=== PATIENT | female | born 1960 | race Caucasian/White ===

== ENCOUNTER → 2017-10-20 | Outpatient (CLI) | payer OTHER ==
[~2017-10-20] MED LIST: ACTONEL5 MG; APRISO0.375 GM PO; DIVALPROEX SOD500 MG PO; FOLIC ACID1 MG PO; LANTUS100 UNITS/; LEVOTHYROXINE112 MCG PO; NOVOLOG100 UNIT/1; PANTOPRAZOLE SO20 MG PO; REZYST IM TABL150 MG; ULTRAM50 MG PO
--- NOTE | 2017-10-20 18:09 | Diagnostic Imaging Report ---
CT scan of the LEFT KNEE, WITHOUT injected contrast. TECHNIQUE: Standard departmental protocols were used. Sagittal and coronal reformatted images were obtained. HISTORY: Fall, swelling COMPARISON: Radiographs of the left femur April 18, 2017 FINDINGS: Bone: Beam hardening artifact secondary to the femoral intramedullary jose david. Diffusely decreased mineralization of the osseous structures limits bone detail. A comminuted proximal tibial fracture, extending to the articular surface at the lateral tibial plateau, maximal depression of the articular surface is approximately 4 mm (coronal image 29). The fracture lines are blurred with adjacent subtle callus formation. Joint: Mild medial and minimal patellofemoral compartment degenerative changes. A trace nonspecific joint effusion. Soft Tissues: Diffuse muscle atrophy. Diffuse scattered atherosclerotic vascular calcifications. IMPRESSION: 1. A subacute to early chronic incompletely healed intra-articular lateral tibial plateau fracture. 2. Osseous demineralization. Signed by: Dr. Thang Gama D.O., M.M.M. on 10/20/2017 6:05 PM
--- NOTE | 2017-10-20 18:32 | Diagnostic Imaging Report ---
TECHNIQUE: Magnetic resonance imaging of the RIGHT foot (fourth toe) was performed WITHOUT injected contrast. HISTORY: Ulcer fourth toe, diabetes COMPARISON: None available. DISCUSSION: Bone: Bone marrow edema of the fourth distal phalanx with confluent decreased fatty marrow signal of the mid to distal portion and apparent attenuation of the tuft. Joints: The amount of fluid within the regional joints is within physiologic limits. Mild scattered degenerative changes. Soft Tissues: No drainable fluid collection. Mild regional soft tissue edema. Diffuse atrophy of the visualized intrinsic muscles of the foot. IMPRESSION: Findings compatible with osteomyelitis involving the mid to distal aspect of the fourth distal phalanx. Signed by: Dr. Thang Gama D.O., M.M.M. on 10/20/2017 6:28 PM
== END ==
LOC: CARD 12:48
PROVIDERS: ATTEND Family Medicine
DX: S89.92XA Unspecified injury of left lower leg, initial encounter (principal); R22.42 Localized swelling, mass and lump, left lower limb
CPT/HCPCS: 93922; 93925; 93970

== ENCOUNTER 2017-11-01 18:42 | Inpatient (IN) | payer MEDICARE, OTHER ==
[~2017-11-01] VITALS: Ht 162.6 cm; Wt 84.0 kg
[~2017-11-01 18:42] MED LIST changes: -ACTONEL5 MG; +ACTONEL5 MG PO
--- OUTSIDE RECORDS SUMMARY | 2017-11-01 21:02 | XMS REPORT ---
Author Author [facility] Address Unknown Phone Unavailable Care Team Providers Care Equal Opportunity Representative Name Role Phone DENNIS VALDEZ Unavailable Unavailable Problems This patient has no known problems. Allergies, Adverse Reactions, Alerts This patient has no known allergies or adverse reactions. Medications This patient has no known medications. Results Test Description Test Time Test Comments Text Results Atomic Results Result Comments CT KNEE LEFT WO [facility] [address] [address] Patient Name: MELVI DONG MR #: [id number] : 1960 Age/Sex: 57/F Req #: [id number] Adm Physician: Ordered by: DENNIS VALDEZ MD Report #: [id number] Location: CARD Room/Bed: Procedure: [id number] CT/CT KNEE LEFT WO Exam Date: 10/20/17 Exam Time: 1600 REPORT STATUS: Signed CT scan of the LEFT KNEE, WITHOUT injected contrast. TECHNIQUE: Standard departmental protocols were used. Sagittal and coronal reformatted images were obtained. HISTORY: Fall , swelling COMPARISON: Radiographs of the left femur April 18, 2017 FINDINGS: Bone: Beam hardening artifact secondary to the femoral intramedullary jose david. Diffusely decreased mineralization of the osseous structures limits bone detail. A comminuted proximal tibial fracture, extending to the articular surface at the lateral tibial plateau, maximal depression of the articular surface is approximately 4 mm (coronal image 29). The fracture lines are blurred with adjacent subtle callus formation. Joint: Mild medial and minimal patellofemoral compartment degenerative changes. A trace nonspecific joint effusion. Soft Tissues: Diffuse muscle atrophy. Diffuse scattered atherosclerotic vascular calcifications. IMPRESSION: 1. A subacute to early chronic incompletely healed intra-articular lateral tibial plateau fracture. 2. Osseous demineralization. Signed by: Dr. Raquel Gama D.O., M.M.M. on 10/20/2017 6: 05 PM Dictated By: RAQUEL GAMA DO 04 Transcribed By: RIGO on 10/20/171804 COPY TO: DENNIS VALDEZ MD MRI FOOT RIGHT WO [address] [address] Patient Name: MELVI DONG MR #: [id number] : 1960 Age/Sex: 57/F Req #: [id number] Adm Physician: Ordered by: DENNIS VALDEZ MD Report #: [id number] Location: CARD Room/Bed: Procedure: [id number] MRI/MRI FOOT RIGHT WO Exam Date: Exam Time: REPORT STATUS: Signed TECHNIQUE: Magnetic resonance imaging of the RIGHT foot (fourth toe) was performed WITHOUT injected contrast. HISTORY : Ulcer fourth toe, diabetes COMPARISON: None available. DISCUSSION: Bone: Bone marrow edema of the fourth distal phalanx with confluent decreased fatty marrow signal of the mid to distal portion and apparent attenuation of the tuft. Joints: The amount of fluid within the regional joints is within physiologic limits. Mild scattered degenerative changes. Soft Tissues: No drainable fluid collection. Mild regional soft tissue edema. Diffuse atrophy of the visualized intrinsic muscles of the foot. IMPRESSION: Findings compatible with osteomyelitis involving the mid to distal aspect of the fourth distal phalanx. Signed by: Dr. Raquel Gama D.O., M.M.M. on 10/20/2017 6:28 PM Dictated By: RAQUEL GAMA DO 27 Transcribed By: RIGO on 10/20/171827 COPY TO: DENNIS VALDEZ MD FEMUR 2 VIEWS MINIMUM LEFT [address] [address] Patient Name: MELVI DONG MR #: [id number] : 1960 Age/Sex: 57/F Req #: [id number] Adm Physician: Ordered by: DENNIS VALDEZ MD Report #: [id number] Location: [facility] Room/Bed: Procedure: [id number] DX/FEMUR 2 VIEWS MINIMUM LEFT Exam Date: Exam Time: REPORT STATUS: Signed PROCEDURE: FEMUR 2 VIEWS MINIMUM LEFT COMPARISON: None. INDICATIONS: POSSIBLE INFECTION, LEFT LEG SWELLING PAIN FINDINGS: Left femoral diaphyseal jose david and intertrochanteric interlocking screw. No lucencies to suggest loosening or infection. Significant myositis ossificans along the inferior aspect of the femoral neck. There are no fractures, dislocations, lytic or blastic lesions. The bones are well-mineralized. The soft-tissues are unremarkable. CONCLUSION: Stable left femoral jose david with no evidence of loosening or infection. Dictated by: Regine Crouch M.D. on 2016 at 15:47 Electronically approved by: Regine Crouch M.D. on 04/18/2017 at 15:47 Dictated By: REGINE CROUCH MD 1542 Transcribed By: MATTIE on 04/18/17 1542 COPY TO: DENNIS VALDEZ MD HIP LEFT 2-3 VW (+/- PELVIS) [place] [address] Patient Name: MELVI DONG MR #: [id number] : 1960 Age/Sex: 57/F Req #: [id number] Adm Physician: Ordered by: DENNIS VALDEZ MD Report #: [id number] Location: [facility] Room/Bed: Procedure: [id number] DX/HIP LEFT 2-3 VW (+/- PELVIS) Exam Date: Exam Time: REPORT STATUS: Signed PROCEDURE: HIP LEFT 2 -3 VW (+/- PELVIS) COMPARISON: None. INDICATIONS: LEFT HIP PAIN , POSSIBLE INFECTION, PAIN FINDINGS: BONES: Left femoral diaphyseal jose david with intertrochanteric interlocking screw. No evidence of loosening or infection. Protuberant myositis ossificans. Normal mineralization. No acute fracture or dislocation. Joint spaces are within normal limits. SOFT TISSUES: Negative. OTHER: Negative. CONCLUSION: Left femoral diaphyseal jose david with intertrochanteric interlocking screw. No evidence of loosening or infection. Dictated by : Regine Crouch M.D. on 04/18/2017 at 15:48 Electronically approved by: Regine Crouch M.D. on 04/18/2017 at 15:48 Dictated By: REGINE CROUCH MD 1548 Transcribed By: MATTIE on 04/18/17 8307 COPY TO: DENNIS VALDEZ MD MAMMOGRAPHY DIGITAL SCR BILAT [place] [address] Patient Name: MELVI DONG MR #: [id number] : 1960 Age/Sex: 57/F [facility] #: [id number] [facility] Physician: Ordered by: DENNIS VALDEZ MD Report #: [id number] Location: MAMMO Room/Bed: Procedure: [id number] MG/MAMMOGRAPHY DIGITAL SCR BILAT Exam Date: 03/15/17 Exam Time: 1206 REPORT STATUS: Signed # [id number] - [id number] #BILATERAL DIGITAL SCREENING MAMMOGRAM WITH CAD: 03/15 CLINICAL: Routine screening. No prior exams were available for comparison. Current study contains 4 films. There are scattered fibroglandular elements in both breasts. Current study was also evaluated with a Computer Aided Detection (CAD) system. There is an amorphous calcification in the right breast central to the nipple middle depth. There is an amorphous calcification in the left breast at 11 o'clock anterior depth. Both of these calcifications were highlighted with CAD analysis. Scattered benign appearing calcifications are present in both breasts. No other significant masses or calcifications are seen in either breast. IMPRESSION: INCOMPLETE: NEEDS ADDITIONAL IMAGING EVALUATION The amorphous calcification in the right breast central to the nipple middle depth is indeterminate. Spot magnification/compression views are recommended. The amorphous calcification in the left breast at 11 o'clock anterior depth is indeterminate. Spot magnification/compression views are recommended. The patient will be contacted by the Mammography Department to schedule this appointment. Angelic Poe Jr., D.O. cw/:03/17/2017 13:22: 46 Carrot Buncher: Dagmar HARDING)(M), [facility] letter sent: Additional Imaging Needed Mammogram BI-RADS: 0 Indeterminate Dictated By: ANGELIC POE DO 1322 Transcribed By: PARUL on 03/17/17 1322 COPY TO: DENNIS VALDEZ MD
[2017-11-01 21:30] VITALS: BP 150/67
[2017-11-01 22:25] LABS: BASOPHILS % 0.6 % (0.0-1.0); EOSINOPHILS # (AUTO) 0.2 (0.0-0.4); EOSINOPHILS % 4.2 % (0.0-6.0); HEMATOCRIT 35.5 % (34.2-44.1); HEMOGLOBIN 11.7 g/dL (12.0-16.0); LYMPHOCYTES # (AUTO) 2.1 (1.0-3.2); MEAN CORPUSCULAR HEMOGLOBIN 29.7 pg (28-32); MEAN CORPUSCULAR VOLUME 90.1 fL (81-99); MONOCYTES # (AUTO) 0.3 (0.2-0.8); MONOCYTES % 5.9 % (4.4-11.3); NEUTROPHILS # (AUTO) 2.8 (2.1-6.9); NEUTROPHILS % 51.1 % (38.7-80.0); PLATELET COUNT 209 x10e3/uL (140-360); RED BLOOD COUNT 3.94 x10e6/uL (3.6-5.1); RED CELL DISTRIBUTION WIDTH 13.2 % (11.7-14.4)
[2017-11-01 22:35] VITALS: BP 150/67
[2017-11-01 22:38] LABS: ANION GAP 9.8 mmol/L (8-16); BLOOD UREA NITROGEN 13 mg/dL (7-26); BUN/CREATININE RATIO 18 (6-25); CALCIUM 9.2 mg/dL (8.4-10.2); CARBON DIOXIDE 31 mmol/L (22-29); CHLORIDE 103 mmol/L (98-107); CREATININE, SERUM 0.74 mg/dL (0.57-1.11); EST GLOMERULAR FILTRATION RATE > 60 ML/MIN (60-); GLUCOSE 77 mg/dL (74-118); POTASSIUM 3.8 mmol/L (3.5-5.1); SODIUM 140 mmol/L (136-145)
[2017-11-01] MEDS ORDERED: VANCOMYCIN 1GM/NS 250 ML 250 ML IV SCH (23:45)
[2017-11-02] VITALS: BP 166/72
[2017-11-02] MEDS ORDERED: HUMALOG100 UNIT/1 SQ (01:36)
[2017-11-02] MEDS ORDERED: [UNRECOGNIZED DRUG - OTHER] ×2 (01:36→01:37)
[2017-11-02] MEDS ORDERED: CLONIDINE HCL0.1 MG PO (01:36)
[2017-11-02] MEDS ORDERED: [UNRECOGNIZED DRUG - OTHER] PO (01:36)
[2017-11-02] MEDS ORDERED: PROBIOTIC & AC1 EACH PO (01:36)
[2017-11-02] MEDS ORDERED: LASIX40 MG PO (01:36)
[2017-11-02] MEDS ORDERED: [UNRECOGNIZED DRUG - OTHER] PO (01:36)
[2017-11-02] MEDS ORDERED: [UNRECOGNIZED DRUG - OTHER] SQ SCH (01:45)
[2017-11-02] MEDS ORDERED: [UNRECOGNIZED DRUG - OTHER] PO SCH (01:45)
[2017-11-02] MEDS: VANCOMYCIN 1GM/NS 250 ML 250 ML IV SCH ×2 (01:57→14:45)
[2017-11-02] MEDS ORDERED: SODIUM CHLORIDE 0.9% 250ML 0 ML ONE (01:58)
[2017-11-02] MEDS ORDERED: DEXTROSE 50% SYRINGE 50 ML IV PRN ×2 (02:15→02:30)
[2017-11-02 04:00] VITALS: BP 128/57
[2017-11-02] MEDS: LEVOTHYROXINE SODIUM 112 MCG TAB PO SCH (06:29)
[2017-11-02] MEDS: PANTOPRAZOLE SOD 40 MG TABEC PO SCH (07:30)
[2017-11-02] MEDS: INSULIN LISPRO 100 UNIT/1 ML 3ML VIAL SQ SCH ×4 (07:30→20:55)
[2017-11-02] MEDS ORDERED: INSULIN LISPRO 100 UNIT/1 ML 3ML VIAL SQ SCH ×3 (07:30→09:00)
[2017-11-02 08:00] VITALS: BP 128/58
[2017-11-02] MEDS: LACTOBACILLUS ACIDOPHILUS CAPSULE PO SCH (08:55)
[2017-11-02] MEDS: FUROSEMIDE 40 MG TAB PO SCH (08:55)
[2017-11-02] MEDS: [UNRECOGNIZED DRUG - OTHER] SC SCH ×2 (09:00→21:00)
[2017-11-02] MEDS ORDERED: MESALAMINE 0.375 GM CAPCR PO SCH (09:00)
[2017-11-02] MEDS: CLONIDINE HCL 0.1 MG TAB PO SCH ×2 (09:00→16:56)
[2017-11-02] MEDS ORDERED: RISEDRONATE 5 MG TAB PO SCH (09:00)
[2017-11-02] MEDS ORDERED: LACTOBACILLUS ACIDOPHILUS CAPSULE PO SCH (09:00)
[2017-11-02] MEDS: [UNRECOGNIZED DRUG - OTHER] PO SCH (09:00)
[2017-11-02] MEDS: ACETAMINOPHEN 325 MG TAB PO PRN (10:50)
[2017-11-02 12:00] VITALS: BP 177/74
--- NOTE | 2017-11-02 13:56 | Consultation ---
DATE OF CONSULTATION: November 02, 2017 PODIATRIC CONSULTATION ADMITTING PHYSICIAN: Dr. Jose Alfredo Escobar. CHIEF COMPLAINT: A painful sore on the end of the 4th right toe. HISTORY: The patient relates that she has had this lesion, an ulcer on the distal aspect for several months. She has been treated at at least one other podiatry office to no avail. She was sent to [facility] on October 20, 2017, for an MRI, which indicated osteomyelitis in the distal phalanx of the 4th toe. Her white count on admission is 5.5. PHYSICAL EXAMINATION: On clinical exam, the patient exhibits a mallet toe __5th and, therefore, is walking on the end of the toe. At this point, she has an ulcer approximately 0.8 cm in diameter on the distal aspect. On vascular exam, the pulses are all palpable. Capillary filling time is 2 seconds. IMPRESSION/PLAN: My impression is that the patient has osteomyelitis in the distal phalanx of the 4th right toe. My recommendation would be that the distal aspect of the toe be amputated and the patient be treated outpatient on oral antibiotics. The patient is scheduled at 7 o'clock tomorrow, October __2017, for a partial amputation 4th right. Job#: [id number] EV
[2017-11-02] MEDS ORDERED: DEPAKOTE DELAYED-RELEASE TAB 500 MG PO SCH (15:00)
[2017-11-02] MEDS ORDERED: SODIUM CHLORIDE 0.9% 250ML 250 ML ONE (15:04)
[2017-11-02 16:00] VITALS: BP 144/61
--- NOTE | 2017-11-02 16:14 | History and Physical ---
REASON FOR ADMISSION: The patient comes into the hospital as a direct admission for findings of osteomyelitis in the right foot. HISTORY OF PRESENT ILLNESS: Ms. Swetha Pires has a history of diabetes mellitus. She was in her usual state of health until a couple of months ago. The patient started having toe ulceration and infection. She was given multiple antibiotics and treated on an outpatient basis with antibiotics for the infection. Multiple debridements have been done. MRI was done, and the MRI showed osteomyelitis. The patient was admitted to the hospital for possible amputation of the toe and also IV antibiotics if needed. PAST MEDICAL HISTORY 1. History of diabetes mellitus. 2. History of asthma. 3. History of chronic kidney disease. 4. History of hyperlipidemia. 5. History of neuropathy. 6. History of allergic rhinitis. 7. History of lymphedema. 8. History of bipolar disorder. 9. Peripheral vascular disease. MEDICATIONS: Include: 1. Apriso 0.375 g. 2. Toujeo 40 units. 3. Humalog. 4. Pantoprazole. 5. Levothyroxine. 6. Trileptal 300 mg. 7. Furosemide 80. 8. Clonidine 0.1. 9. Pravastatin 20. 10. Actonel 5 mg for osteoporosis. 11. Glucagon for emergency hypoglycemic episodes. 12. The patient also has some mupirocin as needed. SURGICAL HISTORY 1. History of hysterectomy. 2. Cholecystectomy. 3. Left femur surgery. 4. Heart surgery. SOCIAL HISTORY: The patient has mental retardation and also lives with mother. No EtOH. No IV drug abuse either. REVIEW OF SYSTEMS: Negative for chest pain or shortness of breath. No nausea, vomiting, diarrhea. No constipation. No rectal bleeding. Positive for emotional lability. No diplopia. No blurry vision either. Positive for fever and tenderness in the right foot, especially the toe. PHYSICAL EXAMINATION GENERAL: The patient is alert and oriented times 3. VITALS: Blood pressure is 118/70. BMI is 30.89 with weight of 180. HEENT: Normocephalic and atraumatic. There is hearing loss on the left side. Oral cavity is moist. No lesions. Throat is normal, no exudate, no pharyngeal erythema. NECK: No JVD. CV: S1 and S2 normal, regular rate and rhythm. LUNGS: Clear to auscultation bilaterally. BACK: Full range of motion. MUSCULOSKELETAL: Plantar surface with tenderness of the left foot. Left knee tenderness. Also, ulceration of the left foot. EXTREMITIES: 2+ pitting edema on the left lower extremity. PSYCHIATRIC: Alert and oriented. Cognitive function is intact. Cooperative with exam. LABS: Pending. MRI shows chronic osteomyelitis. ASSESSMENT AND PLAN 1. Chronic osteomyelitis, left foot. The plan is to get into the hospital and start antibiotics. Have Dr. Ventura see the patient. The patient has been seen by Dr. Ventura, and the patient will have amputation of the toe tomorrow. After that, the patient can be discharged. Further recommendations per clinical course. We will continue to monitor the patient as inpatient and as an outpatient, too. We will also restart her home medications, especially her diabetic medications. 2. History of diabetes mellitus. 3. Hypertension. 4. Hyperlipidemia. 5. Peripheral arterial disease. 6. Depression. 7. Cognitive deficit. Job#: [id number]
[2017-11-02 20:00] VITALS: BP 170/71
[2017-11-02] MEDS ORDERED: [UNRECOGNIZED DRUG - OTHER] SQ SCH (21:00)
[2017-11-02] MEDS ORDERED: [UNRECOGNIZED DRUG - OTHER] PO SCH (21:00)
[2017-11-02] MEDS: [UNRECOGNIZED DRUG - OTHER] PO SCH (21:00)
[2017-11-03] VITALS (7 sets, daily range): BP systolic 105–147; BP diastolic 47–63
[2017-11-03] MEDS: VANCOMYCIN 1GM/NS 250 ML 250 ML IV SCH ×2 (02:00→14:41)
--- NOTE | 2017-11-03 02:27 | Consultation ---
DATE OF CONSULTATION: REASON FOR CONSULTATION: Right foot osteomyelitis. HISTORY OF PRESENT ILLNESS: This is a very pleasant 57-year-old female who has history of diabetes mellitus, asthma, chronic kidney disease, hyperlipidemia, neuropathy, allergic rhinitis, lymphedema, bipolar disorder, vascular disease, who is coming to the hospital with redness and swelling of her right foot. The patient has been having this problem for several months ago. Apparently, she had an ulcer. She had been seeing podiatry as an outpatient, had multiple debridements, multiple oral antibiotics, but in spite of that it is getting progressively worse. Most recently MRI was done, showed to have osteomyelitis, so she was sent to the hospital for surgical debridement and possible amputation. Infectious disease was consulted. Patient does not provide any complaints at present time. Her family at the bedside. PAST MEDICAL HISTORY: As mentioned above. Diabetes mellitus, asthma, chronic kidney disease, hyperlipidemia, neuropathy, lymphedema, bipolar disorder, vascular disease. PAST SURGICAL HISTORY: Hysterectomy, cholecystectomy, left femur surgery, and heart surgery. SOCIAL HISTORY: She is mentally retarded. There is no smoking, drug abuse, alcohol abuse. FAMILY HISTORY: Hypertension. REVIEW OF SYSTEMS: HEENT: There is no headache, visual changes or hearing changes. GI: There is no nausea, no vomiting, no diarrhea. CARDIAC: There is no arrhythmia. NEURO: No seizure activity. SKIN: There is no rash. LABS: White count 5.42, hemoglobin 11. Her sodium 140, potassium 3.8, creatinine 0.74. PHYSICAL EXAMINATION: GENERAL: She is currently alert and oriented, follows commands. VITALS: Stable, afebrile. HEENT: She does not appear icteric. NECK: Supple. CHEST: Clear. HEART: S1 and S2. No murmur. ABDOMEN: Soft. Bowel sounds present. No tenderness. EXTREMITIES: No edema. SKIN: No rash. The foot has no erythema or edema, but there is an ulcer noted and swelling of the toe. MEDICATIONS: She is currently on vancomycin and clonidine. IMPRESSION: Osteomyelitis of the fourth digit. Patient is going for amputation. Continue with vancomycin for the time being. Will add Invanz since SHE IS ALLERGIC TO PENICILLIN. Await culture and sensitivity. Will see the finding of the surgery and how she is going to do. Discussed with the family. Will follow complete blood cell count and chemistry panel. Obtain a sedimentation rate, C-reactive protein. Depending on the surgery, may have intravenous antibiotic for a week or two post surgery. Will follow with you. Thank you. Job#: [id number]
[2017-11-03] MEDS: ERTAPENEM 1GM/NS 100ML 100 ML IV SCH (02:30)
[2017-11-03] MEDS: LEVOTHYROXINE SODIUM 112 MCG TAB PO SCH (04:33)
[2017-11-03] MEDS: INSULIN LISPRO 100 UNIT/1 ML 3ML VIAL SQ SCH ×4 (07:30→20:23)
[2017-11-03] MEDS: PANTOPRAZOLE SOD 40 MG TABEC PO SCH (07:30)
[2017-11-03] MEDS ORDERED: MESALAMINE 0.375 GM CAPCR PO SCH (09:00)
[2017-11-03] MEDS: [UNRECOGNIZED DRUG - OTHER] SC SCH ×2 (09:00→21:00)
[2017-11-03] MEDS: [UNRECOGNIZED DRUG - OTHER] PO SCH (09:00)
[2017-11-03] MEDS ORDERED: MESALAMINE 500 MG CAPCR PO SCH (09:00)
[2017-11-03] MEDS: MESALAMINE 0.375 GM CAPCR PO SCH (10:18)
[2017-11-03] MEDS: CLONIDINE HCL 0.1 MG TAB PO SCH ×2 (10:22→17:00)
[2017-11-03] MEDS: FUROSEMIDE 40 MG TAB PO SCH (10:22)
[2017-11-03] MEDS: LACTOBACILLUS ACIDOPHILUS CAPSULE PO SCH (10:22)
--- NOTE | 2017-11-03 10:35 | Operative Report ---
DATE OF PROCEDURE: November 03, 2017 PREOPERATIVE DIAGNOSIS: Osteomyelitis distal aspect, 4th toe. POSTOPERATIVE DIAGNOSIS: Osteomyelitis distal aspect, 4th toe. OPERATIVE PROCEDURE: Partial amputation, 4th right toe. DESCRIPTION OF PROCEDURE: The patient was placed on the OR table in the supine position. The right lower extremity was prepped and draped in the usual manner. Hemostasis was accomplished with a pneumatic cuff set at ankle level at 250 mmHg. The patient had IV sedation with a local anesthetic consisting of 5 mL of 0.5 Marcaine. A fish-mouth incision was made on the distal aspect of the 4th right toe. The dorsal lip came from medial to lateral across the dorsum of the toe at the level of the back of the nail. A similar incision was made on the plantar aspect. Both incisions were then extended proximally approximately 1 cm. The 2 lips were then retracted proximally. This exposed both the middle and distal phalanx. The proximal interphalangeal joint between the middle and proximal phalanx was then disarticulated and the middle and distal phalanx were removed. The soft tissue was remodeled and the wound was flushed extensively and then, the skin was closed with 4-0 nylon. A sterile compression dressing was then applied. At this time, the pneumatic cuff was released and a reflex hyperemia was observed in the remaining digits. The patient tolerated the procedure and anesthesia well and left the OR to recovery in good condition with vital signs stable. Job#: [id number] PSO
[2017-11-03] MEDS ORDERED: LIDOCAINE HCL 2% LOCAL INJ 5 ML SDV VIAL INJ ONE (13:42)
[2017-11-03] MEDS ORDERED: ONDANSETRON HCL INJ 2 MG/ML VIAL ONE (13:42)
[2017-11-03] MEDS ORDERED: PROPOFOL IV EMULSION 10 MG/ML 20 ML VIAL ONE (13:42)
[2017-11-03] MEDS ORDERED: MIDAZOLAM HCL 2 MG/2 ML VIAL ONE (17:31)
[2017-11-03] MEDS ORDERED: FENTANYL CITRATE/PF 100MCG/2 ML INJ ONE (17:31)
[2017-11-03] MEDS: RISEDRONATE 5 MG TAB PO SCH (20:37)
[2017-11-03] MEDS: [UNRECOGNIZED DRUG - OTHER] PO SCH (20:37)
[2017-11-04] VITALS (9 sets, daily range): BP systolic 111–152; BP diastolic 55–68
[2017-11-04] MEDS: ERTAPENEM 1GM/NS 100ML 100 ML IV SCH (00:19)
[2017-11-04] MEDS: ACETAMINOPHEN 325 MG TAB PO PRN (01:37)
[2017-11-04] MEDS: VANCOMYCIN 1GM/NS 250 ML 250 ML IV SCH ×2 (02:10→14:27)
[2017-11-04] MEDS: LEVOTHYROXINE SODIUM 112 MCG TAB PO SCH (05:54)
[2017-11-04] MEDS: INSULIN LISPRO 100 UNIT/1 ML 3ML VIAL SQ SCH ×4 (07:30→21:54)
[2017-11-04] MEDS: PANTOPRAZOLE SOD 40 MG TABEC PO SCH (07:30)
[2017-11-04] MEDS: MESALAMINE 0.375 GM CAPCR PO SCH (09:08)
[2017-11-04] MEDS: [UNRECOGNIZED DRUG - OTHER] PO SCH (09:08)
[2017-11-04] MEDS: LACTOBACILLUS ACIDOPHILUS CAPSULE PO SCH (09:08)
[2017-11-04] MEDS: [UNRECOGNIZED DRUG - OTHER] SC SCH ×2 (09:08→21:54)
[2017-11-04] MEDS: CLONIDINE HCL 0.1 MG TAB PO SCH ×2 (09:08→17:06)
[2017-11-04] MEDS: FUROSEMIDE 40 MG TAB PO SCH (09:08)
[2017-11-04] MEDS: [UNRECOGNIZED DRUG - OTHER] PO SCH (21:54)
[2017-11-04] MEDS: RISEDRONATE 5 MG TAB PO SCH (21:54)
[2017-11-05] MEDS: ERTAPENEM 1GM/NS 100ML 100 ML IV SCH (00:25)
[2017-11-05] MEDS: VANCOMYCIN 1GM/NS 250 ML 250 ML IV SCH ×2 (03:00→14:00)
[2017-11-05 04:30] VITALS: BP 127/58
[2017-11-05] MEDS: LEVOTHYROXINE SODIUM 112 MCG TAB PO SCH (06:43)
[2017-11-05] MEDS: ACETAMINOPHEN 325 MG TAB PO PRN (07:03)
[2017-11-05 07:10] VITALS: BP 132/63
[2017-11-05] MEDS: INSULIN LISPRO 100 UNIT/1 ML 3ML VIAL SQ SCH ×3 (07:30→16:30)
[2017-11-05 07:32] VITALS: BP 132/63
[2017-11-05] MEDS: PANTOPRAZOLE SOD 40 MG TABEC PO SCH (07:45)
[2017-11-05] MEDS: [UNRECOGNIZED DRUG - OTHER] PO SCH (09:19)
[2017-11-05] MEDS: [UNRECOGNIZED DRUG - OTHER] SC SCH (09:19)
[2017-11-05] MEDS: LACTOBACILLUS ACIDOPHILUS CAPSULE PO SCH (09:19)
[2017-11-05] MEDS: FUROSEMIDE 40 MG TAB PO SCH (09:19)
[2017-11-05] MEDS: MESALAMINE 0.375 GM CAPCR PO SCH (09:19)
[2017-11-05] MEDS: CLONIDINE HCL 0.1 MG TAB PO SCH ×2 (09:19→17:00)
[2017-11-05 11:24] VITALS: BP 112/54
--- NOTE | 2017-11-05 14:34 | Discharge Summary ---
The patient was admitted for osteomyelitis of the right foot. She also has a history of diabetes, asthma, chronic kidney disease, hyperlipidemia, allergic rhinitis, lymphedema, bipolar and peripheral vascular disease. She was admitted and started on IV antibiotics. She was seen by podiatry and infectious disease and continued on her home medications. She underwent partial amputation of the right foot 4th digit on 11/03/2017. She tolerated surgery well and continued to improve. Today when she was seen she was afebrile. Her heart rate was 76, respiratory rate 18, blood pressure 112/60. She was awake, alert and oriented times 3. Her labs and medications were reviewed, and she was considered stable to be discharged home. DISCHARGE DIAGNOSES 1. Osteomyelitis of the 4th right toe, which had been treated with amputation and intravenous antibiotics. Podiatry, Dr. Ventura was following her and was planning to continue wound care as outpatient in his clinic. 2. History of diabetes and hypertension. She was requested to continue her home medications. 3. Hyperlipidemia. She was requested to continue her home medications. 4. She also has a history of depression and cognitive defect. She was again asked to continue her home medicines. The plan was for her to go home on further p.o. doxycycline and to follow up with podiatry next Monday, primary care next week and also with infectious disease. ALEXX YANEZ M.D. Job#: [id number]
[2017-11-05] MEDS ORDERED: DOXYCYCLINE HY100 MG PO ×3 (14:43→17:07)
[2017-11-05 15:41] VITALS: BP 108/53
== END 2017-11-05 18:15 | disposition home or self-care (01) | DRG 617 ==
LOC: MED/SURG3 21:00
PROVIDERS: ADMIT Family Medicine; ATTEND Family Medicine
PROC: 0Y6V0Z3 Detachment at Right 4th Toe, Low, Open Approach (ICD-10-PCS; principal; 2017-11-03 07:00)
DX: E11.69 Type 2 diabetes mellitus with other specified complication (principal); M86.671 Other chronic osteomyelitis, right ankle and foot; Z79.4 Long term (current) use of insulin; E11.51 Type 2 diabetes mellitus with diabetic peripheral angiopathy without gangrene; R41.89 Other symptoms and signs involving cognitive functions and awareness; E11.22 Type 2 diabetes mellitus with diabetic chronic kidney disease; I12.9 Hypertensive chronic kidney disease with stage 1 through stage 4 chronic kidney disease, or unspecified chronic kidney disease; N18.9 Chronic kidney disease, unspecified; I25.10 Atherosclerotic heart disease of native coronary artery without angina pectoris; F31.9 Bipolar disorder, unspecified; E78.5 Hyperlipidemia, unspecified; Z88.0 Allergy status to penicillin
CPT/HCPCS: 36415; 80048; 80202; 82948; 83036; 85025; 86140; 88305; 88311; 96367; 96372; J2001; J2250; J2405; J3370; J7050

== ENCOUNTER → 2017-12-29 | Outpatient (CLI) | payer OTHER ==
[~2017-12-29] MED LIST changes: +CLONIDINE HCL0.1 MG PO; +DOXYCYCLINE HY100 MG PO; +HUMALOG100 UNIT/1 SQ; +LASIX40 MG PO; +PROBIOTIC & AC1 EACH PO; +[UNRECOGNIZED DRUG - OTHER]; +[UNRECOGNIZED DRUG - OTHER] PO; +[UNRECOGNIZED DRUG - OTHER] PO
--- NOTE | 2017-12-29 16:29 | Diagnostic Imaging Report ---
PROCEDURE:US LIVER COMPARISON:None. INDICATIONS:ELEVATED LIVER ENZYMES TECHNIQUE: Zuniga-scale and color Doppler transverse and longitudinal images of the right upper quadrant of the abdomen were obtained. FINDINGS: Liver: Measures 11.1 cm in length. The echotexture is normal. No mass. Main portal vein: Measures 0.8 cm in diameter with hepatopetal flow. Gallbladder: Absent. Common Bile Duct: 0.3 cm Right kidney: 9.3 cm. Normal echogenicity. No solid masses or hydronephrosis. Pancreas: The visualized portions are increased in echotexture without mass or ductal dilatation. Inferior vena cava: Patent. Aorta: Within normal limits. Ascites: None in the right upper quadrant of the abdomen. CONCLUSION: Status post cholecystectomy. Normal biliary tree. Pancreas lipomatosis. Sonographically normal liver. Dictated by: Queenie Robertson M.D. on 12/29/2017 at 16:32 Electronically approved by: Queenie Robertson M.D. on 12/29/2017 at 16:32
== END ==
LOC: US 14:18
PROVIDERS: ATTEND Family Medicine
DX: R94.5 Abnormal results of liver function studies (principal)
CPT/HCPCS: 76705

== ENCOUNTER → 2018-01-17 | Outpatient (CLI) | payer MEDICARE, OTHER ==
[~2018-01-17] MED LIST changes: +GADOBENATE DIMEGLUMINE 1 ML IV ONE
[2018-01-17 09:57] LABS: BLOOD UREA NITROGEN 18 mg/dL (7-26); BUN/CREATININE RATIO 22 (6-25); CREATININE, SERUM 0.82 mg/dL (0.57-1.11); EST GLOMERULAR FILTRATION RATE > 60 ML/MIN (60-)
--- NOTE | 2018-01-17 11:55 | Diagnostic Imaging Report ---
PROCEDURE: MRI ABDOMEN WOW TECHNIQUE: Multisequence multiplanar MR images of the abdomen and MRCP images were obtained without and with contrast. 16 cc of multisequence was administered intravenously. COMPARISON: Ultrasound 12/29/2017 INDICATIONS: Abnormal ultrasound FINDINGS: LIVER: No signal dropout on out of phase images to indicate hepatic steatosis. Normal liver contour. No hepatic signal abnormality. No focal hepatic lesions. BILIARY: No ductal dilatation or filling defect. Cholecystectomy. PANCREAS: No mass or ductal dilatation. Mild to moderate atrophy. SPLEEN: No splenomegaly. ADRENALS: No nodules. KIDNEYS: No hydronephrosis or mass in the kidneys. PERITONEUM / RETROPERITONEUM: No upper abdominal free fluid. LYMPH NODES: No upper abdominal lymphadenopathy. VESSELS: Unremarkable. 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 IMPRESSION: 1. Mild to moderate pancreatic atrophy in keeping with the ultrasound findings. 2. Cholecystectomy. Dictated by: Jony Drew M.D. on 01/17/2018 at 11:58 Electronically approved by: Jony Drew M.D. on 01/17/2018 at 11:58
== END ==
LOC: MRI 08:55
PROVIDERS: ATTEND Family Medicine
DX: R74.8 Abnormal levels of other serum enzymes (principal); K86.89 Other specified diseases of pancreas
CPT/HCPCS: 36415; 74183; 82565; 84520

== ENCOUNTER → 2019-03-11 | Day surgery (SDC) | payer MEDICARE, OTHER ==
[2019-02-15 15:51] LABS: BASOPHILS # (AUTO) 0.1 (0.0-0.1); BASOPHILS % 0.8 % (0.0-1.0); EOSINOPHILS # (AUTO) 0.4 (0.0-0.4); EOSINOPHILS % 5.8 % (0.0-6.0); HEMATOCRIT 37.4 % (34.2-44.1); HEMOGLOBIN 11.9 g/dL (12.0-16.0); LYMPHOCYTES # (AUTO) 2.3 (1.0-3.2); LYMPHOCYTES % 37.6 % (18.0-39.1); MEAN CORPUSCULAR HEMOGLOBIN 29.7 pg (28-32); MEAN CORPUSCULAR HGB CONC 31.8 g/dL (31-35); MEAN CORPUSCULAR VOLUME 93.3 fL (81-99); MONOCYTES # (AUTO) 0.3 (0.2-0.8); MONOCYTES % 5.2 % (4.4-11.3); NEUTROPHILS # (AUTO) 3.1 (2.1-6.9); NEUTROPHILS % 50.4 % (38.7-80.0); PLATELET COUNT 215 x10e3/uL (140-360); RED BLOOD COUNT 4.01 x10e6/uL (3.6-5.1); RED CELL DISTRIBUTION WIDTH 13.7 % (11.7-14.4)
[~2019-03-11] MED LIST changes: +DEXTROSE 5% 250ML 250 ML IV ONE; +DEXTROSE 5%/LACTATED RINGERS 1,000 ML IV ONE; +FENTANYL CITRATE/PF 100MCG/2 ML INJ ONE; -GADOBENATE DIMEGLUMINE 1 ML IV ONE; +GLUCAGON EMERGEN1 MG SQ; +HYOSCYAMINE 0.125 MG TAB ONE; +MIDAZOLAM HCL 2 MG/2 ML VIAL ONE; +PRAVASTATIN SOD20 MG PO; +PROPOFOL IV EMULSION 10 MG/ML 50 ML VIAL ONE; +SODIUM CHLORIDE 0.9% 1000ML 0 ML ONE; +TRAZODONE HCL100 MG PO; +TRILEPTAL300 MG PO; +TUJEO SQ
--- OUTSIDE RECORDS SUMMARY | 2019-03-11 07:06 | XMS REPORT | Continuity of Care Document ---
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 Phone [employer] Information [employer] Unavailable Unavailable Problems Problem Status Onset Date Classification Date Reported Comments Source R92.8 - OTH ABN AND INCONCLUSIVE FINDI Active 04/28/2017 [facility] [place] 793.81 - MAMMOGRAPHIC CA Active 10/14/2013 [facility] [place] FALL/HBS Active 03/09/2013 [facility] Bipolar Resolved Problem 05/20/2017 [facility] [place] COPD Resolved Problem 05/20/2017 [facility] Crohns disease Resolved Problem 05/20/2017 [facility] DM - Diabetes mellitus Resolved Problem 05/20/2017 [facility] [place] Bipolar Resolved Problem 03/12/2013 [facility] COPD Resolved Problem 03/12/2013 [facility] Crohns disease Resolved Problem 03/12/2013 [facility] DM - Diabetes mellitus Resolved Problem 03/12/2013 [facility] Contusion of rib on right side Active Problem 11/05/2017 [facility] Contusion of right knee Active Problem 11/05/2017 [facility] Medications Medication Details Route Status Patient Instructions Ordering Provider Order Date Source Folic Acid 1 Mg Tablet, 1 Mg Oral Daily Active 12/26/2015 [facility] Insulin regular 10 unit, Route: IVP, ONCE, kg, Priority: STAT, Start date: 03/10/13 1:14:00, Stop date: 03/10/13 1:14:00 IVP No Longer Active Alin 03/10/2013 [facility] ondansetron 4 mg, Route: PO, Drug form: TABDIS, ONCE, kg, Priority: STAT, Start date: 03/09/13 23:58:00, Stop date: 03/09/13 23:58:00 PO No Longer Active Alin 03/10/2013 [facility] Insulin regular 10 unit, Route: IVP, ONCE, kg, Priority: STAT, Start date: 03/09/13 23:04:00, Stop date: 03/09/13 23:04:00 IVP No Longer Active [facility] 03/10/2013 [facility] Sodium Chloride 0.9% (Bolus) IV 500 mL 500 mL, Rate: 500 ml/hr, Infuse over: 1 hr, Route: IV, Total Volume: 500, Priority: STAT, Start date: 03/09/13 23:03:00, Duration: 1 doses or times, Stop date: 03/10/13 0:02:00, Bolus DoseBolus Dose IV No Longer Active [facility] 03/10/2013 [facility] Acidophilus/B.bifidum/B.longum (Rezyst Im Tablet Chew) 150 Mg Tab.chew [facility] Clonidine Hcl 0.1 Mg Tablet Twice A Day Active [facility] Divalproex Sodium 500 Mg Tablet. Three Times A Day Active [facility] Doxycycline Hyclate 100 Mg Capsule Every 12 Hours Active [facility] Furosemide (Lasix) 40 Mg Tablet Daily Active [facility] Insulin Aspart (Novolog) 100 Unit/1 Ml Cartridge Active [facility] Insulin Glargine (Lantus) 100 Units/Ml Ml Active [facility] Insulin Lispro (Humalog) 100 Unit/1 Ml Cartridge Active [facility] Lactobac Cmb #3/Fos/Pantethine (Probiotic & Acidophilus Cap) 1 Each Capsule Daily Active [facility] Levothyroxine Sodium 112 Mcg Tablet Daily Active [facility] Mesalamine (Apriso) 0.375 Gm Cap.er.24h Daily Active [facility] Pantoprazole Sodium 20 Mg Tablet. Daily Active [facility] Risedronate Sodium (Actonel) 5 Mg Tablet Daily Active Unknown dose [facility] Torigel Am Active [facility] Tramadol Hcl (Ultram) 50 Mg Tablet Every 8 Hours as needed for Pain Active [facility] Tripaline Bedtime Active [facility] Trippaline Am Active [facility] Allergies, Adverse Reactions, Alerts Substance Category Reaction Severity Reaction type Status Date Reported Comments Source PENCILLIN Swelling Severe Allergy to Substance Active 12/04/2014 [facility] SULFA Swelling Severe Allergy to Substance Active 12/04/2014 [facility] Morphine Swelling Severe Allergy to Substance Active 11/02/2016 [facility] morphine Assertion Drug allergy Active [facility] penicillins Assertion Propensity to adverse reactions to substance Active [facility] [place] sulfa drugs Assertion Propensity to adverse reactions to substance Active [facility] Immunizations No Data Provided for This Section Results Order Name Results Value Reference Range Date Interpretation Comments Source Capillary blood glucose measurement by glucometer (mass/volume) Capillary blood glucose measurement by glucometer (mass/volume) 92 70 - 120 11/05/2017 [facility] Serum or plasma trough vancomycin level at trough (mass/volume) Serum or plasma trough vancomycin level at trough (mass/volume) 8.0 5.0 - 10.0 11/05/2017 [facility] Automated blood basophil count (count/volume) Automated blood basophil count (count/volume) 0.0 0.0 - 0.1 11/01/2017 [facility] Automated blood basophil count as percentage of total leukocytes Automated blood basophil count as percentage of total leukocytes 0.6 0.0 - 1.0 11/01/2017 [facility] Automated blood eosinophil count Automated blood eosinophil count 0.2 0.0 - 0.4 11/01/2017 [facility] Automated blood eosinophil count as percentage of total leukocytes Automated blood eosinophil count as percentage of total leukocytes 4.2 0.0 - 6.0 11/01/2017 [facility] Automated blood hematocrit (volume fraction) Automated blood hematocrit (volume fraction) 35.5 34.2 - 44.1 11/01/2017 [facility] Automated blood lymphocyte count as percentage ot total leukocytes Automated blood lymphocyte count as percentage ot total leukocytes 38.0 18.0 - 39.1 11/01/2017 [facility] Automated blood monocyte count as percentage of total leukocytes Automated blood monocyte count as percentage of total leukocytes 5.9 4.4 - 11.3 11/01/2017 [facility] Automated blood neutrophil count Automated blood neutrophil count 2.8 2.1 - 6.9 11/01/2017 [facility] Automated blood platelet count (count/volume) Automated blood platelet count (count/volume) 209 140 - 360 11/01/2017 [facility] Automated blood segmented neutrophil count as percentage of total leukocytes Automated blood segmented neutrophil count as percentage of total leukocytes 51.1 38.7 - 80.0 11/01/2017 [facility] Automated erythrocyte mean corpuscular hemoglobin (mass per erythrocyte) Automated erythrocyte mean corpuscular hemoglobin (mass per erythrocyte) 29.7 28 - 32 11/01/2017 [facility] Automated erythrocyte mean corpuscular hemoglobin concentration measurement (mass/volume) Automated erythrocyte mean corpuscular hemoglobin concentration measurement (mass/volume) 33.0 31 - 35 11/01/2017 [facility] Automated erythrocyte mean corpuscular volume Automated erythrocyte mean corpuscular volume 90.1 81 - 99 11/01/2017 [facility] Blood erythrocytes automated count (number/volume) Blood erythrocytes automated count (number/volume) 3.94 3.6 - 5.1 11/01/2017 [facility] Blood hemoglobin measurement (moles/volume) Blood hemoglobin measurement (moles/volume) 11.7 12.0 - 16.0 11/01/2017 [facility] Blood leukocytes automated count (number/volume) Blood leukocytes automated count (number/volume) 5.42 4.8 - 10.8 11/01/2017 [facility] Blood lymphocytes count (number/volume) Blood lymphocytes count (number/volume) 2.1 1.0 - 3.2 11/01/2017 [facility] Blood monocytes automated count (number/volume) Blood monocytes automated count (number/volume) 0.3 0.2 - 0.8 11/01/2017 [facility] Estimated glomerular filtration rate (GFR) determination Estimated glomerular filtration rate (GFR) determination >60 60 11/01/2017 [facility] Glucose measurement Glucose measurement 77 74 - 118 11/01/2017 [facility] Serum or plasma anion gap Serum or plasma anion gap 9.8 8 - 16 11/01/2017 [facility] Serum or plasma C reactive protein measurement (mass/volume) Serum or plasma C reactive protein measurement (mass/volume) 3.5 0.0 - 4.9 11/01/2017 [facility] Serum or plasma calcium measurement (mass/volume) Serum or plasma calcium measurement (mass/volume) 9.2 8.4 - 10.2 11/01/2017 [facility] Serum or plasma carbon dioxide, total measurement (moles/volume) Serum or plasma carbon dioxide, total measurement (moles/volume) 31 22 - 29 11/01/2017 [facility] Serum or plasma chloride measurement (moles/volume) Serum or plasma chloride measurement (moles/volume) 103 98 - 107 11/01/2017 [facility] Serum or plasma creatinine measurement (mass/volume) Serum or plasma creatinine measurement (mass/volume) 0.74 0.57 - 1.11 11/01/2017 [facility] Serum or plasma potassium measurement (moles/volume) Serum or plasma potassium measurement (moles/volume) 3.8 3.5 - 5.1 11/01/2017 [facility] Serum or plasma sodium measurement (moles/volume) Serum or plasma sodium measurement (moles/volume) 140 136 - 145 11/01/2017 [facility] Serum or plasma urea nitrogen measurement (mass/volume) Serum or plasma urea nitrogen measurement (mass/volume) 13 7 - 26 11/01/2017 [facility] Serum or plasma urea nitrogen/creatinine mass ratio Serum or plasma urea nitrogen/creatinine mass ratio 18 6 - 25 11/01/2017 [facility] Red Cell Distribution Width 13.2 11.7 - 14.4 11/01/2017 [facility] IM GRANULOCYTES % 0.2 0.0 - 1.0 11/01/2017 [facility] Absolute Immature Granulocyte (auto 0.01 0 - 0.1 11/01/2017 [facility] Hemoglobin A1c Percent 8.7 4.0 - 7.0 11/01/2017 [facility] BEDSIDE GLUCOSE TESTING Gluc POC Lifscn 305 70 - 99 03/10/2013 HI <sup>1</sup>Interpretive Data: Upper Reportable Limit: 200 mg/dL. [facility] BEDSIDE GLUCOSE TESTING Comment1 Notify RN/ 03/10/2013 NA [facility] BEDSIDE GLUCOSE TESTING Comment1 Notify RN/ 03/10/2013 NA [facility] BEDSIDE GLUCOSE TESTING Gluc POC Lifscn >400 70 - 99 03/10/2013 CRIT <sup>2</sup>Interpretive Data: Upper Reportable Limit: 200 mg/dL. [facility] CHEMISTRY eGFR 85 03/10/2013 NA <sup>3</sup>Result Comment: The eGFR is calculated using the CKD-EPI formula. In most young, healthy individuals the eGFR will be >90 mL/min/1.73m2. The eGFR declines with age. An eGFR of 60-89 may be normal in some populations, particularly the elderly, for whom the CKD-EPI formula has not been extensively validated. Use of the eGFR is not recommended in the following populations:& lt;br/>
Individuals with unstable creatinine concentrations, including patients and those with serious co-morbid conditions.

Patients with extremes in muscle mass or diet.

The data above are obtained from the National Kidney Disease Education Program (NKDEP) which additionally recommends that when the eGFR is used in patients with extremes of body mass index for purposes of drug dosing, the eGFR should be multiplied by the estimated BMI. [facility] CHEMISTRY Sodium Lvl 139 135 - 145 03/10/2013 Normal [facility] CHEMISTRY Creatinine Lvl 0.8 0.5 - 1.4 03/10/2013 Normal [facility] CHEMISTRY Calcium Lvl 7.8 8.5 - 10.5 03/10/2013 LOW [facility] CHEMISTRY AGAP 16.1 10.0 - 20.0 03/10/2013 Normal [facility] CHEMISTRY CO2 25 24 - 32 03/10/2013 Normal [facility] CHEMISTRY Potassium Lvl 5.1 3.5 - 5.1 03/10/2013 Normal [facility] CHEMISTRY Chloride Lvl 103 95 - 109 03/10/2013 Normal [facility] CHEMISTRY BUN 19 7 - 22 03/10/2013 Normal [facility] CHEMISTRY Glucose Lvl 523 70 - 99 03/10/2013 CRIT <sup>4</sup>Result Comment: Critical Result(s) called to louis fuentes at 03/09/2013 23:55 by/marilynn. Read back OK.
<sup>5</sup>Interpretive Data: Adult reference range values reflect the clinical guidelines
of the [place] [employer]. [facility] URINALYSIS UA Color Ltyellow 03/10/2013 NA [facility] URINALYSIS UA Urobilinogen 0.1 - 1.0 03/10/2013 NA [facility] URINALYSIS UA Ketones 20 mg/dL *ABN* (03/09/2013 23:04:00) Negative 03/10/2013 ABN [facility] URINALYSIS UA Protein Negative mg/dL (03/09/2013 23:04:00) Negative 03/10/2013 Normal [facility] URINALYSIS UA Glucose 500 mg/dL *ABN* (03/09/2013 23:04:00) Negative 03/10/2013 ABN [facility] URINALYSIS UA Weskan Yeast Occasional /HPF *ABN* (03/09/2013 23:04:00) None Seen 03/10/2013 ABN [facility] URINALYSIS UA Bili Negative *NA* (03/09/2013 23:04:00) Negative 03/10/2013 NA [facility] URINALYSIS UA Blood Negative (03/09/2013 23:04:00) Negative 03/10/2013 Normal [facility] URINALYSIS UA Nitrite Negative (03/09/2013 23:04:00) Negative 03/10/2013 Normal [facility] URINALYSIS UA Leuk Est Negative (03/09/2013 23:04:00) Negative 03/10/2013 Normal [facility] URINALYSIS UA Sq Epi Occasional /LPF *NA* (03/09/2013 23:04:00) Few 03/10/2013 NA [facility] URINALYSIS UA pH 6.0 5.0 - 8.0 03/10/2013 Normal [facility] URINALYSIS UA Turbidity Clear (03/09/2013 23:04:00) Clear 03/10/2013 Normal [facility] URINALYSIS UA Spec Grav 1.028 <=1.030 03/10/2013 Normal [facility] URINALYSIS UA Bacteria Occasional /HPF *NA* (03/09/2013 23:04:00) None Seen 03/10/2013 [facility] URINALYSIS UA RBC 1 0 - 2 03/10/2013 Normal [facility] URINALYSIS UA Mucus Few /LPF *NA* (03/09/2013 23:04:00) None Seen 03/10/2013 NA [facility] URINALYSIS UA WBC <1 0 - 5 03/10/2013 Normal [facility] Pathology Reports No Data Provided for This Section Diagnostic Reports Report Value Date Source Breast Mammo Diag ROSA incl CAD MA BILATERAL DIGITAL DIAGNOSTIC MAMMOGRAM WITH CAD: 05/17/2017 CLINICAL: /Abnormal Mammogram. Current study was evaluated with a Computer Aided Detection (CAD) system. Comparison is made to exams dated: 10/03/2013 mammogram - [facility], 02/06/2013 mammogram - [facility], 08/09/2010 mammogram, 09/08/2008 mammogram, and 09/05/2007 mammogram - [facility]. There are scattered fibroglandular densities in both breasts. There are benign appearing calcifications in both breasts that are stable. No significant masses, calcifications, or other findings are seen in either breast. There has been no significant interval change. IMPRESSION: BENIGN There is no mammographic evidence of malignancy. A 1 year screening mammogram is recommended. Professional services are provided by the [facility]. Charlie Jarrell M.D. cm/:05/17/2017 15:03:53 Carton Stamper(s): Tracee Wills RT(R)(M), [facility] This exam was dictated and interpreted by [id number] [facility] letter sent: BI-RADS 1/2 Mammogram BI-RADS: 2 [facility]ign [facility] [place] [facility] Mammo Screening [place] MA AMENDMENT: 10/10/2013 Jennifer Sahu D.O. Comparison is made to outside study dated 02/06/2013. No change to initial mammographic interpretation. Recommend additional diagnostic mammogram with possible ultrasound. Amended BI-RADS: 0 Indeterminate letter sent: Additional Imaging - DIGITAL MAMMO SCREENING ROSA MA BILATERAL DIGITAL SCREENING MAMMOGRAM WITH CAD: 10/03/2013 CLINICAL: Routine. Current study was evaluated with a Computer Aided Detection (CAD) system. Comparison is made to exams dated: 09/05/2007 mammogram, 09/08/2008 mammogram and 08/09/2010 mammogram - [facility]. The tissue of both breasts is heterogeneously dense, which could obscure detection of small masses. There is a cluster of calcifications in the right breast central to the nipple middle depth. No other significant masses, calcifications, or other findings are seen in either breast. IMPRESSION: INCOMPLETE: NEEDS ADDITIONAL IMAGING EVALUATION The cluster of calcifications in the right breast is indeterminate. Additional views are recommended. SUMMARY: The patient will be contacted by [facility] to return for further imaging. Attempts to contact the patient should also be made by the referring physician in the event that we are unsuccessful. Dr. Jennifer Sahu D.O. ht/penrad:10/03/2013 16:52:47 Carton Stamper: Charlene ESTRADA(R)(M), [facility] This exam was dictated and interpreted by [id number] for OBIN[facility] Bai. letter sent: Additional Imaging Mammogram BI-RADS: 0 Indeterminate 10/03/2013 [facility] Consultation Notes No Data Provided for This Section Discharge Summaries No Data Provided for This Section History and Physicals No Data Provided for This Section Vital Signs No Data Provided for This Section Encounters Location Location Details Encounter Type Encounter Number Reason For Visit Attending Provider ADM Date DC Date Status Source [facility] Emergency [id number] FALL/HBS GM ALIN 03/09/2013 03/10/2013 Active [facility] [place] [facility] [id number] _[id number] Dennis Valdez 10/03/2013 10/04/2013 [facility] [id number] DENNIS VALDEZ MD 03/15/2017 [facility] Registered [facility] [id number] DENNIS VALDEZ MD 04/18/2017 [facility] [place] [facility] [id number] Dennis Valdez 05/17/2017 05/18/2017 [facility] [id number] DENNIS VALDEZ MD 10/20/2017 [facility] Discharged Inpatient [id number] DENNIS VALDEZ MD 11/01/2017 11/05/2017 [facility] Procedures Procedure Code Date Perfomer Comments Source MRI lower extremity w/o dye [id number] 10/20/2017 [facility] Computed tomography, lower extremity; without contrast material [id number] 10/20/2017 [facility] Cholecystectomy [id number] OBIN[facility] Ann Cholecystectomy [id number] [facility] Assessment and Plan No Data Provided for This Section Plan of Care Plan of Care Date Source Discharge Date 11/05/17 6:15pm Disposition HOME, SELF-CARE Instructions/Education Provided Body Piercing Infection Prescriptions See Medication Section Additional Instructions/Education LOW SALT, LOW CHOLESTEROL DIET. ACTIVITY TOLERATED. CONTINUE HOME MEDICATION ORDERED. FOLLOW UP WITH DR BOWENS ON NEXT Monday11/08/17 AT [phone]. FOLLOW UP WITH YOUR PRIMARY CARE PHYSICIAN IN 1-2 WEEKS. 11/05/2017 [facility] Social History Social History Date Source Social History Problem Response Recorded Date/Time Onset Date Status Hx Psychiatric Problems Y - DEPRESSION 11/01/2017 10:19pm Not Applicable Not Applicable Hx Eating Disorder No 11/01/2017 10:19pm Not Applicable Not Applicable Hx Substance Use Disorder No 11/01/2017 10:19pm Not Applicable Not Applicable Hx Depression Yes 11/01/2017 10:19pm Not Applicable Not Applicable Hx Alcohol Use No 11/01/2017 10:19pm Not Applicable Not Applicable Hx Substance Use Treatment No 11/01/2017 10:19pm Not Applicable Not Applicable Hx Physical Abuse No 11/01/2017 10:19pm Not Applicable Not Applicable Smoking Status Start Date Stop Date Never Smoker 11/05/2017 [facility] No data available for this section 05/18/2017 [facility] Family History No Data Provided for This Section Advance Directives Order Name Results Value Date Source Advance Directives Advance Directives Directive Response Recorded Date/Time Does the patient have an advance directive? No 11/01/17 10:19pm If yes, is advance directive on file with [facility]? No 11/01/17 10:19pm If not on file with [facility] will patient provide a copy? No 11/01/17 10:19pm Do you have a Directive to Physician? No 11/01/17 6:38pm Do you have a Medical Power of Supervisor [employer]? No 11/01/17 6:38pm Do you have an out of hospital Do Not Resuscitate Order? No 11/01/17 6:38pm Do you have any special needs we should be aware of? No 11/01/17 6:38pm Do you have a support person here with you today? No 11/01/17 6:38pm Did patient receive Notice of Privacy Practices? Yes 11/01/17 6:38pm Did patient receive patient rights and responsibilities? Yes 11/01/17 6:38pm 11/05/2017 [facility] Functional Status No Data Provided for This Section
--- OUTSIDE RECORDS SUMMARY | 2019-03-11 07:06 | XMS REPORT | Summary of Care ---
Author Author [facility] [place] Organization [facility] [place] Address Unknown Phone Unavailable Encounter HQ Encntr_claribel(FIN) [id number] Date(s): 05/17/17 - 05/17/17 [facility] [place] [address] [place] [phone] Discharge Disposition: Home or Self Care Attending Physician: Jose Alfredo Escobar MD Vital Signs No data available for this section Problem List Condition Effective Dates Status Health Status Informant Bipolar(Confirmed) Resolved COPD(Confirmed) Resolved Crohns Resolved disease(Confirmed) DM - Diabetes Resolved mellitus(Confirmed) Allergies, Adverse Reactions, Alerts Substance Reaction Severity Status morphine Active penicillins Active sulfa drugs Active Medications No data available for this section Results No data available for this section Immunizations No data available for this section Procedures Procedure Date Related Diagnosis Body Site Cholecystectomy Social History No data available for this section Assessment and Plan No data available for this section
--- OUTSIDE RECORDS SUMMARY | 2019-03-11 07:06 | XMS REPORT | CCD ---
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 Phone Rod Ogden CP Allergies, Adverse Reactions, Alerts Substance Reaction Status morphine Active penicillins Active sulfa drugs Active Problem List Condition Effective Dates Status Bipolar Resolved COPD Resolved Crohns disease Resolved DM - Diabetes mellitus Resolved Medications Medication Instructions Start Date End Date Status Insulin regular 10 unit, Route: IVP, ONCE, kg, 03/10/2013 03/10/2013 Completed Priority: STAT, Start date: 03/10/13 1:14:00, Stop date: 03/10/13 1:14:00 Insulin regular 10 unit, Route: IVP, ONCE, kg, 03/09/2013 03/10/2013 Completed Priority: STAT, Start date: 03/09/13 23:04:00, Stop date: 03/09/13 23:04:00 Sodium Chloride 0.9% 500 mL, Rate: 500 ml/hr, Infuse 03/09/2013 03/10/2013 Completed (Bolus) IV 500 mL over: 1 hr, Route: IV, Total Volume: 500, Priority: STAT, Start date: 03/09/13 23:03:00, Duration: 1 doses or times, Stop date: 03/10/13 0:02:00, Bolus Dose Bolus Dose ondansetron 4 mg, Route: PO, Drug form: TABDIS, 03/09/2013 03/10/2013 Completed ONCE, kg, Priority: STAT, Start date: 03/09/13 23:58:00, Stop date: 03/09/13 23:58:00 Results BEDSIDE GLUCOSE TESTING Most recent to oldest [Reference Range]: 1 2 Gluc POC Lifscn [70-99 mg/dL] 305 mg/dL 1 *HI* (03/10/2013 01:55:00) >400 mg/dL 2 *CRIT* (03/10/2013 00:43:00) Comment1 Notify RN/MD *NA* (03/10/2013 01:55:00) Notify RN/MD *NA* (03/10/2013 00:43:00) 1Interpretive Data: Upper Reportable Limit: 200 mg/dL. 2Interpretive Data: Upper Reportable Limit: 200 mg/dL. URINALYSIS Most recent to oldest [Reference Range]: 1 2 UA Turbidity [Clear] Clear (03/09/2013 23:04:00) UA Color Ltyellow *NA* (03/09/2013 23:04:00) UA pH [5.0-8.0] 6.0 (03/09/2013 23:04:00) UA Spec Grav [<=1.030] 1.028 (03/09/2013 23:04:00) UA Glucose [Negative mg/dL] 500 mg/dL *ABN* (03/09/2013 23:04:00) UA Blood [Negative] Negative (03/09/2013 23:04:00) UA Ketones [Negative mg/dL] 20 mg/dL *ABN* (03/09/2013 23:04:00) UA Protein [Negative mg/dL] Negative mg/dL (03/09/2013 23:04:00) UA Urobilinogen [0.1-1.0 mg/dL] <=1.0 mg/dL *NA* (03/09/2013 23:04:00) UA Bili [Negative] Negative *NA* (03/09/2013 23:04:00) UA Leuk Est [Negative] Negative (03/09/2013 23:04:00) UA Nitrite [Negative] Negative (03/09/2013 23:04:00) UA WBC [0-5 /HPF] <1 /HPF (03/09/2013 23:04:00) UA RBC [0-2 /HPF] 1 /HPF (03/09/2013 23:04:00) UA Bacteria [None Seen /HPF] Occasional /HPF *NA* (03/09/2013 23:04:00) UA Sq Epi [Few /LPF] Occasional /LPF *NA* (03/09/2013 23:04:00) UA Mucus [None Seen /LPF] Few /LPF *NA* (03/09/2013 23:04:00) UA Goehner Yeast [None Seen /HPF] Occasional /HPF *ABN* (03/09/2013:04:00) CHEMISTRY Most recent to oldest [Reference Range]: 1 2 Sodium Lvl [135-145 mEq/L] 139 mEq/L (03/09/2013 23:25:00) Potassium Lvl [3.5-5.1 mEq/L] 5.1 mEq/L (03/09/2013:25:00) Chloride Lvl [95-109 mEq/L] 103 mEq/L (03/09/2013:25:00) CO2 [24-32 mEq/L] 25 mEq/L (03/09/2013:25:00) AGAP [10.0-20.0 mEq/L] 16.1 mEq/L (03/09/2013:25:00) Creatinine Lvl [0.5-1.4 mg/dL] 0.8 mg/dL (03/09/2013:25:00) eGFR 85 mL/min/1.73m2 3 *NA* (03/09/2013:25:00) BUN [7-22 mg/dL] 19 mg/dL (03/09/2013:25:00) Glucose Lvl [70-99 mg/dL] 523 mg/dL 4, 5 *CRIT* (03/09/2013 23:25:00) Calcium Lvl [8.5-10.5 mg/dL] 7.8 mg/dL *LOW* (03/09/2013 23:25:00) 3Result Comment: The eGFR is calculated using the CKD-EPI formula. In most young, healthy individuals the eGFR will be >90 mL/min/1.73m2. The eGFR declines with age. An eGFR of 60-89 may be normal in some populations, particularly the elderly, for whom the CKD-EPI formula has not been extensively validated. Use of the eGFR is not recommended in the following populations: Individuals with unstable creatinine concentrations, including patients and those with serious co-morbid conditions. Patients with extremes in muscle mass or diet. The data above are obtained from the National Kidney Disease Education Program ( NKDEP) which additionally recommends that when the eGFR is used in patients with extremes of body mass index for purposes of drug dosing, the eGFR should be mul tiplied by the estimated BMI. 4Result Comment: Critical Result(s) called to louis fuentes at 03/09/2013 23:55 by/marilynn. Read back OK. 5Interpretive Data: Adult reference range values reflect the clinical guidelines of the [place] [employer]. Procedures Procedures Date Related Diagnosis Cholecystectomy
--- OUTSIDE RECORDS SUMMARY | 2019-03-11 07:06 | XMS REPORT | Summary of Care ---
Author Organization Unknown Address Unknown Phone Unavailable Encounter Dates Location Diagnoses Discharge Providers Disposition 10/03/2013 [facility] Outpatient Imaging - Home Jose Alfredo Escobar 10/03/[address] Reason for Visit V76.12 - SCREEN MAMMOGRA Problem List Condition Effective Dates Status Health Status Informant Bipolar(Confirmed) Resolved COPD(Confirmed) Resolved Crohns Resolved disease(Confirmed) DM - Diabetes Resolved mellitus(Confirmed) Allergies, Adverse Reactions, Alerts Status Substance Reaction Severity Active morphine Active penicillins Active sulfa drugs Medications No data available for this section Medications Administered During Your Visit No data available for this section Immunizations No data available for this section
[2019-03-11 11:20] VITALS: BP 141/82
[2019-03-11 12:06] LABS: WBC,FECAL (FECAL LACTOFERRIN) NEGATIVE (NEGATIVE)
[2019-03-11 14:56] LABS: C DIFFICILE TOXIN A&B AMP PROB NEGATIVE (NEGATIVE)
--- NOTE | 2019-03-11 16:49 | Operative Report ---
DATE OF PROCEDURE: 03/11/2019 SURGEON: Prasanna Machuca MD PROCEDURES: Esophagogastroduodenoscopy with biopsies and a colonoscopy with biopsies. INDICATION FOR EGD: Acid reflux. INDICATIONS FOR COLONOSCOPY: Loose stools, history of Crohn disease. MEDICATIONS: The patient was done under MAC, please see anesthesiologist's note. PROCEDURE IN DETAIL: With the patient in left lateral decubitus position, a flexible fiberoptic Olympus gastroscope was introduced into the esophagus under direct visualization without any difficulty. There was some patchy erythema noted in distal esophagus. A minute tongue of velvety red mucosa was noted to extend proximally from the GE junction. Biopsies were obtained to rule out Conde. The scope was then advanced with ease into the stomach and the mucosa overlying the body appeared somewhat atrophic and biopsies were obtained. Three minute nodules were noted in the distal body of anterior wall and those were biopsied. The mucosa overlying the antrum revealed some patchy erythema and low-grade edema. Biopsies were obtained and sent to stain for H pylori. Pylorus appeared to be of normal contour and shape, it was intubated with ease and the scope was advanced all the way to the second portion of the duodenum. Biopsies were obtained from the second portion as well as the duodenal bulb to rule out sprue. The scope was then withdrawn back into the stomach and retroflexed and mucosa overlying the fundus and cardia appeared to be within normal limits. The scope was then straightened out, it was subsequently withdrawn. The patient tolerated the procedure well. IMPRESSION: 1. Mild distal esophagitis. 2. Rule out Conde esophagus. 3. Rule out atrophic gastritis. 4. Minute nodules, distal gastric body anterior wall, biopsied. 5. Rule out sprue. PLAN: Follow up histology. Initiate Protonix 40 mg one p.o. q.a.m. a.c. PROCEDURE IN DETAIL: The patient was then turned around and after adequate lubrication of the anal canal, flexible fiberoptic Olympus colonoscope was inserted into the rectum with ease and advanced all the way to the cecum. Mucosa overlying the cecum appeared to be within normal limits. The ileocecal valve was intubated and the scope was advanced into the terminal ileum. Biopsies were obtained. The scope was then withdrawn back into the colon. It was then withdrawn slowly. Mucosa overlying the ascending colon, transverse colon grossly appeared to be within normal limits. There were some mild patchy inflammatory changes noted in the left colon and rectum, multiple random biopsies were obtained. The scope was then retroflexed into the distal rectum and the area around the dentate line appeared to be within normal limits. The scope was then straightened out, it was subsequently withdrawn after securing an adequate stool specimen that was sent for the appropriate stool studies. The patient tolerated the procedure well. IMPRESSION: 1. Mild patchy left-sided colitis. 2. Proctitis, biopsied. PLAN: Follow up histology. Follow up stool studies. Continue Apriso 0.375 g four p.o. q.i.d. for now. The patient might benefit from a followup colonoscopy in 10 years. She will need a small bowel series if it has not been done. Prasanna Machuca MD [facility] [place] /[id number] cc: Jose Alfredo Escobar MD
== END | disposition home or self-care (01) ==
LOC: OR 06:55
PROVIDERS: ATTEND Internal Medicine Gastroenterology
DX: K50.919 Crohn's disease, unspecified, with unspecified complications (principal); K31.7 Polyp of stomach and duodenum; K29.50 Unspecified chronic gastritis without bleeding; K21.0 Gastro-esophageal reflux disease with esophagitis; K31.89 Other diseases of stomach and duodenum; K62.89 Other specified diseases of anus and rectum; R74.8 Abnormal levels of other serum enzymes; K76.0 Fatty (change of) liver, not elsewhere classified; E03.9 Hypothyroidism, unspecified; I10 Essential (primary) hypertension; H91.90 Unspecified hearing loss, unspecified ear; E11.9 Type 2 diabetes mellitus without complications; J44.9 Chronic obstructive pulmonary disease, unspecified; R56.9 Unspecified convulsions; R42 Dizziness and giddiness; F41.9 Anxiety disorder, unspecified; Z88.6 Allergy status to analgesic agent; Z88.0 Allergy status to penicillin; Z88.2 Allergy status to sulfonamides; Z01.810 Encounter for preprocedural cardiovascular examination; Z01.812 Encounter for preprocedural laboratory examination; Z80.0 Family history of malignant neoplasm of digestive organs
CPT/HCPCS: 36415 ×2; 43239; 45380; 82948; 83630; 83993; 85025; 87045; 87177; 87328; 87493; 93005; J2250; J2704; J3010; J7070; J7121; 45378; J7030

== ENCOUNTER → 2019-03-18 | Outpatient (CLI) | payer MEDICARE, OTHER ==
[~2019-03-18] MED LIST changes: -DEXTROSE 5% 250ML 250 ML IV ONE; -DEXTROSE 5%/LACTATED RINGERS 1,000 ML IV ONE; -FENTANYL CITRATE/PF 100MCG/2 ML INJ ONE; -HYOSCYAMINE 0.125 MG TAB ONE; -MIDAZOLAM HCL 2 MG/2 ML VIAL ONE; -PROPOFOL IV EMULSION 10 MG/ML 50 ML VIAL ONE; -SODIUM CHLORIDE 0.9% 1000ML 0 ML ONE
--- NOTE | 2019-03-18 16:19 | Diagnostic Imaging Report ---
Right upper quadrant abdominal ultrasound, 03/18/2019. History: Abnormal LFTs. Comparison: 12/29/2017. Discussion: Transverse and longitudinal images of the right upper quadrant of the abdomen were obtained demonstrating a liver of normal size and echogenicity measuring 11.5 cm in length. There is no evidence of a focal hepatic mass. The portal vein is patent with hepatopetal flow and is within normal limits measuring 10 mm in diameter. The biliary tree is within normal limits with the common bile duct measuring 4 mm in diameter. The gallbladder is absent. The right kidney is normal in size and echogenicity without evidence of hydronephrosis, stones, or mass and measures 9.1 cm in length. The pancreatic <body and tail> are visualized and are normal in appearance. The abdominal aorta is within normal limits. There is no evidence of free fluid. IMPRESSION: Status post cholecystectomy. No hepatic abnormality. Signed by: Alek Malhotra on 03/18/2019 4:15 PM
== END ==
LOC: US 15:19
PROVIDERS: ATTEND Internal Medicine Gastroenterology
DX: R74.8 Abnormal levels of other serum enzymes (principal); K76.0 Fatty (change of) liver, not elsewhere classified
CPT/HCPCS: 76705

== ENCOUNTER 2019-12-19 09:43 | Observation (INO) | payer MEDICARE, OTHER ==
[~2019-12-19] VITALS: Ht 162.6 cm; Wt 83.9 kg
[~2019-12-19 09:43] MED LIST changes: -EFFEXOR XR150 MG; -OMEGA 3 1,0001 EACH; -VITAMIN C250 MG
--- OUTSIDE RECORDS SUMMARY | 2019-12-19 10:39 | XMS REPORT ---
Author Author [facility] t Organization [facility] Address 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 Role Phone Brian VALDEZ MD PCP Brian VALDEZ Attphys Unavailable JOE SALEEM Attphys Unavailable Brian Valdez Attphys Payers Payer Name Policy Type Policy Number Effective Date Expiration Date [facility] [id number] 2017 00:00 :00 [facility] [id number] 2017 00:00:00 [facility] Problems Condition Name Condition Details Condition Category Status Onset Date Resolution Date Last Treatment Date Treating Clinician Comments Source R92.8 - OTH ABN AND INCONCLUSIVE FINDI R92.8 - OTH ABN AND INCONCLUSIVE FINDI Active 04/28/2017 [facility] [place] Diagnosis Active 2017-04-28 00:01:00 2017-05-17 13:24:00 M H [facility] [place] 793.81 - MAMMOGRAPHIC MD 793. 81 - MAMMOGRAPHIC MD Active 10/14/2013 [facility] [place] Diagnosis Active 2013-10-14 00:01:00 2014-03-22 22:11:00 [facility] [place] FALL/HBS FALL /HBS Active 03/09/2013 [facility] Diagnosis Active 2013-03-09 00:00:00 2013-04-04 14:57:00 [facility] Contusion of rib on right side Contusion of rib on right side Problem Active [facility] Contusion of right knee Contusion of right knee Problem Active [facility] Bipolar (qualifier value) Bipo lar (qualifier value) Resolved Problem 05/20/2017 [facility] [place] Problem Resolved 2017-05-20 00:51:59 [facility] [place] Chronic obstructive lung disease (disorder) Chronic obstructive lung disease (disorder) Resolved Problem 05/20/2017 [facility] [place] Problem Resolved 2017-05-20 00:51:59 [facility] [place] Crohn's disease (disorder) 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) Resolved Problem 05/20/2017 [facility] [place] Problem Resolved 2017-05-20 00:51:59 [facility] [place] Diabetes mellitus (disorder) D iabetes mellitus (disorder) Resolved Problem 05/20/2017 [facility] [place] Problem Resolved 2017-05-20 00:51:59 [facility] [place] Bipolar Bipo lar Resolved Problem 03/12/2013 [facility] Problem Resolved 2013-03-12 20:29:14 [facility] COPD COPD Resolved Problem 03/12/2013 [facility] Problem Resolved 2013-03-12 20:29:14 [facility] Crohns disease Croh ns disease Resolved Problem 03/12/2013 [facility] Problem Resolved 2013-03-12 20:29:14 [facility] DM - Diabetes mellitus DM - Diabetes mellitus Resolved Problem 03/12/2013 [facility] Problem Resolved 2013-03-12 20:29: 14 [facility] Allergies, Adverse Reactions, Alerts Allergy Name Allergy Type Status Severity Reaction(s) Onset Date Inacti ve Date Treating Clinician Comments Source PENCILLIN Allergy to Substance Active Severe Swelling 2014-12-04 00:00:00 [facility] SULFA Allergy to Substance Active Severe Swelling 2014-12-04 00:00:00 [facility] morphine morphine Active [facility] penicillins penicillins Active [facility] sulfa drugs sulfa drugs Active [facility] Social History Social Habit Start Date Stop Date Quantity Comments Source Social History 2017-05-18 04:59:00 2017-05-18 04:59:00 [facility] Medications Ordered Medication Name Filled Medication Name Start Date Stop Da te Current Medication? Ordering Clinician Indication Dosage Frequency Signature (SIG) Comments Components Source Insulin regular 2013-03-10 06:14:00 No Rod R Alin 10 unit, Route: IVP, ONCE, kg, Priority: STAT, Start date: 03/10/13 1:14:00, Stop date: 03/10/13 1:14:00 [facility] ondansetron 2013-03-10 04:58:00 No Rod R Alin 4 mg, Route: PO, Drug form: TABDIS, ONCE, kg, Priority: STAT, Start date: 03/09/13 23:58:00, Stop date: 03/09/13 23:58:00 [facility] Insulin regular 2013-03-10 04:04:00 No Rod R Alin 10 unit, Route: IVP, ONCE, kg, Priority: STAT, Start date: 03/09/13 23:04:00, Stop date: 03/09/13 23:04:00 [facility] Sodium Chloride 0.9% (Bolus) IV 500 mL 2013-03-10 04:03:00 No Rod R Alin 500 mL, Rate: 500 ml /hr, Infuse over: 1 hr, Route: IV, Total Volume: 500, Priority: STAT, Start date: 03/09/13 23:03:00, Duration: 1 doses or times, Stop date: 03/10/13 0:02:00, Bolus DoseBolus Dose [facility] Acidophilus/B.bifidum/B.longum (Rezyst Im Tablet Chew) 150 Mg Tab.chew Acidophilus/B.bifidum/B.longum (Rezyst Im Tablet Chew) 150 Mg Tab.chew Yes [facility] Clonidine Hcl 0.1 Mg Tablet Clonidine Hcl 0.1 Mg Tablet Yes 1 Twice A Day EKATERINA [facility] Divalproex Sodium 500 Mg Tablet. Divalproex Sodium 500 Mg Tablet.dr Yes 500 Three Times A Day [facility] Doxycycline Hyclate 100 Mg Capsule Doxycycline Hyclate 100 Mg Capsule Yes 100 Every 12 Hours [facility] Doxycycline Hyclate 100 Mg Capsule Doxycycline Hyclate 100 Mg Capsule Yes 100 Every 12 Hours [facility] Doxycycline Hyclate 100 Mg Capsule Doxycycline Hyclate 100 Mg Capsule Yes 100 Every 12 Hours [facility] Furosemide (Lasix) 40 Mg Tablet Furosemide (Lasix) 40 Mg Tablet Yes 40 Daily [facility] Insulin Aspart (Novolog) 100 Unit/1 Ml Cartridge Insul in Aspart (Novolog) 100 Unit/1 Ml Cartridge Yes [facility] Insulin Glargine (Lantus) 100 Units/Ml Ml Insulin Glar gine (Lantus) 100 Units/Ml Ml Yes [facility] Insulin Lispro (Humalog) 100 Unit/1 Ml Cartridge Insul in Lispro (Humalog) 100 Unit/1 Ml Cartridge Yes 4 [facility] Lactobac Cmb #3/Fos/Pantethine (Probiotic & Acidophilu s Cap) 1 Each Capsule Lactobac Cmb #3/Fos/Pantethine (Probiotic & Acidophilus Cap) 1 Each Capsule Yes 1 Daily [facility] Levothyroxine Sodium 112 Mcg Tablet Levothyroxine Sodium 112 Mcg Tabl et Yes 112 Daily [facility] Mesalamine (Apriso) 0.375 Gm Cap.er.24h Mesalamine (Apriso) 0.375 Gm Cap.er.24h Yes .375 Daily [facility] Pantoprazole Sodium 20 Mg Tablet. Pantoprazole Sodium 20 Mg Tablet. Yes 20 Daily [facility] Risedronate Sodium (Actonel) 5 Mg Tablet Risedronate S odium (Actonel) 5 Mg Tablet Yes 5 Daily [facility] Torigel Torigel Yes 32 Am [facility] Torigel Torigel Yes 32 Bedtime [facility] Tramadol Hcl (Ultram) 50 Mg Tablet Tramadol Hcl (Ultram) 50 Mg Tablet Yes 50 Every 8 Hours as needed for Pain [facility] Tripaline Tripaline Yes 450 Bedtime [facility] Trippaline Trippaline Yes 150 Am [facility] Folic Acid 1 Mg Tablet, 1 Mg Oral Folic Acid 1 Mg Tablet, 1 Mg O ral 2015-12-26 00:00:00 No 1 Daily [facility] Procedures Procedure Date / Time Performed Performing Clinician Sourc e MRI lower extremity w/o dye 2017-10-20 00:00:00 JOSÉ MIGUELDENNIS [facility] Computed tomography, lower extremity; without contrast material 2017-10-20 00:00:00 JOSÉ MIGUELDENNIS [facility] Cholecystectomy [facility] [place] Cholecystectomy [facility] Encounters Start Date/Time End Date/Time [facility] ID Source 2017-11-01 21:00:00 2017-11-05 18:15:00 Discharged Inpatient [facility] [id number] [facility] 2017-10-20 12:48:00 2017-10-20 12:48:00 Registered Clinic DENNIS GUPTA [facility] [id number] [facility] 2017-05-17 18:12:00 2017-05-18 04:59:00 [facility] - [place] [id number] [facility] [place] 2017-05-17 13:12:00 2017-05-17 23:59:00 Outpatient Ronna Valdez [facility] [id number] 2017-04-18 14:43:00 2017-04-18 14:43:00 Registered Clinic DENNIS GUPTA [facility] [id number] [facility] 2017-03-15 14:06:00 2017-03-15 14:06:00 Registered Clinic EDISON VALDEZ ABRAHAM [facility] [id number] [facility] 2013-10-03 16:50:00 2013-10-04 05:59:00 [facility] - [place] [id number] JANE Ann 2013-10-03 10:50:00 2013-10-03 23:59:00 Outpatient Ronna Valdez [facility] [id number] 2013-03-09 22:18:00 2013-03-10 02:22:00 Emergency MHIEAL T [facility] [id number] [facility] Results Test Description Test Time Test Comments Results Result Comments Source LIVER 2019-12-19 10:09:00 [place] [address] Patient Name: MELVI DONG MR #: [id number] : 1960 Age/Sex: 59/F Req #: [id number] Adm Physician: Ordered by: DENNIS VALDEZ MD Report #: [id number] Location: Room/Bed: Procedure: [id number] US/US LIVER Exam Date: 12/19/19 Exam Time: 0859 REPORT STATUS: Signed Abdominal Ultrasound limited. Right upper quadrant. Clinical Diagnosis: Elevated liver enzymes Comparison: 03/18/2019 Technique: Multiple transaxial and longitudinal images were obtained through the right upper quadrant of the abdomen abdomen with real time ultrasonography. Low MHz transducer was utilized. Multiple images were submitted for interpretation. Report: Liver: The liver measures 11.8 cm in the right midaxillary line. There are no focal masses. There are no cysts. The echogenicity is increased. Gallbladder: Surgically absent. Biliary tree: There is no evidence of intra or extra hepatic biliary ductal dilatation. The common bile duct measures 3 mm. Portal vein: The portal vein measures 7 mm. There is hepatopedal flow. Hepatic veins:Unremarkable. Pancreas: The pancreatic tail is not well seen secondary to overlying bowel gas. The remainder of the visualized pancreas has normal echogenicity and no masses. Ascites: Absent Pleural Effusion: Absent Right kidney: The right kidney measures 9.1 x 3.7 x 3.9 cm. There is no mass, cyst or or hydronephrosis. IVC/Aorta: Partially seen segments demonstrate no abnormality. Impression: The findings suggestive of diffuse fatty infiltration of the live r. In the presence of elevated liver enzymes, steatohepatitis should be considered. The gallbladder surgically absent. The right kidney shows no echogenic calculi. Signed by: Adrian Smith MD on 12/19/2019 10:11 AM Dictated By: ADRIAN SMITH MD 1011 Transcribed By: RIGO on 12/19/19 1011 COPY TO: DENNIS VALDEZ MD LIVER 2019-03-18 16:14:00 [place] [address] Patient Name: MELVI DONG MR #: [id number] : 1960 Age/Sex: 59/F Req #: [id number] [facility] Physician: Ordered by: JOE SALEEM MD Report #: [id number] Location: Room/Bed: Procedure: [id number] US/US LIVER Exam Date: 03/18/19 Exam Time: 1542 REPORT STATUS: Signed Right upper quadrant abdominal ultrasound, 03/18/2019. History: Abnormal LFTs. Comparison: 12/29/2017. Discussion: Transverse and longitudinal images of the right upper quadrant of the abdomen were obtained demonstrating a liver of normal size and echogenicity measuring 11.5 cm in length. There is no evidence of a focal hepatic mass. The portal vein is patent with hepatopetal flow and is within normal limits measuring 10 mm in diameter. The biliary tree is within normal limits with the common bile duct measuring 4 mm in diameter. The gallbladder is absent. The right kidney is normal in size and echogenicity without evidence of hydronephrosis, stones, or mass and measures 9.1 cm in length. The pancreatic <body and tail> are visualized and are normal in appearance. The abdominal aorta is within normal limits. There is no evidence of free fluid. IMPRESSION: Status post cholecystectomy. No hepatic abnormality. Signed by: Alek Malhotra on 03/18/2019 4:15 PM Dictated By: ALEK MALHOTRA MD 14 Transcribed By: RIGO on 03/18/191614 COPY TO: JOE SALEEM MD MRI ABDOMEN WOW 2018-01-17 11:58:00 [place] [address] Patient Name: MELVI DONG MR #: [id number] : 1960 Age/Sex: 58/F Req #: [id number] Adm Physician: Ordered by: DENNIS VALDEZ MD Report #: [id number] Location: MRI Room/Bed: Procedure: [id number] MRI/MRI ABDOMEN WOW Exam Date: Exam Time: REPORT STATUS: Signed PROCEDURE: MRI ABDOMEN WOW TECHNIQUE: Multisequence multiplanar MR images of the abdomen and MRCP images were obtained without and with contrast. 16 cc of multisequence was administered intravenously. COMPARISON: Ultrasound 12/29/2017 INDICATIONS: Abnormal ultrasound FINDINGS: LIVER: No signal dropout on out of phase images to indicate hepatic steatosis. Normal liver contour. No hepatic signal abnormality. No focal hepatic lesions. BILIARY: No ductal dilatation or filling defect. Cholecystectomy. PANCREAS: No mass or ductal dilatation. Mild to moderate atrophy. SPLEEN: No splenomegaly. ADRENALS: No nodules. KIDNEYS: No hydronephrosis or mass in the kidneys. PERITONEUM / RETROPERITONEUM: No upper abdominal free fluid. LYMPH NODES: No upper abdominal lymphadenopathy. VESSELS: Unremarkable. 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 IMPRESSION: 1. Mild to moderate pancreatic atrophy in keeping with the ultrasound findings. 2. Cholecystectomy. Dictated by: Jony Villa M.D. on 01/17/2018 at 11:58 Electronically approved by: Jony Villa M.D. on 01/17/2018 at 11:58 Dictated By: JONY VILLA MD 1158 Transcribed By: MATTIE on 01/17/18 1158 COPY TO: DENNIS VALDEZ MD Bedside Glucose 2017-11-05 15:55:00 Test Item Bedside Glucose (test code = 63909-5) 92 70-120 Meter ID: [id number] [facility] Kxfbzy6154-04-57 14:40:00* Test Item Value Reference Range Interpretation Comments Vancomycin Level Trough (test code = 4092-3) 8.0 5.0-10.0 [facility]active Zzermgi8934-30-09 10:52:00* Test Item Value Reference Range Interpretation Comments C-Reactive Protein (test code = 1988-5) 3.5 0.0-4.9 Performed at: - [facility] [address] [id number] Director: Kamaljit Chapin MD, Phone: [phone] Scott & White [facility] Brenhamodium Ofryj1942-50-19 22:40:00* Test Item Value Reference Range Interpretation Comments Sodium Level (test code = 2951-2) 140 136-145 [facility]assium Jtvgv2789-91-88 22:40:00* Test Item Value Reference Range Interpretation Comments Potassium Level (test code = 2823-3) 3.8 3.5-5.1 [facility]loride Zhvql3708-10-97 22:40:00* Test Item Value Reference Range Interpretation Comments Chloride Level (test code = 2075-0) 103 98-107 [facility]evilleCarbon Dioxide Wrjsj7801-61-64 22:40:00* Test Item Value Reference Range Interpretation Comments Carbon Dioxide Level (test code = 2028-9) 31 22-29 [facility]evilleAnion Hlv2645-92-71 22:40:00* Test Item Value Reference Range Interpretation Comments Anion Gap (test code = 53113-7) 9.8 8-16 [facility] Urea Mcgvkzit7805-67-16 22:40:00* Test Item Value Reference Range Interpretation Comments Blood Urea Nitrogen (test code = 3094-0) 13 7-26 [facility]evilleCreatinine2018-04-04 22:40:00* Test Item Value Reference Range Interpretation Comments Creatinine (test code = 2160-0) 0.74 0.57-1.11 [facility]UN/Creatinine Xaduo4966-18-29 22:40:00* Test Item Value Reference Range Interpretation Comments BUN/Creatinine Ratio (test code = 3097-3) 18 6-25 [facility]eville[facility]at Glomerular Filtration Rate 2017-11-01 22:40:00* Test Item Value Reference Range Interpretation Comments Estimat Glomerular Filtration Rate (test code = 88432-2) 60- >60 Ranges were taken from the National Kidney Disease Education Program and the [facility] Foundation literature.Reference ranges:60 or greater: Yzpbzi69-44 ( for 3 consecutive months): Chronic kidney disease 15 or less: Kidney failureCHRISTUS Spohn Hospital BeevilleGlucose Cthdw6438-81-38 22:40:00* Test Item Value Reference Range Interpretation Comments Glucose Level (test code = KRP0480) 77 74-118 [facility]evilleCalcium Xfduh9972-61-48 22:40:00* Test Item Value Reference Range Interpretation Comments Calcium Level (test code = 72272-0) 9.2 8.4-10.2 [facility]evilleHemoglobin A1c Ismjelc1810-17-51 22:34:00 * Test Item Value Reference Range Interpretation Comments Hemoglobin A1c Percent (test code = Hemoglobin A1c Percent) 8.7 4.0-7.0 [facility]eville[facility] Blood Rulmf8578-35-57 22:25:00* Test Item Value Reference Range Interpretation Comments White Blood Count (test code = 6690-2) 5.42 4.8-10.8 [facility]eville[facility] Blood Zeuuh7130-75-26 22:25:00* Test Item Value Reference Range Interpretation Comments Red Blood Count (test code = 789-8) 3.94 3.6-5.1 [facility]evilleHemoglobin2018-04-04 22:25:00* Test Item Value Reference Range Interpretation Comments Hemoglobin (test code = 28904-4) 11.7 12.0-16.0 [facility]eville[facility]ematocrit2018-04-04 22:25:00* Test Item Value Reference Range Interpretation Comments Hematocrit (test code = 4544-3) 35.5 34.2-44.1 [facility]evilleMean Corpuscular Dtswdm9207-29-51 22:25:00* Test Item Value Reference Range Interpretation Comments Mean Corpuscular Volume (test code = 787-2) 90.1 81-99 [facility]evilleMean Corpuscular Fipdlcfmlc8308-59-27 22:25:00* Test Item Value Reference Range Interpretation Comments Mean Corpuscular Hemoglobin (test code = 785-6) 29.7 28-32 [facility]evilleMean Corpuscular Hemoglobin Concent 2017-11-01 22:25:00* Test Item Value Reference Range Interpretation Comments Mean Corpuscular Hemoglobin Concent (test code = 786-4) 33.0 31-35 [facility]evilleRed Cell Distribution Skxxu6822-61-27 22:25:00* Test Item Value Reference Range Interpretation Comments Red Cell Distribution Width (test code = 21156-6) 13.2 11.7 -14.4 [facility]evillePlatelet Emtqy4967-24-53 22:25:00* Test Item Value Reference Range Interpretation Comments Platelet Count (test code = 777-3) 209 140-360 [facility]evilleNeutrophils (%) (Auto)2017-11-01 22:25:00 * Test Item Value Reference Range Interpretation Comments Neutrophils (%) (Auto) (test code = 84541-9) 51.1 38.7-80.0 [facility]evilleLymphocytes (%) (Auto)2017-11-01 22:25:00 * Test Item Value Reference Range Interpretation Comments Lymphocytes (%) (Auto) (test code = 736-9) 38.0 18.0-39.1 [facility]eville[facility]ocytes (%) (Auto)2017-11-01 22:25:00* Test Item Value Reference Range Interpretation Comments Monocytes (%) (Auto) (test code = 5905-5) 5.9 4.4-11.3 [facility]osinophils (%) (Auto)2017-11-01 22:25:00 * Test Item Value Reference Range Interpretation Comments Eosinophils (%) (Auto) (test code = 713-8) 4.2 0.0-6.0 [facility]eville[facility]ophils (%) (Auto)2017-11-01 22:25:00* Test Item Value Reference Range Interpretation Comments Basophils (%) (Auto) (test code = 706-2) 0.6 0.0-1.0 [facility]evilleIM GRANULOCYTES %2017-11-01 22:25:00* Test Item Value Reference Range Interpretation Comments IM GRANULOCYTES % (test code = IM GRANULOCYTES %) 0.2 0.0- 1.0 [facility]evilleNeutrophils # (Auto)2017-11-01 22:25:00* Test Item Value Reference Range Interpretation Comments Neutrophils # (Auto) (test code = 751-8) 2.8 2.1-6.9 [facility]evilleLymphocytes # (Auto)2017-11-01 22:25:00* Test Item Value Reference Range Interpretation Comments Lymphocytes # (Auto) (test code = 21870-5) 2.1 1.0-3.2 [facility]evilleMonocytes # (Auto)2017-11-01 22:25:00* Test Item Value Reference Range Interpretation Comments Monocytes # (Auto) (test code = 742-7) 0.3 0.2-0.8 [facility]eville[facility]osinophils # (Auto)2017-11-01 22:25:00* Test Item Value Reference Range Interpretation Comments Eosinophils # (Auto) (test code = 711-2) 0.2 0.0-0.4 [facility]eville[facility]ophils # (Auto)2017-11-01 22:25:00* Test Item Value Reference Range Interpretation Comments Basophils # (Auto) (test code = 704-7) 0.0 0.0-0.1 [facility]evilleAbsolute Immature Granulocyte (auto 2017-11-01 22:25:00* Test Item Value Reference Range Interpretation Comments Absolute Immature Granulocyte (auto (alex t code = Absolute Immature Granulocyte (auto) 0.01 0-0.1 [facility] IEPDBAT7221-82-33 06:55:[facility]16[facility] GLUCOSE MPUHZDO2330-60-00 05:43:00>400[facility] HospitalOyqxmpsodNQRJIKXGV3213-74-24 04:25:0085[facility] HospitalFiiquwtfxIIVHOHFHP8468-24-22 04:25:00 139[facility] HospitalSfsyazejlXUQJJRYTV8219-06-96 04:25:000.8[facility] HospitalOzhsjdrhfNKDHCKIRX0360-77-53 04:25:007.8[facility] HospitalFfdfhlsplQMDGQHRFL9735-63-07 04:25:0016.1M SoutheastCHEMISTRY 2013-03-10 04:25:0025[facility] HospitalNathvlgekWMYOKNKRQ9904-94-79 04:25:005.[facility] KPPTUJMZR8238-30-32 04:25:57585AR FcxvatepgRPVPOLMMD5196-15-41 04:25:0019 OizuerrczGYEJBYQTY6159-79-27 04:25:36456SH VwnwyfohmYIFOLTOJJW2716-00-01 04:04:0020 mg/dL *ABN*(03/09/2013 23:04:00) [facility] HospitalApnjmibuoINIFDIKKCP5273-20-59 04:04:00Negative mg/dL (03/09/2013 23:04:00) [facility] HospitalNpvdwownzYSMSMQHQAF1242-69-91 04:04:69948 mg/dL *ABN*(03/09/2013 23:04:00) [facility] HospitalSchiulyajVJOJGMSTWA9555-02-13 04:04:00Occasional /HPF *ABN*(03/09/2013 23:04:00) [facility]AL[facility] 2013-03-10 04:04:00Negative *NA*(03/09/2013 23:04:00) [facility] 2013-03-10 04:04:00Negative (03/09/2013 23:04:00) [facility] 2013-03-10 04:04:00Negative (03/09/2013 23:04:00) [facility] 2013-03-10 04:04:00Negative (03/09/2013 23:04:00) [facility] 2013-03-10 04:04:00Occasional /LPF *NA*(03/09/2013 23:04:00) [facility] TLXMEXKWWV1925-20-32 04:04:006.0[facility] HospitalJtnxsmvgoOWYAPCZMJS1991-96-01 04:04:00Clear (03/09/2013 23:04:00) [facility] HospitalUnelaruylZIFHWXXNPJ1033-37-08 04:04:001.028[facility] HospitalSpyxvejmyWMIMSBLOEU4416-55-64 04:04:00Occasional /HPF *NA*(03/09/2013 23:04:00) [facility] HospitalExfpmtduwBCCIQPGTTD1842-17-91 04:04:001[facility] HospitalCcfozwumkTUGDLPHXNC3090-85-37 04:04:00Few /LPF *NA*(03/09/2013 23:04:00) [facility] HospitalDlheaavceISAYBPCGRO2112-63-15 04:04:00<1MH [facility] [address] [place] [address] Patient Name: MELVI DONG MR #: [id number] : 1960 Age/Sex: 57/F Req #: [id number] Adm Physician: Ordered by: DENNIS VALDEZ MD Report #: [id number] Location: Room/Bed: Procedure: US/US LIVER Exam Date: Exam Time: REPORT STATUS: Signed PROCEDURE: US LIVER COMPARISON: None. INDICATIONS: ELEVATED LIVER ENZYMES TECHN IQUE: Zuniga-scale and color Doppler transverse and longitudinal images of the right upper quadrant of the abdomen were obtained. FINDINGS: Live r: Measures 11.1 cm in length. The echotexture is normal. No mass. Main po rtal vein: Measures 0.8 cm in diameter with hepatopetal flow. Gallbladder: Absent. Common Bile Duct: 0.3 cm Right kidney: 9.3 cm. Normal echog enicity. No solid masses or hydronephrosis. Pancreas: The visualized po rtions are increased in echotexture without mass or ductal dilatation. Inferior vena cava: Patent. Aorta: Within normal limits. Ascites: No ne in the right upper quadrant of the abdomen. CONCLUSION: Status pos t cholecystectomy. Normal biliary tree. Pancreas lipomatosis. Sonographicall y normal liver. Dictated by: Leroy Huffman M.D. on 12/29/2017 at 16:32 Electronically approved by: Leroy Huffman M.D. on 12/29/2017 at 16 :32 Dictated By: LEROY HUFFMAN MD 1630 Transcribed By: MATTIE on 12/29/17 1632 COPY TO: DENNIS VALDEZ MD CT KNEE LEFT WO [place] [address] Patient Name: MELVI DONG MR #: [id number] : 1960 Age/Sex: 57/F Req #: [id number] [facility] Physician: Ordered by: DENNIS VALDEZ MD Report #: [id number] Location: CARD Room/Bed: Procedure: [id number] CT/CT KNEE LEFT WO Exam Date: 10/20/17 Exam Time: 1600 REPORT STATUS: Signed CT scan of the LEFT KNEE, WITHOUT injected contrast. TECHNIQUE: Standard departmental protocols were used. Sagittal and coronal reformatted images were obtained. HISTORY: Fall, swelling COMPARISON: Radiograp hs of the left femur April 18, 2017 FINDINGS: Bone: Beam hardenin g artifact secondary to the femoral intramedullary jose david. Diffusely decreased mi neralization of the osseous structures limits bone detail. A comminuted prox imal tibial fracture, extending to the articular surface at the lateral tibial plateau, maximal depression of the articular surface is approximately 4 mm (c oronal image 29). The fracture lines are blurred with adjacent subtle callus f ormation. Joint: Mild medial and minimal patellofemoral compartment deg enerative changes. A trace nonspecific joint effusion. Soft Tissues: Diffuse muscle atrophy. Diffuse scattered atherosclerotic vascular calcificat ions. IMPRESSION: 1. A subacute to early chronic incompletely hea led intra-articular lateral tibial plateau fracture. 2. Osseous demineraliz ation. Signed by: Dr. Thang Vyas D.O., M.M.M. on 10/20/2017 6:05 PM Dictated By: THANG VYAS DO 04 COPY TO: DENNIS VALDEZ MD MRI FOOT RIGHT WO [place] [address] Patient Name: MELVI DONG MR #: [id number] : 1960 Age/Sex: 57/F Req #: [id number] Adm Physician: Ordered by: DENNIS VALDEZ MD Report #: [id number] Location: CARD Room/Bed: Procedure: [id number] MRI/MRI FOOT RIGHT WO E xam Date: Exam Time: REPORT STATUS: Signed TECHNIQUE: Magnetic resonance imaging of the RIGHT foot (fourth toe) was perf ormed WITHOUT injected contrast. HISTORY: Ulcer fourth toe, diabetes C OMPARISON: None available. DISCUSSION: Bone: Bone marrow edema of th e fourth distal phalanx with confluent decreased fatty marrow signal of the mi d to distal portion and apparent attenuation of the tuft. Joints: The amount of fluid within the regional joints is within physiologic limits. Mild scattered degenerative changes. Soft Tissues: No drainable fluid colle ction. Mild regional soft tissue edema. Diffuse atrophy of the visualized in trinsic muscles of the foot. IMPRESSION: Findings compatible with ost eomyelitis involving the mid to distal aspect of the fourth distal phalanx. Signed by: Karl LugoO., M.M.M. on 10/20/2017 6:28 PM Dictated By: THANG VYAS DO 27 Transcribed By: RIGO on 10/20/171827 COPY TO: DENNIS VALDEZ MD FEMUR 2 VIEWS MINIMUM LEFT [place] [address] Patient Name: MELVI DONG MR #: [id number] : 1960 Age/Sex: 57/F Req #: [id number] Adm Physician: Ordered by: DENNIS VALDEZ MD Report #: [id number] Location: RAD Room/Bed: Procedure: [id number] DX/FEMUR 2 VIEWS MINIMUM LEFT Exam Date: Exam Time: REPORT STATUS: Si gned PROCEDURE: FEMUR 2 VIEWS MINIMUM LEFT COMPARISON: None. INDICATIONS: POSSIBLE INFECTION, LEFT LEG SWELLING PAIN FINDINGS: L eft femoral diaphyseal jose david and intertrochanteric interlocking screw. No lucen cies to suggest loosening or infection. Significant myositis ossificans along the inferior aspect of the femoral neck. There are no fractures, dislocat ions, lytic or blastic lesions. The bones are well-mineralized. The soft-tiss ues are unremarkable. CONCLUSION: Stable left femoral jose david with no evidence of loosening or infection. Dictated by: Eugenio Crouch M.D. on 04/18/20 at 15:47 Electronically approved by: Eugenio Crouch M.D. on 04/18/2017 at 15 :47 Dictated By: EUGENIO CROUCH MD 1542 Transcribed By: MATTIE on 04/18/17 4848 COPY TO: DENNIS VALDEZ MD HIP LEFT 2-3 VW (+/- PELVIS) [place] [address] Patient Name: MELVI DONG MR #: [id number] : 1960 Age/Sex: 57/F Req #: [id number] [facility] Physician: Ordered by: DENNIS VALDEZ MD Report #: [id number] Location: RAD Room/Bed: Procedure: [id number] DX/HIP LEFT 2-3 VW (+/- P SULEMAN) Exam Date: Exam Time: REPORT STATUS: Signed PROCEDURE: HIP LEFT 2-3 VW (+/- PELVIS) COMPARISON: None. INDICATIONS: LEFT HIP PAIN, POSSIBLE INFECTION, PAIN FINDINGS: BONES: Left femoral diaphyseal jose david with intertrochanteric interlockin g screw. No evidence of loosening or infection. Protuberant myositis ossifica ns. Normal mineralization. No acute fracture or dislocation. Joint spaces are within normal limits. SOFT TISSUES: Negative. OTHER: Negative. CONCLUSION: Left femoral diaphyseal jose david with intertrochanteric inter locking screw. No evidence of loosening or infection. Dictated by: Eugenio Crouch M.D. on 04/18/2017 at 15:48 Electronically approved by: Kavin Tran on 04/18/2017 at 15:48 Dictated By: EUGENIO CROUCH MD 1548 Transcribed By: MATTIE on 04/18/171547 COPY TO: DENNIS VALDEZ MD MAMMOGRAPHY DIGITAL [place] [address] Patient Name: MELVI DONG MR #: [id number] : 1960 Age/Sex: 57/F Req #: [id number] Adm Physician: Ordered by: DENNIS VALDEZ MD Report #: [id number] Location: MAMMO R om/Bed: Procedure: [id number] MG/MAMMOGRAPHY DIGITAL SCR BILAT Exam Date: 03/15/17 Exam Time: 1206 REPORT STATUS: Signed #[id number] - [id number] #BILATERAL DIGITAL SCREE [place] MAMMOGRAM WITH CAD: 03/15/2017 CLINICAL: Routine screening. No prio r exams were available for comparison. Current study contains 4 films. Ther e are scattered fibroglandular elements in both breasts. Current study was a lso evaluated with a Computer Aided Detection (CAD) system. There is an leonardo phous calcification in the right breast central to the nipple middle depth. There is an amorphous calcification in the left breast at 11 o'clock anterior de pth. Both of these calcifications were highlighted with CAD analysis. Scat tered benign appearing calcifications are present in both breasts. No other si gnificant masses or calcifications are seen in either breast. IMPRESSION: INCOMPLETE: NEEDS ADDITIONAL IMAGING EVALUATION The amorphous calcification in the right breast central to the nipple middle depth is indeterminate. Spot magnification/compression views are recommended. The amorphous calcification in the left breast at 11 o'clock anterior depth is indeterminate. Spot mag nification/compression views are recommended. The patient will be contact ed by the Mammography Department to schedule this appointment. Matt castelan Jr., D.O. cw/:03/17/2017 13:22:45 [employer]: Dagmar HARDING)(Isa), [facility] letter sent: Addit ional Imaging Needed Mammogram BI-RADS: 0 Indeterminate Dictated By: EMMANUELLE WASHINGTON DO 1322 Curiel scribed By: PARUL on 03/17/17 1322 COPY TO: DENNIS VALDEZ MD
--- OUTSIDE RECORDS SUMMARY | 2019-12-19 10:39 | XMS REPORT | Continuity of Care Document ---
Author Author [facility] Organization [employer] Address Unknown Phone Unavailable Care Team Providers Care Seismograph Recorder Name Role Phone [employer] Unavailable Un available Problems Problem Status Onset Date Classification Date Reported Comments Source R92.8 - OTH ABN AND INCONCLUSIVE FINDI Active 04/28/2017 [facility] 793.81 - MAMMOGRAPHIC [place] Active 10/14/2013 [facility] FALL/HBS Active 03/09/2013 [facility] Bipolar (qualifier value) Reso lved Problem [facility] Chronic obstructive lung disease (disorder) Resolved Problem 05/20/2017 [facility] Crohn's disease (disorder) Res olved Problem [facility] Diabetes mellitus (disorder) R esolved Problem [facility] Bipolar Resolved Problem 03/12/2013 [facility] COPD Resolved Problem 03/12/2013 [facility] Crohns disease Resolved Problem 03/12/2013 [facility] DM - Diabetes mellitus Resolved Problem 03/12/2013 [facility] Medications Medication Details Route Status Patient Instructions Ordering Provider Order Date Source Insulin regular 10 unit, Route : IVP, ONCE, kg, Priority: STAT, Start date: 03/10/13 1:14:00, Stop date: 03/10/13 1:14:00 IVP No Longer Active [facility] 03/10/2013 [facility] ondansetron 4 mg, Route: PO, D rug form: TABDIS, ONCE, kg, Priority: STAT, Start date: 03/09/13 23:58:00, Stop date: 03/09/13 23:58:00 PO No Longer Active [facility] 03/10 [facility] Insulin regular 10 unit, Route : IVP, ONCE, kg, Priority: STAT, Start date: 03/09/13 23:04:00, Stop date: 03/09/13 23:04:00 IVP No Longer Active [facility] 03/10/2013 [facility] Sodium Chloride 0.9% (Bolus) IV 500 mL 500 mL, Rate: 500 ml/hr, Infuse over: 1 hr, Route: IV, Total Volume: 500, Priority: STAT, Start date: 03/09/13 23:03:00, Duration: 1 doses or times, Stop date: 03/10/13 0:02:00, Bolus DoseBolus Dose IV No Longer Active [facility] 03/10/2013 [facility] Allergies, Adverse Reactions, Alerts Substance Category Reaction Severity Reaction type Status Date Reported Comments Source morphine Assertion Drug allergy Active [facility] penicillins Assertion Propensity to adverse reacti ons to substance Active [facility] sulfa drugs Assertion Propensity to adverse reacti ons to substance Active [facility] Immunizations No Data Provided for This Section Results Order Name Results Value Reference Range Date Interpretation Comments Source BEDSIDE GLUCOSE TESTING Gluc POC Lif scn 305 70 - 99 03/10/2013 [place] <sup>1</sup>Interpretive Data: Upper Reportable Limit: 200 mg/dL. [facility] BEDSIDE GLUCOSE TESTING Comment1 Notify RN/ 03/10/2013 NA [facility] BEDSIDE GLUCOSE TESTING Comment1 Notify RN/ 03/10/2013 NA [facility] BEDSIDE GLUCOSE TESTING Gluc POC Lif scn >400 70 - 99 03/10/2013 CRIT <sup>2</sup>Interpretive Data: Upper Reportable Limit: 200 mg/dL. [facility] CHEMISTRY eGFR 85 03/10/2013 NA <sup>3</sup>Result Comment: [...] should be multiplied by the estimated BMI. [facility] CHEMISTRY Sodium Lvl 139 135 - 145 03/10/2013 Normal [facility] CHEMISTRY Creatinine Lvl 0.8 0.5 - 1.4 03/10/2013 Normal [facility] CHEMISTRY Calcium Lvl 7.8 8.5 - 10.5 03/10/2013 LOW [facility] CHEMISTRY AGAP 16.1 10.0 - 20.0 03/10/2013 Normal [facility] CHEMISTRY CO2 25 24 - 32 03/10/2013 Normal [facility] CHEMISTRY Potassium Lvl 5.1 3.5 - 5.1 03/10/2013 Normal [facility] CHEMISTRY Chloride Lvl 103 95 - 109 03/10/2013 Normal [facility] CHEMISTRY BUN 19 7 - 22 03/10/2013 Normal [facility] CHEMISTRY Glucose Lvl 523 70 - 99 03/10/2013 CRIT <sup>4</sup>Result Comment: Critical Res ult(s) called to louis fuentes at 03/09/2013 23:55 by/marilynn. Read back OK.
<sup>5</sup>Interpretive Data: Adult reference range values reflect the clinical guidelines
of the [place] [employer]. [facility] URINALYSIS UA Color Ltyellow 03/10/2013 NA [facility] URINALYSIS UA Urobilinogen 0.1 - 1.0 03/10/2013 NA [facility] URINALYSIS UA Ketones 20 mg /dL *ABN* (03/09/2013 23:04:00) Negati ve 03/10/2013 ABN [facility] URINALYSIS UA Protein Negat sylvie mg/dL (03/09/2013 23:04:00) Negati ve 03/10/2013 Normal [facility] URINALYSIS UA Glucose 500 m g/dL *ABN* (03/09/2013 23:04:00) Negati ve 03/10/2013 ABN [facility] URINALYSIS UA [place] Yeast Occas ional /HPF *ABN* (03/09/2013 23:04:00) None S een 03/10/2013 ABN [facility] URINALYSIS UA Bili Negat sylvie *NA* (03/09/2013 23:04:00) Negati ve 03/10/2013 NA [facility] URINALYSIS UA Blood Negat sylvie (03/09/2013 23:04:00) Negati ve 03/10/2013 Normal [facility] URINALYSIS UA Nitrite Negat sylvie (03/09/2013 23:04:00) Negati ve 03/10/2013 Normal [facility] URINALYSIS UA Leuk Est Negat sylvie (03/09/2013 23:04:00) Negati ve 03/10/2013 Normal [facility] URINALYSIS UA Sq Epi Occas ional /LPF *NA* (03/09/2013 23:04:00) Few 03/10/2013 NA [facility] URINALYSIS UA pH 6.0 5.0 - 8.0 03/10/2013 Normal [facility] URINALYSIS UA Turbidity Clear (03/09/2013 23:04:00) Clear 03/10/2013 Normal [facility] URINALYSIS UA Spec Grav 1.028 <=1.030 03/10/2013 Normal [facility] URINALYSIS UA Bacteria Occas ional /HPF *NA* (03/09/2013 23:04:00) None S een 03/10/2013 NA [facility] URINALYSIS UA RBC 1 0 - 2 03/10/2013 Normal [facility] URINALYSIS UA Mucus Few / LPF *NA* (03/09/2013 23:04:00) None S een 03/10/2013 NA [facility] URINALYSIS UA WBC <1 0 - 5 03/10/2013 Normal [facility] Pathology Reports No Data Provided for This Section Diagnostic Reports Report Value Date Source Breast Mammo Diag [place] incl CAD MA BILATERAL DIGITAL DIAGNOSTIC MAMMOGRAM WITH CAD: 05/17/2017 CLINICAL: /Abnormal Mammogram. Current study was evaluated with a Computer Aided Detection (CAD) system. Comparison is made to exams dated: 10/03/2013 mammogram - [facility], 02/06/2013 mammogram - [facility], 08/09/2010 mammogram, 09/08/2008 mammogram, and 09/05/2007 mammogram - [facility]. There are scattered fibroglandular densities in both breasts. There are benign appearing calcifications in both breasts that are stable. No significant masses, calcifications, or other findings are seen in either breast. There has been no significant interval change. IMPRESSION: BENIGN There is no mammographic evidence of malignancy. A 1 year screening mammogram is recommended. Professional services are provided by the [facility]. Charlie Jarrell M.D., cm/:05/17/2017 15:03:53 Drug Abuse Worker(s): Tracee Wills RT(R)(M), [facility] This exam was dictated and interpreted by [id number] for OBINNA Ann. letter sent: BI-RADS 1/2 Mammogram BI-RADS: 2 Benign 05/17/2017 JANE Ann Digital Mammo Screening [place] AMENDMENT: 10/10/2013 Jennifer Sahu D.O. Comparison is made to outside study dated 02/06/2013. No change to initial mammographic interpretation. Recommend additional diagnostic mammogram with possible ultrasound. Amended BI-RADS: 0 Indeterminate letter sent: Additional Imaging - DIGITAL MAMMO SCREENING [place] BILATERAL DIGITAL SCREENING MAMMOGRAM WITH CAD: 10/03/2013 CLINICAL: Routine. Current study was evaluated with a Computer Aided Detection (CAD) system. Comparison is made to exams dated: 09/05/2007 mammogram, 09/08/2008 mammogram and 08/09/2010 mammogram - [facility]. The tissue of both breasts is heterogeneously [...] unsuccessful. Dr. Jennifer Sahu D.O. ht/penrad:10/03/2013 16:52:47 Drug Abuse Worker: Charlene Martinez RT(R)(M), [facility] This exam was dictated and interpreted by [id number] for OBINNA Bai. letter sent: Additional Imaging Mammogram BI-RADS: 0 Indeterminate 10/03/2013 OBINNA Ann Consultation Notes No Data Provided for This Section Discharge Summaries No Data Provided for This Section History and Physicals No Data Provided for This Section Vital Signs No Data Provided for This Section Encounters Location Location Details Encounter Type Encounter Number Reason For Visit Attending Provider ADM Date DC Date Status Source [facility] Emergency [id number] FALL/HBS [facility]IN 03/09/2013 03/10/2013 [place] [facility] [id number] _[id number] Baljeet Escobar 10/03/2013 10/04/2013 [facility] [id number] 04 Jose Alfredo Shawn 05/17/2017 05/18/2017 [facility] Procedures Procedure Code Date Perfomer Comments Source Cholecystectomy [id number] [facility] Cholecystectomy [id number] [facility] Assessment and Plan No Data Provided for This Section Plan of Care No Data Provided for This Section Social History Social History Date Source No data available for this section 05/18/2017 [facility] Family History No Data Provided for This Section Advance Directives No Data Provided for This Section Functional Status No Data Provided for This Section
[2019-12-19 11:05] LABS: BASOPHILS # (AUTO) 0.1 (0.0-0.1); BASOPHILS % 1.6 % (0.0-1.0); EOSINOPHILS # (AUTO) 0.3 (0.0-0.4); EOSINOPHILS % 6.3 % (0.0-6.0); HEMATOCRIT 39.5 % (34.2-44.1); HEMOGLOBIN 12.4 g/dL (12.0-16.0); LYMPHOCYTES # (AUTO) 1.6 (1.0-3.2); LYMPHOCYTES % 31.3 % (18.0-39.1); MEAN CORPUSCULAR HEMOGLOBIN 29.7 pg (28-32); MEAN CORPUSCULAR HGB CONC 31.4 g/dL (31-35); MEAN CORPUSCULAR VOLUME 94.5 fL (81-99); MONOCYTES # (AUTO) 0.3 (0.2-0.8); MONOCYTES % 6.3 % (4.4-11.3); NEUTROPHILS # (AUTO) 2.7 (2.1-6.9); NEUTROPHILS % 54.1 % (38.7-80.0); PLATELET COUNT 183 x10e3/uL (140-360); RED BLOOD COUNT 4.18 x10e6/uL (3.6-5.1); RED CELL DISTRIBUTION WIDTH 13.3 % (11.7-14.4)
[2019-12-19 11:21] LABS: ANION GAP 15.4 mmol/L (8-16); CARBON DIOXIDE 23 mmol/L (22-29); CHLORIDE 106 mmol/L (98-107); POTASSIUM 4.4 mmol/L (3.5-5.1); SODIUM 140 mmol/L (136-145)
[2019-12-19 11:32] LABS: ALANINE AMINOTRANSFERASE 39 IU/L (0-55); BLOOD UREA NITROGEN 14 mg/dL (7-26); BUN/CREATININE RATIO 19 (6-25); CREATININE, SERUM 0.72 mg/dL (0.57-1.11); EST GLOMERULAR FILTRATION RATE > 60 ML/MIN (60-)
[2019-12-19 11:33] LABS: ALBUMIN 3.7 g/dL (3.5-5.0); ALKALINE PHOSPHATASE 201 IU/L (40-150); CREATINE KINASE 65 IU/L (29-168)
--- NOTE | 2019-12-19 11:36 | Diagnostic Imaging Report ---
CT BRAIN WO HISTORY: Syncope COMPARISON: Report from head CT dated 11/02/2016 TECHNIQUE: Noncontrast axial scans were obtained from skull base to the vertex. Coronal and sagittal reconstructions obtained from the axial data. One or more of the following dose reduction techniques were used: Automated exposure control, adjustment of the mA and/or kV according to patient size, and/or utilization of iterative reconstruction technique. DISCUSSION: Scalp/Skull: Unremarkable. Brain sulci: Mildly prominent. Ventricles: Mild compensatory dilatation. Extra-axial spaces: No masses or fluid collections. Carotid siphon and vertebral artery calcifications. Parenchyma: Incidental small pineal cyst. Otherwise, no mass, hemorrhage, or large vascular territory acute infarct. Dural sinuses: No abnormal densities. Sellar/Suprasellar region: Intact. Skull base: Intact. Incidental findings: Bilateral ocular lens replacement. IMPRESSION: 1. No acute intracranial abnormalities. 2. Mild generalized cerebral volume loss. Signed by: Dr. Adrien Ramon M.D. on 12/19/2019 11:33 AM
[2019-12-19 11:38] LABS: GLUCOSE 122 mg/dL (74-118)
--- NOTE | 2019-12-19 12:14 | Emergency Department Note ---
History of Present Illnes History of Present Illness Chief Complaint: General Medicine Complaints History of Present Illness This is a 59 year old female arrived to the ED with complaints of fall, states she was dizzy prior to fall and doesn't recall the event. Pt admits to several falls with LOC lately. Chief Complaint Comment PASSED OUT, TRIP AND FALL ON WAY TO GET A MAMOGRAM. AAOX4. AMBULATORY. NAD. NO CP NO SOB. 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 Historian: Patient Arrival Mode: Car Inspector Filter Tip Required: No Onset (how long ago): hour(s) Onset quality: gradual Duration (how long): week(s) Progression: waxing and waning Relieving factors: none Exacerbating factors: none Associated symptoms: denies other symptoms Past Medical/Family History Physician Review I have reviewed the patient's past medical and family history. Any updates have been documented here. Past Medical History Recent Fever: No Clinical Suspicion of Infectio: No New/Unexplained Change in Ment: No Past Medical History: Diabetes, Depression, Other Mental Illness, GERD, Osteoarthritis Other Medical History: Osterporosis Folic Acid Deficiency Bipolor Chrohn's Disease TYPE ONE DM Past Surgical History: Cholecysctectomy, Hip Replacement Other Surgery: LEFT HIP Social History Smoking Cessation: Never Smoker Counseling Performed: No Alcohol Use: None Any Illegal Drug Use: No TB Exposure/Symptoms: No Physically hurt or threatened: No Other Last Tetanus: UNKNOWN Any Pre-Existing Lines (PICC,: No Is patient up to date on immun: No Last Flu: NO Last Pneumovax: NO Review of Systems Review of Systems Constitutional: no symptoms EENTM: no symptoms Cardiovascular: no symptoms Respiratory: no symptoms Gastrointestinal: no symptoms Genitourinary: no symptoms Musculoskeletal: no symptoms Neurological: as per HPI, weakness (dizziness), other (LOC ) Psychological: no symptoms Endocrine: no symptoms Hematological/Lymphatic: no symptoms Review of other systems All other systems reviewed and negative. Physical Exam Related Data Allergies: Coded Allergies: morphine (Verified Allergy, Severe, Swelling, 11/02/16) Uncoded Allergies: PENCILLIN (Allergy, Severe, Swelling, 12/04/14) SULFA (Allergy, Severe, Swelling, 12/04/14) Triage Vital Signs Vital Signs Date Time Temp Pulse Resp B/P (MAP) Pulse Ox O2 Delivery O2 Flow Rate FiO2 5/21/20 09:45 98.3 95 20 183/65 100 Vital signs reviewed: Yes Physical Exam CONSTITUTIONAL Constitutional: well-developed, well-nourished HENT HENT: normocephalic, atraumatic, oropharynx clear/moist, nose normal HENT L/R: left ext ear normal, right ext ear normal EYES Eyes: PERRL, conjunctivae normal NECK Neck: ROM normal PULMONARY Pulmonary: effort normal, breath sounds normal CARDIOVASCULAR Cardiovascular: regular rhythm, heart sounds normal, capillary refill normal, normal rate GASTROINTESTINAL Abdominal: soft, nontender, bowel sounds normal GENITOURINARY Genitourinary: exam deferred SKIN Skin: warm, dry MUSCULOSKELETAL Musculoskeletal: ROM normal NEUROLOGICAL Neurological: alert, oriented x 3, no gross motor or sensory deficits PSYCHOLOGICAL Psychological: mood/affect normal, judgement normal Results Laboratory Result Diagram: 12/19/19 1100 12/19/19 1100 Laboratory Laboratory Tests Test 12/19/19 11:00 12/19/19 10:55 White Blood Count 4.96 x10e3/uL (4.8-10.8) Red Blood Count 4.18 x10e6/uL (3.6-5.1) Hemoglobin 12.4 g/dL (12.0-16.0) Hematocrit 39.5 % (34.2-44.1) Mean Corpuscular Volume 94.5 fL (81-99) Mean Corpuscular Hemoglobin 29.7 pg (28-32) Mean Corpuscular Hemoglobin Concent 31.4 g/dL (31-35) Red Cell Distribution Width 13.3 % (11.7-14.4) Platelet Count 183 x10e3/uL (140-360) Neutrophils (%) (Auto) 54.1 % (38.7-80.0) Lymphocytes (%) (Auto) 31.3 % (18.0-39.1) Monocytes (%) (Auto) 6.3 % (4.4-11.3) Eosinophils (%) (Auto) 6.3 % (0.0-6.0) Basophils (%) (Auto) 1.6 % (0.0-1.0) Neutrophils # (Auto) 2.7 (2.1-6.9) Lymphocytes # (Auto) 1.6 (1.0-3.2) Monocytes # (Auto) 0.3 (0.2-0.8) Eosinophils # (Auto) 0.3 (0.0-0.4) Basophils # (Auto) 0.1 (0.0-0.1) Absolute Immature Granulocyte (auto 0.02 x10e3/uL (0-0.1) Sodium Level 140 mmol/L (136-145) Potassium Level 4.4 mmol/L (3.5-5.1) Chloride Level 106 mmol/L (98-107) Carbon Dioxide Level 23 mmol/L (22-29) Anion Gap 15.4 mmol/L (8-16) Blood Urea Nitrogen 14 mg/dL (7-26) Creatinine 0.72 mg/dL (0.57-1.11) Estimat Glomerular Filtration Rate > 60 ML/MIN (60-) BUN/Creatinine Ratio 19 (6-25) Glucose Level 122 mg/dL (74-118) Calcium Level 9.0 mg/dL (8.4-10.2) Total Bilirubin 0.3 mg/dL (0.2-1.2) Aspartate Amino Transf (AST/SGOT) 31 IU/L (5-34) Alanine Aminotransferase (ALT/SGPT) 39 IU/L (0-55) Alkaline Phosphatase 201 IU/L (40-150) Creatine Kinase 65 IU/L (29-168) Creatine Kinase MB 2.50 ng/mL (0-5.0) Troponin I 0.003 ng/mL (0-0.300) Total Protein 7.4 g/dL (6.5-8.1) Albumin 3.7 g/dL (3.5-5.0) Globulin 3.7 g/dL (2.3-3.5) Albumin/Globulin Ratio 1.0 (0.8-2.0) Bedside Glucose 127 mg/dL (70-120) Lab results reviewed: Yes Imaging Imaging results reviewed: Yes Impressions IMPRESSION: 1. No acute intracranial abnormalities. 2. Mild generalized cerebral volume loss. Diagnostics Tests Diagnostic test(s) reviewed: Yes Procedures 12 Lead ECG Interpretation Inspector Filter Tip: Interpreted by ED physician Prior PATIENT CARE ASSISTANT tracings: reviewed Rhythm: sinus rhythm Rate: normal QRS axis: normal ST segments normal: Yes T waves normal: Yes Clinical Impression: normal ECG Critical Care Time Subsequent provider I assumed direction of critical care for this patient from another provider of my specialty. Assessment & Plan Assessment & Plan Final Impression: (1) Syncope (2) Contusion of right knee Assessment & Plan cbc, cmp, cardiac markers, EKG CT Brain Admission to [facility] for monitoring Last Vital Signs Date Time Temp Pulse Resp B/P (MAP) Pulse Ox O2 Delivery O2 Flow Rate FiO2 12/19/19 10:59 89 14 174/98 99 12/19/19 09:45 98.3 Home Meds Reported Medications [Tujeo] 34 No Conflict Check, U SQ BID 02/15/19 Oxcarbazepine (TRILEPTAL) 300 Mg Tablet, 300 MG PO HS 02/15/19 Pravastatin Sodium (PRAVASTATIN SODIUM) 20 Mg Tablet, 20 MG PO HS 02/15/19 Glucagon,Human Recombinant (GLUCAGON EMERGENCY KIT) 1 Mg Kit, SQ PRN 02/15/19 Trazodone Hcl (TRAZODONE HCL) 100 Mg Tablet, 100 MG PO PRN 02/15/19 Insulin Lispro (HUMALOG) 100 Unit/1 Ml Cartridge, U SQ TID SLIDING SCALE 11/02/17 [Tripaline] No Conflict Check, 300 MG PO HS 11/02/17 Furosemide (LASIX) 40 Mg Tablet, 80 MG PO DAILY, #30 TAB 11/02/17 Clonidine Hcl (CLONIDINE HCL) 0.1 Mg Tablet, 1 TAB PO BID, #60 TAB 11/02/17 Lactobac Cmb #3/Fos/Pantethine (PROBIOTIC & ACIDOPHILUS CAP) 1 Each Capsule, 1 PO DAILY 11/02/17 Pantoprazole Sodium (PANTOPRAZOLE SODIUM) 20 Mg Tablet.dr, 40 MG PO DAILY 12/04/14 Levothyroxine Sodium (LEVOTHYROXINE SODIUM) 112 Mcg Tablet, 112 MCG PO DAILY, #30 TAB 12/04/14 Mesalamine (APRISO) 0.375 Gm Cap.er.24h, 0.375 GM PO BID, #30 CAP 12/04/14 Risedronate Sodium (ACTONEL) 5 Mg Tablet, 5 MG PO HS Unknown dose 12/04/14 MONIKA HOLLIS, December 19, 2019 12:13
--- OUTSIDE RECORDS SUMMARY | 2019-12-19 12:14 | XMS REPORT | Continuity of Care Document ---
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 Name Role Phone [employer] Unavailable Un available Problems Problem Status Onset Date Classification Date Reported Comments Source R92.8 - OTH ABN AND INCONCLUSIVE FINDI Active 04/28/2017 [facility] 793.81 - MAMMOGRAPHIC [place] Active 10/14/2013 [facility] FALL/HBS Active 03/09/2013 [facility] Bipolar (qualifier value) Reso lved Problem [facility] Chronic obstructive lung disease (disorder) Resolved Problem 05/20/2017 [facility] Crohn's disease (disorder) Res olved Problem [facility] Diabetes mellitus (disorder) R esolved Problem [facility] [place] Bipolar Resolved Problem 03/12/2013 [facility] COPD Resolved Problem 03/12/2013 [facility] Crohns disease Resolved Problem 03/12/2013 [facility] DM - Diabetes mellitus Resolved Problem 03/12/2013 [facility] Medications Medication Details Route Status Patient Instructions Ordering Provider Order Date Source Insulin regular 10 unit, Route : IVP, ONCE, kg, Priority: STAT, Start date: 03/10/13 1:14:00, Stop date: 03/10/13 1:14:00 IVP No Longer Active [facility] 03/10/2013 [facility] ondansetron 4 mg, Route: PO, D rug form: TABDIS, ONCE, kg, Priority: STAT, Start date: 03/09/13 23:58:00, Stop date: 03/09/13 23:58:00 PO No Longer Active [facility] 03/10 [facility] Insulin regular 10 unit, Route : IVP, ONCE, kg, Priority: STAT, Start date: 03/09/13 23:04:00, Stop date: 03/09/13 23:04:00 IVP No Longer Active [facility] 03/10/2013 [facility] Sodium Chloride 0.9% (Bolus) IV 500 mL 500 mL, Rate: 500 ml/hr, Infuse over: 1 hr, Route: IV, Total Volume: 500, Priority: STAT, Start date: 03/09/13 23:03:00, Duration: 1 doses or times, Stop date: 03/10/13 0:02:00, Bolus DoseBolus Dose IV No Longer Active Alin 03/10/2013 [facility] Allergies, Adverse Reactions, Alerts Substance Category Reaction Severity Reaction type Status Date Reported Comments Source morphine Assertion Drug allergy Active [facility] penicillins Assertion Propensity to adverse reacti ons to substance Active [facility] sulfa drugs Assertion Propensity to adverse reacti ons to substance Active [facility] Immunizations No Data Provided for This Section Results Order Name Results Value Reference Range Date Interpretation Comments Source BEDSIDE GLUCOSE TESTING Gluc POC Lif scn 305 70 - 99 03/10/2013 [place] <sup>1</sup>Interpretive Data: Upper Reportable Limit: 200 mg/dL. [facility] BEDSIDE GLUCOSE TESTING Comment1 Notify RN/ 03/10/2013 NA [facility] BEDSIDE GLUCOSE TESTING Comment1 Notify RN/ 03/10/2013 NA [facility] BEDSIDE GLUCOSE TESTING Gluc POC Lif scn >400 70 - 99 03/10/2013 CRIT <sup>2</sup>Interpretive Data: Upper Reportable Limit: 200 mg/dL. [facility] CHEMISTRY eGFR 85 03/10/2013 NA <sup>3</sup>Result [...] should be multiplied by the estimated BMI. [facility] CHEMISTRY Sodium Lvl 139 135 - 145 03/10/2013 Normal [facility] CHEMISTRY Creatinine Lvl 0.8 0.5 - 1.4 03/10/2013 Normal [facility] CHEMISTRY Calcium Lvl 7.8 8.5 - 10.5 03/10/2013 LOW [facility] CHEMISTRY AGAP 16.1 10.0 - 20.0 03/10/2013 Normal [facility] CHEMISTRY CO2 25 24 - 32 03/10/2013 Normal [facility] CHEMISTRY Potassium Lvl 5.1 3.5 - 5.1 03/10/2013 Normal [facility] CHEMISTRY Chloride Lvl 103 95 - 109 03/10/2013 Normal [facility] CHEMISTRY BUN 19 7 - 22 03/10/2013 Normal [facility] CHEMISTRY Glucose Lvl 523 70 - 99 03/10/2013 CRIT <sup>4</sup>Result Comment: Critical Res ult(s) called to louis fuentes at 03/09/2013 23:55 by/marilynn. Read back OK.
<sup>5</sup>Interpretive Data: Adult reference range values reflect the clinical guidelines
of the [place] [employer]. [facility] URINALYSIS UA Color Ltyellow 03/10/2013 NA [facility] URINALYSIS UA Urobilinogen 0.1 - 1.0 03/10/2013 NA [facility] URINALYSIS UA Ketones 20 mg /dL *ABN* (03/09/2013 23:04:00) Negati ve 03/10/2013 ABN [facility] URINALYSIS UA Protein Negat sylvie mg/dL (03/09/2013 23:04:00) Negati ve 03/10/2013 Normal [facility] URINALYSIS UA Glucose 500 m g/dL *ABN* (03/09/2013 23:04:00) Negati ve 03/10/2013 ABN [facility] URINALYSIS UA [place] Yeast Occas ional /HPF *ABN* (03/09/2013 23:04:00) None S een 03/10/2013 ABN [facility] URINALYSIS UA Bili Negat sylvie *NA* (03/09/2013 23:04:00) Negati ve 03/10/2013 NA [facility] URINALYSIS UA Blood Negat sylvie (03/09/2013 23:04:00) Negati ve 03/10/2013 Normal [facility] URINALYSIS UA Nitrite Negat sylvie (03/09/2013 23:04:00) Negati ve 03/10/2013 Normal [facility] URINALYSIS UA Leuk Est Negat sylvie (03/09/2013 23:04:00) Negati ve 03/10/2013 Normal [facility] URINALYSIS UA Sq Epi Occas ional /LPF *NA* (03/09/2013 23:04:00) Few 03/10/2013 NA [facility] URINALYSIS UA pH 6.0 5.0 - 8.0 03/10/2013 Normal [facility] URINALYSIS UA Turbidity Clear (03/09/2013 23:04:00) Clear 03/10/2013 Normal [facility] URINALYSIS UA Spec Grav 1.028 <=1.030 03/10/2013 Normal [facility] URINALYSIS UA Bacteria Occas ional /HPF *NA* (03/09/2013 23:04:00) None S een 03/10/2013 NA [facility] URINALYSIS UA RBC 1 0 - 2 03/10/2013 Normal [facility] URINALYSIS UA Mucus Few / LPF *NA* (03/09/2013 23:04:00) None S een 03/10/2013 NA [facility] URINALYSIS UA WBC <1 0 - 5 03/10/2013 Normal [facility] Pathology Reports No Data Provided for This Section Diagnostic Reports Report Value Date Source Breast Mammo Diag PERICO incl CAD MA BILATERAL DIGITAL DIAGNOSTIC MAMMOGRAM WITH CAD: 05/17/2017 CLINICAL: /Abnormal Mammogram. Current study was evaluated with a Computer Aided Detection (CAD) system. Comparison is made to exams dated: 10/03/2013 mammogram - [facility], 02/06/2013 mammogram - [facility], 08/09/2010 mammogram, 09/08/2008 mammogram, and 09/05/2007 mammogram - [facility]. There are scattered fibroglandular densities in both [...] Diagnostic Imaging. Charlie Jarrell M.D., cm/:05/17/2017 15:03:53 District Fire Management Officer(s): Tracee Wills RT(R)(M), [facility] This exam was dictated and interpreted by [id number] for OBINNA Ann. letter sent: BI-RADS 1/2 [...] mammogram, 09/08/2008 mammogram and 08/09/2010 mammogram - [facility]. The tissue of both breasts is heterogeneously [...] SUMMARY: The patient will be contacted by [facility] to return for further imaging. Attempts to contact the patient should also be made by the referring physician in the event that we are unsuccessful. Dr. Jennifer Sahu D.O. ht/penrad:10/03/2013 16:52:47 District Fire Management Officer: Charlene Martinez RT(R)(M), [facility] This exam was dictated and interpreted by [id number] for OBINNA Bai. letter sent: Additional Imaging [...] Provider ADM Date DC Date Status Source [facility] Emergency [id number] FALL/HBS GM ALIN 03/09/2013 03/10/2013 Active [facility] [id number] _MAPID:[id number] Baljeet Escobar 10/03/2013 10/04/2013 [facility] [id number] Jose Alfredo Shawn 05/17/2017 05/18/2017 [facility] Procedures Procedure Code Date Perfomer Comments Source Cholecystectomy [id number] [facility] Cholecystectomy [id number] [facility] Assessment and Plan No Data Provided for This Section Plan of Care No Data Provided for This Section Social History Social History Date Source No data available for this section 05/18/2017 MH [facility] Family History No Data Provided for This Section Advance Directives No Data Provided for This Section Functional Status No Data Provided for This Section
--- OUTSIDE RECORDS SUMMARY | 2019-12-19 12:14 | XMS REPORT ---
Author Author [facility] t Organization [facility] Address [address] [place] [address] [address] [place] [address] Phone Unavailable Care Team Providers Care Sawdust Drier Name Role Phone Brian VALDEZ MD PCP Brian HOLLIS Attphys Unavailable Brian VALDEZ Attphys Unavailable JOE SALEEM Attphys Unavailable Brian Valdez Attphys Payers Payer Name Policy Type Policy Number Effective Date Expiration Date [facility] [id number] 2017 00:00 :00 [facility] [id number] 2017 00:00:00 [facility] Problems Condition Name Condition Details Condition Category Status Onset Date Resolution Date Last Treatment Date Treating Clinician Comments Source R92.8 - OTH ABN AND INCONCLUSIVE FINDI R92.8 - OTH ABN AND INCONCLUSIVE FINDI Active 04/28/2017 [facility] [place] Diagnosis Active 2017-04-28 00:01:00 2017-05-17 13:24:00 M H [facility] [place] 793.81 - MAMMOGRAPHIC IN 793. 81 - MAMMOGRAPHIC IN Active 10/14/2013 [facility] [place] Diagnosis Active 2013-10-14 00:01:00 2014-03-22 22:11:00 [facility] [place] FALL/HBS FALL /HBS Active 03/09/2013 [facility] Active 2013-03-09 00:00:00 2013-04-04 14:57:00 [facility] Contusion of rib on right side Contusion of rib on right side Problem Active [facility] Contusion of right knee Contusion of right knee Problem Active [facility] Bipolar (qualifier value) Bipo lar (qualifier value) Resolved Problem 05/20/2017 [facility] [place] Problem Resolved 2017-05-20 00:51:59 [facility] [place] Chronic obstructive lung disease (disorder) Chronic obstructive lung disease (disorder) Resolved Problem 05/20/2017 [facility] [place] Problem Resolved 2017-05-20 00:51:59 [facility] [place] Crohn's disease (disorder) 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) 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 Problem 05/20/2017 [facility] [place] Problem Resolved 2017-05-20 00:51:59 [facility] [place] Diabetes mellitus (disorder) D iabetes mellitus (disorder) Resolved Problem 05/20/2017 [facility] [place] Problem Resolved 2017-05-20 00:51:59 [facility] [place] Bipolar Bipo lar Resolved Problem 03/12/2013 [facility] Problem Resolved 2013-03-12 20:29:14 [facility] COPD COPD Resolved Problem 03/12/2013 [facility] Problem Resolved 2013-03-12 20:29:14 [facility] Crohns disease Croh ns disease Resolved Problem 03/12/2013 [facility] Problem Resolved 2013-03-12 20:29:14 [facility] DM - Diabetes mellitus DM - Diabetes mellitus Resolved Problem 03/12/2013 [facility] Problem Resolved 2013-03-12 20:29: 14 [facility] Allergies, Adverse Reactions, Alerts Allergy Name Allergy Type Status Severity Reaction(s) Onset Date Inacti ve Date Treating Clinician Comments Source PENCILLIN Allergy to Substance Active Severe Swelling 2014-12-04 00:00:00 [facility] SULFA Allergy to Substance Active Severe Swelling 2014-12-04 00:00:00 [facility] morphine morphine Active [facility] penicillins penicillins Active [facility] sulfa drugs sulfa drugs Active [facility] Social History Social Habit Start Date Stop Date Quantity Comments Source Social History 2017-05-18 04:59:00 2017-05-18 04:59:00 [facility] Medications Ordered Medication Name Filled Medication Name Start Date Stop Da te Current Medication? Ordering Clinician Indication Dosage Frequency Signature (SIG) Comments Components Source Insulin regular 2013-03-10 06:14:00 No Rod R Alin 10 unit, Route: IVP, ONCE, kg, Priority: STAT, Start date: 03/10/13 1:14:00, Stop date: 03/10/13 1:14:00 [facility] ondansetron 2013-03-10 04:58:00 No Rod R Alin 4 mg, Route: PO, Drug form: TABDIS, ONCE, kg, Priority: STAT, Start date: 03/09/13 23:58:00, Stop date: 03/09/13 23:58:00 [facility] Insulin regular 2013-03-10 04:04:00 No Rod R Alin 10 unit, Route: IVP, ONCE, kg, Priority: STAT, Start date: 03/09/13 23:04:00, Stop date: 03/09/13 23:04:00 [facility] Sodium Chloride 0.9% (Bolus) IV 500 mL 2013-03-10 04:03:00 No Rod R Alin 500 mL, Rate: 500 ml /hr, Infuse over: 1 hr, Route: IV, Total Volume: 500, Priority: STAT, Start date: 03/09/13 23:03:00, Duration: 1 doses or times, Stop date: 03/10/13 0:02:00, Bolus DoseBolus Dose [facility] Acidophilus/B.bifidum/B.longum (Rezyst Im Tablet Chew) 150 Mg Tab.chew Acidophilus/B.bifidum/B.longum (Rezyst Im Tablet Chew) 150 Mg Tab.chew Yes [facility] Clonidine Hcl 0.1 Mg Tablet Clonidine Hcl 0.1 Mg Tablet Yes 1 Twice A Day [facility] Divalproex Sodium 500 Mg Tablet.dr Divalproex Sodium 500 Mg Tablet. Yes 500 Three Times A Day [facility] Doxycycline Hyclate 100 Mg Capsule Doxycycline Hyclate 100 Mg Capsule Yes 100 Every 12 Hours [facility] Doxycycline Hyclate 100 Mg Capsule Doxycycline Hyclate 100 Mg Capsule Yes 100 Every 12 Hours [facility] Doxycycline Hyclate 100 Mg Capsule Doxycycline Hyclate 100 Mg Capsule Yes 100 Every 12 Hours [facility] Furosemide (Lasix) 40 Mg Tablet Furosemide (Lasix) 40 Mg Tablet Yes 40 Daily [facility] Insulin Aspart (Novolog) 100 Unit/1 Ml Cartridge Insul in Aspart (Novolog) 100 Unit/1 Ml Cartridge Yes [facility] Insulin Glargine (Lantus) 100 Units/Ml Ml Insulin Glar gine (Lantus) 100 Units/Ml Ml Yes [facility] Insulin Lispro (Humalog) 100 Unit/1 Ml Cartridge Insul in Lispro (Humalog) 100 Unit/1 Ml Cartridge Yes 4 [facility] Lactobac Cmb #3/Fos/Pantethine (Probiotic & Acidophilu s Cap) 1 Each Capsule Lactobac Cmb #3/Fos/Pantethine (Probiotic & Acidophilus Cap) 1 Each Capsule Yes 1 Daily [facility] Levothyroxine Sodium 112 Mcg Tablet Levothyroxine Sodium 112 Mcg Tabl et Yes 112 Daily [facility] Mesalamine (Apriso) 0.375 Gm Cap.er.24h Mesalamine (Apriso) 0.375 Gm Cap.er.24h Yes .375 Daily [facility] Pantoprazole Sodium 20 Mg Tablet. Pantoprazole Sodium 20 Mg Tablet. Yes 20 Daily [facility] Risedronate Sodium (Actonel) 5 Mg Tablet Risedronate S odium (Actonel) 5 Mg Tablet Yes 5 Daily [facility] Torigel Torigel Yes 32 Am [facility] Vinod Torigel Yes [address] [facility] Tramadol Hcl (Ultram) 50 Mg Tablet Tramadol Hcl (Ultram) 50 Mg Tablet Yes 50 Every 8 Hours as needed for Pain [facility] Tripaline Tripaline Yes 450 Bedtime [facility] Trippaline Trippaline Yes 150 Am [facility] Folic Acid 1 Mg Tablet, 1 Mg Oral Folic Acid 1 Mg Tablet, 1 Mg O ral 2015-12-26 00:00:00 No 1 Daily [facility] Procedures Procedure Date / Time Performed Performing Clinician Sour e MRI lower extremity w/o dye 2017-10-20 00:00:00 [facility] Computed tomography, lower extremity; without contrast material 2017-10-20 00:00:00 [facility] Cholecystectomy JANE Ann Cholecystectomy [facility] Encounters Start Date/Time End Date/Time Encounter Type Admission Type Attendi [facility] Facility Care Department Encounter ID Source 2017-11-01 21:00:00 2017-11-05 18:15:00 Discharged Inpatient [facility] [id number] [facility] 2017-10-20 12:48:00 2017-10-20 12:48:00 Registered Clinic DENNIS GUPTA [facility] [id number] [facility] 2017-05-17 18:12:00 2017-05-18 04:59:00 Outpt Diag Services [facility] [place] [id number] [facility] [place] 2017-05-17 13:12:00 2017-05-17 23:59:00 Outpatient Ronna Valdez [facility] [id number] 2017-04-18 14:43:00 2017-04-18 14:43:00 Registered Clinic DENNIS GUPTA [facility] [id number] [facility] 2017-03-15 14:06:00 2017-03-15 14:06:00 Registered Clinic DENNIS GUPTA [facility] [id number] [facility] 2013-10-03 16:50:00 2013-10-04 05:59:00 Out[facility] Di[facility] [place] [id number] JANE Ann 2013-10-03 10:50:00 2013-10-03 23:59:00 Outpatient Ronna Valdez [facility] [id number] 2013-03-09 22:18:00 2013-03-10 02:22:00 Emergency [facility] [id number] [facility] Results Test Description Test Time Test Comments Results Result Comments Source CT BRAIN WO 2019-12-19 11:24:00 [place] [address] Patient Name: MELVI DONG MR #: [id number] : 1960 Age/Sex: 59/F Req #: [id number] Adm Physician: Ordered by: MONIKA HOLLIS DO Report #: [id number] Location: ER Room/Bed: Procedure: [id number] CT/CT BRAIN WO Exam Date: 12/19/19 Exam Time: 1030 REPORT STATUS: Signed CT BRAIN WO HISTORY: Syncope COMPARISON: Report from head CT dated 11/02/2016 TECHNIQUE: Noncontrast axial scans were obtained from skull base to the vertex. Coronal and sagittal reconstructions obtained from the axial data. One or more of the following dose reduction techniques were used: Automated exposure control, adjustment of the mA and/or kV according to patient size, and/or utilization of iterative reconstruction technique. DISCUSSION: Scalp/Skull: Unremarkable. Brain sulci: Mildly prominent. Ventricles: Mild compensatory dilatation. Extra-axial spaces: No masses or fluid collections. Carotid siphon and vertebral artery calcifications. Parenchyma: Incidental small pineal cyst. Otherwise, no mass, hemorrhage, or large vascular territory acute infarct. Dural sinuses: No abnormal densities. Sellar/Suprasellar region: Intact. Skull base: Intact. Incidental findings: Bilateral ocular lens replacement. IMPRESSION: 1. No acute intracranial abnormalities. 2. Mild generalized cerebral volume loss. Signed by: Dr. Adrien Ramon M.D. on 12/19/2019 11:33 AM Dictated By: ADRIEN RAMON MD 1133 Transcribed By: RIGO on 12/19/19 1133 COPY TO: MONIKA HOLLIS DO LIVER 2019-12-19 10:09:00 [place] [address] Patient Name: MELVI DONG MR #: [id number] : 1960 Age/Sex: 59/F Req #: [id number] Adm Physician: Ordered by: DENNIS VALDEZ MD Report #: [id number] Location: Room/Bed: Procedure: [id number] US/US LIVER Exam Date: 12/19/19 Exam Time: [...] TO: DENNIS VALDEZ MD LIVER 2019-03-18 16:14:00 [place] [address] Patient Name: MELVI DONG MR #: [id number] : 1960 Age/Sex: 59/F Req #: [id number] Adm Physician: Ordered by: JOE SALEEM MD Report #: [id number] Location: Room/Bed: Procedure: [id number] US/US LIVER Exam Date: 03/18/19 Exam Time: [...] 4:15 PM Dictated By: ALEK MALHOTRA MD 1610 Transcribed By: RIGO on 03/18/19 1616 COPY TO: JOE SALEEM MD MRI ABDOMEN WOW 2018-01-17 11:58:00 [place] [address] Patient Name: MELVI DONG MR #: [id number] : 1960 Age/Sex: 58/F Req #: [id number] Adm Physician: Ordered by: DENNIS VALDEZ MD Report #: [id number] Location: MRI Room/Bed: Procedure: [id number] MRI/MRI ABDOMEN WOW Exam Date: Exam Time: [...] Test Item Bedside Glucose (test code = 34469-5) 92 70-120 Meter ID: [id number] [facility]com[facility] Level Lfidog9817-78-51 14:40:00* Test Item Value Reference Range Interpretation Comments Vancomycin Level Trough (test code = 4092-3) 8.0 5.0-10.0 [facility]-Reactive Tfjdsjp0786-99-20 10:52:00* Test Item Value Reference Range Interpretation Comments C-Reactive Protein (test code = 1988-5) 3.5 0.0-4.9 Performed at: [facility][NOTE 3] Lab[address] [id number] Director: Kamaljit Chapin MD, Phone: [phone] Specialty Hospitals of Americaodium Rvrvo2819-75-50 22:40:00* Test Item Value Reference Range Interpretation Comments Sodium Level (test code = 2951-2) 140 136-145 [facility] HospitalPotassium Woiaz2847-76-17 22:40:00* Test Item Value Reference Range Interpretation Comments Potassium Level (test code = 2823-3) 3.8 3.5-5.1 [facility] HospitalChloride Wapni1527-38-20 22:40:00* Test Item Value Reference Range Interpretation Comments Chloride Level (test code = 2075-0) 103 98-107 [facility] HospitalCarbon Dioxide Luqzi4820-48-46 22:40:00* Test Item Value Reference Range Interpretation Comments Carbon Dioxide Level (test code = 2028-9) 31 22-29 [facility] HospitalAnion Cnc8667-33-52 22:40:00* Test Item Value Reference Range Interpretation Comments Anion Gap (test code = 23291-8) 9.8 8-16 [facility] HospitalBlood Urea Gbohysob1894-12-72 22:40:00* Test Item Value Reference Range Interpretation Comments Blood Urea Nitrogen (test code = 3094-0) 13 7-26 [facility] HospitalCreatinine2018-04-04 22:40:00* Test Item Value Reference Range Interpretation Comments Creatinine (test code = 2160-0) 0.74 0.57-1.11 [facility] HospitalBUN/Creatinine Fmvbu2288-45-06 22:40:00* Test Item Value Reference Range Interpretation Comments BUN/Creatinine Ratio (test code = 3097-3) 18 6-25 [facility] HospitalEstimat Glomerular Filtration Rate 2017-11-01 22:40:00* Test Item Value Reference Range Interpretation Comments Estimat Glomerular Filtration Rate (test code = 40676-4) 60- >60 Ranges were taken from the National Kidney Disease Education Program and the [facility] Foundation literature.Reference ranges:60 or greater: Frovpp98-35 ( for 3 consecutive months): Chronic kidney disease 15 or less: Kidney failureHouston Methodist Sugar Land HospitalGlucose Xdsdx4211-74-02 22:40:00* Test Item Value Reference Range Interpretation Comments Glucose Level (test code = DFC0540) 77 74-118 [facility] HospitalCalcium Cwbqc2227-27-68 22:40:00* Test Item Value Reference Range Interpretation Comments Calcium Level (test code = 51545-0) 9.2 8.4-10.2 [facility] HospitalHemoglobin A1c Vjfkjos0368-72-28 22:34:00 * Test Item Value Reference Range Interpretation Comments Hemoglobin A1c Percent (test code = Hemoglobin A1c Percent) 8.7 4.0-7.0 [facility] HospitalWhite Blood Npbrx1013-79-47 22:25:00* Test Item Value Reference Range Interpretation Comments White Blood Count (test code = 6690-2) 5.42 4.8-10.8 [facility] HospitalRed Blood Krmnk1952-69-34 22:25:00* Test Item Value Reference Range Interpretation Comments Red Blood Count (test code = 789-8) 3.94 3.6-5.1 [facility] HospitalHemoglobin2018-04-04 22:25:00* Test Item Value Reference Range Interpretation Comments Hemoglobin (test code = 41057-8) 11.7 12.0-16.0 [facility] HospitalHematocrit2018-04-04 22:25:00* Test Item Value Reference Range Interpretation Comments Hematocrit (test code = 4544-3) 35.5 34.2-44.1 [facility] HospitalMean Corpuscular Uhbcbb2253-78-05 22:25:00* Test Item Value Reference Range Interpretation Comments Mean Corpuscular Volume (test code = 787-2) 90.1 81-99 [facility] HospitalMean Corpuscular Zizvmihnek8042-35-94 22:25:00* Test Item Value Reference Range Interpretation Comments Mean Corpuscular Hemoglobin (test code = 785-6) 29.7 28-32 [facility] Corpuscular Hemoglobin Concent 2017-11-01 22:25:00* Test Item Value Reference Range Interpretation Comments Mean Corpuscular Hemoglobin Concent (test code = 786-4) 33.0 31-35 [facility] HospitalRed Cell Distribution Zytas8710-87-02 22:25:00* Test Item Value Reference Range Interpretation Comments Red Cell Distribution Width (test code = 44210-9) 13.2 11.7 -14.4 [facility] HospitalPlatelet Ndzsh7115-78-30 22:25:00* Test Item Value Reference Range Interpretation Comments Platelet Count (test code = 777-3) 209 140-360 [facility] HospitalNeutrophils (%) (Auto)2017-11-01 22:25:00 * Test Item Value Reference Range Interpretation Comments Neutrophils (%) (Auto) (test code = 06110-5) 51.1 38.7-80.0 [facility] HospitalLymphocytes (%) (Auto)2017-11-01 22:25:00 * Test Item Value Reference Range Interpretation Comments Lymphocytes (%) (Auto) (test code = 736-9) 38.0 18.0-39.1 [facility] HospitalMonocytes (%) (Auto)2017-11-01 22:25:00* Test Item Value Reference Range Interpretation Comments Monocytes (%) (Auto) (test code = 5905-5) 5.9 4.4-11.3 [facility] HospitalEosinophils (%) (Auto)2017-11-01 22:25:00 * Test Item Value Reference Range Interpretation Comments Eosinophils (%) (Auto) (test code = 713-8) 4.2 0.0-6.0 [facility] HospitalBasophils (%) (Auto)2017-11-01 22:25:00* Test Item Value Reference Range Interpretation Comments Basophils (%) (Auto) (test code = 706-2) 0.6 0.0-1.0 [facility] HospitalIM GRANULOCYTES %2017-11-01 22:25:00* Test Item Value Reference Range Interpretation Comments IM GRANULOCYTES % (test code = IM GRANULOCYTES %) 0.2 0.0- 1.0 [facility] HospitalNeutrophils # (Auto)2017-11-01 22:25:00* Test Item Value Reference Range Interpretation Comments Neutrophils # (Auto) (test code = 751-8) 2.8 2.1-6.9 [facility] HospitalLymphocytes # (Auto)2017-11-01 22:25:00* Test Item Value Reference Range Interpretation Comments Lymphocytes # (Auto) (test code = 03297-0) 2.1 1.0-3.2 [facility] HospitalMonocytes # (Auto)2017-11-01 22:25:00* Test Item Value Reference Range Interpretation Comments Monocytes # (Auto) (test code = 742-7) 0.3 0.2-0.8 [facility] HospitalEosinophils # (Auto)2017-11-01 22:25:00* Test Item Value Reference Range Interpretation Comments Eosinophils # (Auto) (test code = 711-2) 0.2 0.0-0.4 [facility] HospitalBasophils # (Auto)2017-11-01 22:25:00* Test Item Value Reference Range Interpretation Comments Basophils # (Auto) (test code = 704-7) 0.0 0.0-0.1 [facility] HospitalAbsolute Immature Granulocyte (auto 2017-11-01 22:25:00* Test Item Value Reference Range Interpretation Comments Absolute Immature Granulocyte (auto (alex t code = Absolute Immature Granulocyte (auto) 0.01 0-0.1 [facility] CenterSIDE GLUCOSE SVUEKUL7072-26-64 06:55:07529[facility] GLUCOSE VNTHTUZ2881-99-44 05:43:00>400MH GhjzveqmpCPVXDBXXT3893-95-41 04:25:0085[facility] CenterZalkokagrIKPRHEDRP5430-67-87 04:25:00 139 FsalcbwkbRDJBHOKON9741-03-20 04:25:000.8MH GpxnwzkreVTDQOHSLU2243-28-39 04:25:007.8 DtvjvuiynAJNKBMEFG4382-95-54 04:25:0016.1MH SoutheastCHEMISTRY 2013-03-10 04:25:0025MH JnpgbuuaeAWEOQCUXI7591-03-59 04:25:005.1MM[facility] PEIEOEKJN6806-60-89 04:25:60108IW MnpgxmpiwXPOKBRUME0519-40-10 04:25:0019MH ToqmygewbCWVCHZTID9896-31-78 04:25:99220BL KgxitxmjxZVUZQHPCTZ5651-06-60 04:04:0020 mg/dL *ABN*(03/09/2013 23:04:00) [facility] CenterVlxbxlqvfROSHLTRGVQ5365-29-43 04:04:00Negative mg/dL (03/09/2013 23:04:00) [facility] HospitalYagwgpopgKRIOOPAROL5275-91-60 04:04:95061 mg/dL *ABN*(03/09/2013 23:04:00) [facility] CenterKmpzjqldqOYKLRWJUIL8011-86-42 04:04:00Occasional /HPF *ABN*(03/09/2013 23:04:00) [facility] CenterURIN[facility]IS 2013-03-10 04:04:00Negative *NA*(03/09/2013 23:04:00) [facility] CenterURINALYS 2013-03-10 04:04:00Negative (03/09/2013 23:04:00) [facility] 2013-03-10 04:04:00Negative (03/09/2013 23:04:00) [facility] 2013-03-10 04:04:00Negative (03/09/2013 23:04:00) [facility] 2013-03-10 04:04:00Occasional /LPF *NA*(03/09/2013 23:04:00) [facility] WVYXRADAGK5776-60-55 04:04:006.0[facility] HospitalWxatarsaoHGZGUJGFIH2196-07-74 04:04:00Clear (03/09/2013 23:04:00) [facility] HospitalWlfflkgapHHDWDPLTOV8778-83-16 04:04:001.028[facility] HospitalGvoghlsqiJIZXLDDEWR2268-07-23 04:04:00Occasional /HPF *NA*(03/09/2013 23:04:00) [facility] HospitalBuweedloeVXTPFRCOPW0372-49-58 04:04:001[facility] HospitalVequrgnhoVKLTXVLKGA8328-45-32 04:04:00Few /LPF *NA*(03/09/2013 23:04:00) [facility] HospitalWzztaqaxjMMYRUSYVSC2778-59-53 04:04:00<1MH [facility] [address] [place] [address] Patient Name: MELVI DONG Cruzito MR #: [id number] : 1960 Age/Sex: 57/F Req #: [id number] Adm Physician: Ordered by: DENNIS VALDEZ MD Report #: [id number] Location: Room/Bed: Procedure: US/US LIVER Exam Date: [...] 16 :32 Dictated By: LEROY HUFFMAN MD 163 Transcribed By: MATTIE on 12/29/17 1632 COPY TO: DENNIS VALDEZ MD CT KNEE LEFT WO [place] [address] Patient Name: MELVI DONG MR #: [id number] : 1960 Age/Sex: 57/F Req #: [id number] [facility] Physician: Ordered by: DENNIS VALDEZ MD Report #: [id number] Location: CARD Room/Bed: Procedure: [id number] CT/CT KNEE LEFT WO Exam Date: 10/20/17 [...] DENNIS VALDEZ MD [place] FOOT RIGHT [address], [place] [address] Patient Name: MELVI DONG MR #: [id number] : 1960 Age/Sex: 57/F Req #: [id number] Adm Physician: Ordered by: DENNIS VALDEZ MD Report #: [id number] Location: CARD Room/Bed: Procedure: [id number] MRI/MRI FOOT RIGHT WO E xam Date: [...] the fourth distal phalanx. Signed by: Dr. Thang Vyas D.O., M.M.M. on 10/20/2017 6:28 PM Dictated By: THANG VYAS DO 27 Transcribed By: RIGO on 10/20/171827 COPY TO: DENNIS VALDEZ MD FEMUR 2 VIEWS MINIMUM LEFT [facility] [address] [place] [address] Patient Name: MELVI DONG MR #: [id number] : 1960 Age/Sex: 57/F Req #: [id number] Adm Physician: Ordered by: DENNIS VALDEZ MD Report #: [id number] Location: RAD Room/Bed: Procedure: [id number] DX/FEMUR 2 VIEWS MINIMUM LEFT Exam Date: [...] 15 :47 Dictated By: EUGENIO CROUCH MD 1544 Transcribed By: MATTIE on 04/18/171546 COPY TO: DENNIS VALDEZ MD HIP LEFT 2-3 VW (+/- PELVIS) [place] [address] Patient Name: MELVI DONG MR #: [id number] : 1960 Age/Sex: 57/F Req #: [id number] Adm Physician: Ordered by: DENNIS VALDEZ MD Report #: [id number] Location: RAD Room/Bed: Procedure: DX/HIP LEFT 2-3 VW (+/- P SULEMAN) [...] at 15:48 Dictated By: EUGENIO CROUCH MD 47 Transcribed By: MATTIE on 04/18/171547 COPY TO: DENNIS VALDEZ MD MAMMOGRAPHY DIGITAL [place] [address] Patient Name: MELVI DONG MR #: [id number] : 1960 Age/Sex: 57/F Req #: [id number] [facility] Physician: Ordered by: DENNIS VALDEZ MD Report #: [id number] Location: MAMMO [facility]/Bed: Procedure: MG/MAMMOGRAPHY DIGITAL SCR BILAT Exam Date: 03/15/17 Exam Time: 1206 REPORT STATUS: Signed #[id number] - MGSCRBIL #BILATERAL DIGITAL SCREE NATIVIDAD MAMMOGRAM [...] appointment. Matt castelan Jr., D.O. cw/:03/17/2017 13:22:45 Licensed Nuclear Operator: Dagmar ESTRADA(R)(M), [facility] letter sent: Addit ional Imaging Needed Mammogram BI-RADS: 0 Indeterminate Dictated By: EMMANUELLE WASHINGTON DO 1322 Curiel scribed By: PARUL on 03/17/17 1322 COPY TO: DENNIS VALDEZ MD
[2019-12-19] MEDS ORDERED: NON-FORMULARY MEDICATION (Trazodone Hcl 100 MG) PO SCH (13:00)
[2019-12-19] MEDS ORDERED: DEXTROSE 50% SYRINGE 50 ML IV PRN (13:30)
[2019-12-19 15:21] LABS: CLARITY,URINE SL CLOUDY (CLEAR); COLOR,URINE YELLOW (YELLOW); LEUKOCYTE ESTERASE ,URINE NEGATIVE (NEGATIVE); NITRITE,URINE NEGATIVE (NEGATIVE); PROTEIN,URINE DIPSTICK 1+ (NEGATIVE)
[2019-12-19 15:22] LABS: BILIRUBIN,URINE NEGATIVE (NEGATIVE); KETONES,URINE NEGATIVE (NEGATIVE); URINE UROBILINOGEN 0.2 mg/dL (0.2 - 1)
[2019-12-19 15:35] LABS: BACTERIA,URINE MODERATE /HPF; EPITHELIAL CELLS,URINE FEW /LPF; TRANSITIONAL EPI CELLS,URINE MODERATE
[2019-12-19] MEDS: INSULIN LISPRO 100 UNIT/1 ML 3ML VIAL SQ SCH ×2 (16:29→20:54)
[2019-12-19] MEDS: MESALAMINE 0.375 GM CAPCR PO SCH (17:00)
[2019-12-19] MEDS: CLONIDINE HCL 0.1 MG TAB PO SCH (17:12)
--- NOTE | 2019-12-19 17:35 | NUR ---
Pt arrived to floor via stretcher resp even and unlabored at this time, pt then oriented to room and call light, bed in lowest position, bed rails up x2, pt able to ambulate from stretcher to bed, call light in reach.
[2019-12-19 17:49] VITALS: BP 167/71
--- NOTE | 2019-12-19 19:31 | NUR ---
report given to oncoming nurse. pt stable at shift change.
--- NOTE | 2019-12-19 20:39 | History and Physical ---
HISTORY OF PRESENT ILLNESS: This is a 59-year-old female with a history of uncontrolled diabetes mellitus, elevated LFTs, was in our way to do an ultrasound of the liver and after the procedure, the patient was taken to the waiting area where she was supposed to follow up . The patient apparently had an episode where she slumped and had lost about 30 seconds of consciousness, went to the floor, hit her elbow and is admitted to the hospital for syncopal episodes. PAST MEDICAL HISTORY: History of uncontrolled diabetes mellitus, history of elevated LFTs, history of ulcerative colitis, history of seizure disorder, history of hypertension, history of hyperlipidemia, history of osteoporosis, and history of long-term use of insulin, and irritable bowel syndrome. MEDICATIONS: At home include clonidine 0.1 mg twice a day, Lasix 80 mg daily, glucagon as needed, insulin sliding scale. The patient takes lactobacillus, levothyroxine 112 mcg daily, mesalamine 0.375 twice a day, Trileptal 300 mg at nighttime, pantoprazole 20 mg daily, pravastatin 20 mg at nighttime, Actonel 5 mg daily, trazodone 100 mg daily, and Toujeo 34 units daily. SOCIAL HISTORY: No EtOH, no IV drug abuse. The patient lives with mother. FAMILY HISTORY: Noncontributory. REVIEW OF SYSTEMS: Negative for chest pain. No shortness of breath. No nausea, no vomiting, or diarrhea. No constipation. Abdominal pain present. Positive for tenderness in the abdominal area and also for skin condition, which started with on take of tetracyclines. PAST SURGICAL HISTORY: History of hysterectomy and gallbladder removal. PHYSICAL EXAMINATION: VITAL SIGNS: Temperature is 98.3, pulse 95, respirations of 20, blood pressure is 183/65, pulse oximetry of 100% on room air. HEENT: Normocephalic, atraumatic. Pupils are reactive to light and accommodation. CVS: S1 and S2 normal. Regular rate and rhythm. ABDOMEN: Slightly distended and tender at the right upper quadrant. EXTREMITIES: N clubbing, no cyanosis, no edema. The patient has had a toe amputation secondary to osteomyelitis. INTEGUMENTARY SYSTEM: Positive for erythematous in the cubital fossa and also in the popliteal area and lower extremities. Otherwise no clubbing, no cyanosis. Positive for decreased pulses in both feet and also tenderness in the great left toe. Positive for vascular changes and diabetic changes. LABORATORY VALUES: White count is 4.96, hemoglobin 12.4, hematocrit of 39.5. Chemistry shows sodium 140, potassium 4.4, BUN of 14, creatinine 0.72, glucose 122, and alkaline phosphatase 201. Microbiology, none done. IMAGING STUDIES: Brain CT was done, status post fall. The patient had no acute abnormalities, mild generalized cerebral volume loss. ASSESSMENT: Ms. Swetha Pires is a 59-year-old female with: 1. Syncopal episode. Cause unknown. 2. Hypoglycemia. 3. Uncontrolled diabetes mellitus with neuropathy and peripheral vascular disease. 4. History of liver disease. 5. Drug reaction probably to tetracyclines. PLAN: Continue to monitor the patient. CT was negative. A carotid Doppler, echocardiogram, and MRI of the brain will be done. The patient also has a history of seizures. A consult can be done with Neurology. We will keep the patient and observe for about 24 hours. The patient can be discharged tomorrow if all symptoms have abated and all the tests come back negative. Further recommendation per clinical course. We will continue to monitor the patient. MD TYLOR Light/DRU /[id number]
--- NOTE | 2019-12-19 20:40 | NUR ---
RECEIVED PT IN BED AOX3 RESPIRATIONS ARE EVEN AND UNLABORED .DENIES PAIN BS 501 AND GIVEN 14 UNIT OF INSULIN AND NOTIFIED DR VALDEZ.CONTINUE TO MONITOR
[2019-12-19 20:41] VITALS: BP 167/71
[2019-12-19] MEDS ORDERED: TRAZODONE HCL 50 MG TAB PO PRN (21:00)
[2019-12-19] MEDS ORDERED: RISEDRONATE 5 MG TAB PO SCH (21:00)
[2019-12-19] MEDS: OXCARBAZEPINE 300 MG TAB PO SCH (21:06)
[2019-12-19] MEDS: PRAVASTATIN 20 MG TAB PO SCH (21:06)
[2019-12-19 21:07] VITALS: BP 118/90
[2019-12-19 23:35] VITALS: BP 118/90
[2019-12-19 23:36] VITALS: BP 118/90
[2019-12-20] VITALS (8 sets, daily range): BP systolic 103–143; BP diastolic 48–79
[2019-12-20] MEDS ORDERED: EFFEXOR XR150 MG (02:27)
[2019-12-20] MEDS ORDERED: OMEGA 3 1,0001 EACH (02:27)
[2019-12-20] MEDS ORDERED: VITAMIN C250 MG (02:27)
[2019-12-20] MEDS ORDERED: LEVOTHYROXINE112 MCG PO (05:32)
[2019-12-20] MEDS: LEVOTHYROXINE SODIUM 112 MCG TAB PO SCH (06:10)
--- NOTE | 2019-12-20 06:49 | NUR ---
BEDSIDE REPORT GIVEN TO THE ONCOMING NURSE
[2019-12-20] MEDS ORDERED: METHYLPREDNISOLONE SOD SUCC 40 MG/ML VIAL 1ML IV ONE (07:30)
[2019-12-20] MEDS: INSULIN LISPRO 100 UNIT/1 ML 3ML VIAL SQ SCH ×4 (07:30→20:33)
[2019-12-20] MEDS: CLONIDINE HCL 0.1 MG TAB PO SCH ×2 (08:18→16:58)
[2019-12-20] MEDS: PANTOPRAZOLE SOD 40 MG TABEC PO SCH (08:32)
[2019-12-20] MEDS: FUROSEMIDE 40 MG TAB PO SCH (08:34)
[2019-12-20] MEDS: MESALAMINE 0.375 GM CAPCR PO SCH ×2 (08:34→16:57)
[2019-12-20] MEDS ORDERED: NON-FORMULARY MEDICATION (Pantoprazole Sodium 40 MG) PO SCH (09:00)
[2019-12-20] MEDS: CLOBETASOL 0.05% CREAM 45GMS 1 EA/15 GM TUBE TOP SCH ×2 (09:00→16:58)
--- NOTE | 2019-12-20 09:17 | Progress Note ---
DATE: SUBJECTIVE: The patient came in with syncopal episode, had syncope about a couple of seconds. The patient is status post CT scan was negative. Complains of no syncopal episodes. No chest pain. No shortness of breath. Does complain of itching throughout the upper and lower extremities. Current medications noted. PHYSICAL EXAMINATION: VITAL SIGNS: Temperature is 97.3, pulse of 78, respirations 16, blood pressure is 103/48, pulse oximetry of 98%. HEENT: Normocephalic and atraumatic. Pupils are reactive. CVS: S1 and S2 normal. Regular rate and rhythm. ABDOMEN: Nontender, nondistended. EXTREMITIES: No clubbing. No cyanosis. Positive for trace edema. Positive for multiple welts in the upper and lower extremities. LABORATORY VALUES: Chemistries done yesterday, all within normal limits. Hematology was normal. Serology; coronavirus is still pending. Urine showed bacteria, but otherwise negative. ASSESSMENT: Ms. Swetha Pires with: 1. Syncopal episode. 2. Hypoglycemia. 3. Uncontrolled diabetes mellitus with neuropathy and peripheral vascular disease. 4. Drug reaction. PLAN: CT was negative. Carotid Doppler, echocardiogram, MRI to be done today. Once they are negative, the patient can be discharged pending results. Further recommendation per clinical course. We will continue to monitor the patient. She will be given clobetasol for her allergic reaction and a dose of Depo-Medrol 20 mg IV, has been ordered. Further recommendation per clinical course. Again disposition, can be discharged today after pending radiological studies. MD TYLOR Light/MODL /[id number]
--- NOTE | 2019-12-20 12:12 | Diagnostic Imaging Report ---
History: Syncope Comparison studies: Head CT 11/02/2016 Technique: Sagittal and axial T2 FS, axial DWI, axial T2*GRE, axial T1 FLAIR and axial coronal T2 FLAIR. Intravenous contrast: None Findings: Scalp: Normal in signal. No masses. Bone marrow: Normal in signal intensity. Brain sulci: Appropriate for patient's age. Ventricles: No hydrocephalus. Extra axial spaces: No mass, no fluid collection. Parenchyma: No abnormal signal intensities. No masses, hemorrhage, acute or chronic vascular insults. Suprasellar region: No abnormalities. Craniocervical junction: Patent foramen magnum. No Chiari malformation. Vessels: Normal flow-voids in the arteries and sinuses. Incidental findings: Bilateral intraocular lens replacement. Small bilateral maxillary sinus polyps or retention cysts. IMPRESSION: 1. No acute intracranial abnormalities. 2. No changes from the prior head CT of 12/19/2019. Signed by: Dr. Antwan Bonds M.D. on 12/20/2019 12:09 PM
--- NOTE | 2019-12-20 19:00 | NUR ---
Received bedside report from day nurse. Patient awake and resting in bed, no s/s of distress at this time. Bed locked and in low position, alarm on, side rails up x3, call light placed within reach. Patient instructed to call for assistance if needed, verbalized understanding. All safety measures in place. Will continue to monitor.
[2019-12-20] MEDS: OXCARBAZEPINE 300 MG TAB PO SCH (20:33)
[2019-12-20] MEDS: PRAVASTATIN 20 MG TAB PO SCH (20:33)
[2019-12-20] MEDS ORDERED: RISEDRONATE 5 MG PO SCH (21:00)
[2019-12-21] VITALS: BP 112/51
[2019-12-21 04:00] VITALS: BP 122/76
[2019-12-21] MEDS: LEVOTHYROXINE SODIUM 112 MCG TAB PO SCH (06:10)
--- NOTE | 2019-12-21 07:11 | NUR ---
Bedside report given to oncoming nurse. Patient awake and resting in bed, no s/s of distress at this time. All safety measures in place.
[2019-12-21 08:00] VITALS: BP 103/47
[2019-12-21] MEDS: INSULIN LISPRO 100 UNIT/1 ML 3ML VIAL SQ SCH ×2 (08:25→12:00)
[2019-12-21] MEDS: MESALAMINE 0.375 GM CAPCR PO SCH (08:25)
[2019-12-21] MEDS: PANTOPRAZOLE SOD 40 MG TABEC PO SCH (08:28)
[2019-12-21] MEDS: CLONIDINE HCL 0.1 MG TAB PO SCH (08:37)
[2019-12-21] MEDS ORDERED: INSULIN LISPRO 100 UNIT/1 ML 3ML VIAL SQ STA (09:00)
--- NOTE | 2019-12-21 09:00 | NUR ---
Notified Dr. Cesar Veliz patient's critical glucose serum 621, informed Dr. Escobar Accu-check was 596 and I had ordered glucose blood draw, post Accu-check, and administered 14 units of Humalog SQ per sliding scale, received orders to give an additional 4 units of Humalog and recheck sugar in 2 hours.
[2019-12-21] MEDS: FUROSEMIDE 40 MG TAB PO SCH (09:16)
[2019-12-21] MEDS: CLOBETASOL 0.05% CREAM 45GMS 1 EA/15 GM TUBE TOP SCH (09:17)
--- NOTE | 2019-12-21 09:17 | Progress Note ---
DATE: SUBJECTIVE: The patient is a 59-year-old female, who came in with syncopal episode while doing neurological procedures. MRI has been negative. Echo of 65% to 70% and MRI negative except for microvascular changes and preliminary studies of the carotids have been negative too. The patient's medicines have been reviewed. No complaints at this time and her rash has also gotten better. PHYSICAL EXAMINATION: VITAL SIGNS: Temperature is 98.1, pulse of 84, respirations of 20, blood pressure is 122/76, pulse oximetry of 100% on room air. HEENT: Normocephalic and atraumatic. Pupils are reactive. CVS: S1 and S2 normal. Regular rate and rhythm. ABDOMEN: Nontender and nondistended. EXTREMITIES: No clubbing, no cyanosis, no edema. The patient has vascular changes in the lower extremity, also amputation present. LABORATORY VALUES: None done today. Her blood sugars have been running in the 100 to 300s and this is normal for the patient. ASSESSMENT: Ms. Swetha Pires with: 1. Syncopal episode, status post workup, all negative, can be discharged home. 2. Hypoglycemia with labile blood sugars and brittle diabetes. Continue monitoring at home. 3. Acute drug reaction to doxycycline. We will give her one more dose of 20 mg Depo-Medrol and sent her home on clobetasol. 4. Further recommendation per clinical course. The patient can be followed up with me in about a week's time. MD TYLOR Light/MODL /[id number]
[2019-12-21 12:00] VITALS: BP 108/56
[2019-12-21] MEDS ORDERED: INSULIN LISPRO 100 UNIT/1 ML 3ML VIAL SQ ONE (13:30)
--- NOTE | 2019-12-21 15:55 | NUR ---
Patient discharged home verbalized understanding of discharge instructions.
[2019-12-21 16:00] VITALS: BP 104/45
== END 2019-12-21 15:54 | disposition home or self-care (01) ==
LOC: ER 10:01 → ERHOLD 11:52 → MED/SURG3 17:02
PROVIDERS: ADMIT Family Medicine; ATTEND Family Medicine
DX: R55 Syncope and collapse (principal); T36.4X5A Adverse effect of tetracyclines, initial encounter; S80.02XA Contusion of left knee, initial encounter; W01.0XXA Fall on same level from slipping, tripping and stumbling without subsequent striking against object, initial encounter; E13.649 Other specified diabetes mellitus with hypoglycemia without coma; E11.42 Type 2 diabetes mellitus with diabetic polyneuropathy; E11.51 Type 2 diabetes mellitus with diabetic peripheral angiopathy without gangrene; Z91.81 History of falling; Y93.01 Activity, walking, marching and hiking; Y92.238 Other place in hospital as the place of occurrence of the external cause; K21.9 Gastro-esophageal reflux disease without esophagitis; M19.90 Unspecified osteoarthritis, unspecified site; E53.8 Deficiency of other specified B group vitamins; K50.90 Crohn's disease, unspecified, without complications; Z96.642 Presence of left artificial hip joint; Z88.5 Allergy status to narcotic agent; Z88.0 Allergy status to penicillin; Z88.8 Allergy status to other drugs, medicaments and biological substances
CPT/HCPCS: 36415 ×3; 70450; 70551; 80053; 81001; 82550; 82553; 82947; 82948 ×3; 84484; 85025; 87635; 93005; 93306; 93880; 96372 ×2; 99284; G0378 ×3; J2920; S0164 ×2

== ENCOUNTER → 2019-12-19 | Outpatient (CLI) | payer MEDICARE, OTHER ==
[~2019-12-19] MED LIST changes: +EFFEXOR XR150 MG; +OMEGA 3 1,0001 EACH; +VITAMIN C250 MG
--- NOTE | 2019-12-19 10:14 | Diagnostic Imaging Report ---
Abdominal Ultrasound limited. Right upper quadrant. Clinical Diagnosis: Elevated liver enzymes Comparison: 03/18/2019 Technique: Multiple transaxial and longitudinal images were obtained through the right upper quadrant of the abdomen abdomen with real time ultrasonography. Low MHz transducer was utilized. Multiple images were submitted for interpretation. Report: Liver: The liver measures 11.8 cm in the right midaxillary line. There are no focal masses. There are no cysts. The echogenicity is increased. Gallbladder: Surgically absent. Biliary tree: There is no evidence of intra or extra hepatic biliary ductal dilatation. The common bile duct measures 3 mm. Portal vein: The portal vein measures 7 mm. There is hepatopedal flow. Hepatic veins:Unremarkable. Pancreas: The pancreatic tail is not well seen secondary to overlying bowel gas. The remainder of the visualized pancreas has normal echogenicity and no masses. Ascites: Absent Pleural Effusion: Absent Right kidney: The right kidney measures 9.1 x 3.7 x 3.9 cm. There is no mass, cyst or or hydronephrosis. IVC/Aorta: Partially seen segments demonstrate no abnormality. Impression: The findings suggestive of diffuse fatty infiltration of the liver. In the presence of elevated liver enzymes, steatohepatitis should be considered. The gallbladder surgically absent. The right kidney shows no echogenic calculi. Signed by: Adrian Starr MD on 12/19/2019 10:11 AM
== END ==
LOC: US 08:31
PROVIDERS: ATTEND Family Medicine
DX: R74.8 Abnormal levels of other serum enzymes (principal)
CPT/HCPCS: 76705

== ENCOUNTER → 2020-06-02 | Outpatient (CLI) | payer MEDICARE, OTHER ==
[~2020-06-02] MED LIST changes: +EFFEXOR XR150 MG; +OMEGA 3 1,0001 EACH; +VITAMIN C250 MG
--- NOTE | 2020-06-02 09:55 | Diagnostic Imaging Report ---
X-ray right foot 3 views History: Diabetes Findings: No acute fracture, subluxation, significant soft tissue swelling, soft tissue gas, radiopaque foreign body. Osteopenic bones. Chronic avulsion at the lateral malleolus. Faint vascular calcifications. Impression: No acute abnormality. Signed by: Adrian Starr MD on 06/02/2020 9:52 AM
== END ==
LOC: RAD 09:10
PROVIDERS: ATTEND Family Medicine
DX: E11.40 Type 2 diabetes mellitus with diabetic neuropathy, unspecified (principal); E11.65 Type 2 diabetes mellitus with hyperglycemia; M79.671 Pain in right foot

== ENCOUNTER → 2020-07-16 | Outpatient (CLI) | payer MEDICARE, OTHER | LOC: MAMMO 12:55 | PROVIDERS: ATTEND Family Medicine | DX: Z12.31 Encounter for screening mammogram for malignant neoplasm of breast (principal) | CPT/HCPCS: 77067 ==

== ENCOUNTER 2020-09-24 15:08 | Emergency (ER) | payer MEDICARE, OTHER ==
[~2020-09-24] VITALS: Ht 162.6 cm; Wt 83.9 kg
[2020-09-24] MEDS ORDERED: DOXYCYCLINE HY100 MG PO (16:40)
[2020-09-24 16:46] VITALS: BP 167/67
== END 2020-09-24 16:50 | disposition home or self-care (01) ==
LOC: ER 15:22
DX: L03.116 Cellulitis of left lower limb (principal); M79.89 Other specified soft tissue disorders; I10 Essential (primary) hypertension; E11.9 Type 2 diabetes mellitus without complications; K21.9 Gastro-esophageal reflux disease without esophagitis; M81.0 Age-related osteoporosis without current pathological fracture; M19.90 Unspecified osteoarthritis, unspecified site; F31.9 Bipolar disorder, unspecified; Z87.19 Personal history of other diseases of the digestive system
CPT/HCPCS: 93970; 99283

== ENCOUNTER 2020-09-28 03:53 | Inpatient (IN) | payer MEDICARE, OTHER ==
[~2020-09-28] VITALS: Ht 162.6 cm; Wt 82.6 kg
[2020-09-28] VITALS (7 sets, daily range): BP systolic 151–181; BP diastolic 56–70
[2020-09-28] MEDS ORDERED: ASPIRIN 81 MG CHEW TAB PO ONE (05:00)
[2020-09-28] MEDS ORDERED: SODIUM CHLORIDE 0.9% 1000ML 1,000 ML IV STA ×2 (05:38→06:20)
[2020-09-28] MEDS ORDERED: ONDANSETRON HCL INJ 2MG/ML 2ML 2 MG/ML VIAL IV STA (05:41)
[2020-09-28 05:44] LABS: BASOPHILS # (AUTO) 0.1 (0.0-0.1); BASOPHILS % 0.3 % (0.0-1.0); EOSINOPHILS # (AUTO) 0.5 (0.0-0.4); EOSINOPHILS % 3.8 % (0.0-6.0); HEMATOCRIT 33.5 % (34.2-44.1); HEMOGLOBIN 9.7 g/dL (12.0-16.0); LYMPHOCYTES # (AUTO) 0.6 (1.0-3.2); LYMPHOCYTES % 4.4 % (18.0-39.1); MEAN CORPUSCULAR HEMOGLOBIN 29.5 pg (28-32); MEAN CORPUSCULAR VOLUME 101.8 fL (81-99); MONOCYTES # (AUTO) 0.3 (0.2-0.8); MONOCYTES % 2.3 % (4.4-11.3); NEUTROPHILS # (AUTO) 12.5 (2.1-6.9); NEUTROPHILS % 87.2 % (38.7-80.0); PLATELET COUNT 289 x10e3/uL (140-360); RED BLOOD COUNT 3.29 x10e6/uL (3.6-5.1); RED CELL DISTRIBUTION WIDTH 13.8 % (11.7-14.4)
[2020-09-28] MEDS ORDERED: INSULIN REGULAR, HUMAN 100 UNIT/1 ML 3ML VIAL IV ONE (05:45)
[2020-09-28 06:04] LABS: INR 1.02
[2020-09-28 06:05] LABS: PARTIAL THROMBOPLASTIN TIME 19.6 seconds (23.8-35.5)
[2020-09-28 06:11] LABS: ALBUMIN 2.9 g/dL (3.5-5.0); ALBUMIN/GLOBULIN RATIO 0.7 (0.8-2.0); ANION GAP 35.4 mmol/L (8-16); CALCIUM 8.8 mg/dL (8.4-10.2); CREATININE, SERUM 1.4 mg/dL (0.57-1.11)
[2020-09-28] MEDS ORDERED: MEROPENEM 1GM 100 ML IV ONE ×2 (06:15→06:20)
[2020-09-28] MEDS ORDERED: VANCOMYCIN 1GM/NS 250 ML 250 ML IV ONE (06:15)
[2020-09-28 06:18] LABS: POTASSIUM 5.4 mmol/L (3.5-5.1)
[2020-09-28 06:43] LABS: CLARITY,URINE CLEAR (CLEAR); COLOR,URINE YELLOW (YELLOW); KETONES,URINE 2+ (NEGATIVE); LEUKOCYTE ESTERASE ,URINE NEGATIVE (NEGATIVE); NITRITE,URINE NEGATIVE (NEGATIVE); PROTEIN,URINE DIPSTICK NEGATIVE (NEGATIVE)
[2020-09-28 06:44] LABS: URINE UROBILINOGEN 0.2 mg/dL (0.2 - 1)
[2020-09-28] MEDS ORDERED: MAGNESIUM SULF 1GRAM/DEXTROSE 100 ML IV PRN (06:45)
[2020-09-28] MEDS ORDERED: POTASSIUM CHLORIDE 20MEQ/100ML 200 ML IV PRN (06:45)
[2020-09-28 06:59] LABS: CREATINE KINASE MB 1.8 ng/mL (0-5.0)
[2020-09-28 07:05] LABS: BACTERIA,URINE RARE /HPF; EPITHELIAL CELLS,URINE FEW /LPF; RBC,URINE 0-5 /HPF (0-5); WBC,URINE (MAN) 0-5 /HPF (0-5)
[2020-09-28] MEDS ORDERED: ONDANSETRON HCL INJ 2MG/ML 2ML 2 MG/ML VIAL IV PRN (07:15)
[2020-09-28 07:31] LABS: ABG HCO3 9 mmol/L (22-26); ABG PCO2 24 mmHg (35-45); ABG PH 7.19 (7.35-7.45); ABG PO2 156 mmHg (80-105); ABG TCO2 10
[2020-09-28] MEDS ORDERED: ACETAMINOPHEN 325 MG TAB PO PRN (08:30)
[2020-09-28] MEDS: DEXTROSE 5%/0.45% SOD CHL 1,000 ML IV SCH ×3 (09:05→23:23)
[2020-09-28] MEDS: SODIUM CHLORIDE 0.9% 1000ML 1,000 ML IV SCH ×5 (10:56→20:23)
[2020-09-28] MEDS: INSULIN REGULAR, HUMAN 3ML VL 100 UNIT in SODIUM CHLORIDE 0.9% 99 ML IV SCH ×4 (10:56→18:58)
[2020-09-28 11:44] LABS: ANION GAP 31.6 mmol/L (8-16); CALCIUM 8.3 mg/dL (8.4-10.2); CREATININE, SERUM 1.23 mg/dL (0.57-1.11); POTASSIUM 4.6 mmol/L (3.5-5.1)
[2020-09-28] MEDS: LEVOTHYROXINE SODIUM 125 MCG TAB PO SCH (11:50)
[2020-09-28 12:38] LABS: CREATINE KINASE MB 2.3 ng/mL (0-5.0)
[2020-09-28 13:25] LABS: ANION GAP 27.9 mmol/L (8-16); CALCIUM 8.2 mg/dL (8.4-10.2); CREATININE, SERUM 1.22 mg/dL (0.57-1.11); POTASSIUM 3.9 mmol/L (3.5-5.1)
[2020-09-28] MEDS: AZTREONAM 1 GM/NS 50 ML 50 ML IV SCH (15:25)
[2020-09-28 16:00] LABS: ANION GAP 22.1 mmol/L (8-16); CALCIUM 8.2 mg/dL (8.4-10.2); CREATININE, SERUM 1.21 mg/dL (0.57-1.11); POTASSIUM 4.1 mmol/L (3.5-5.1)
[2020-09-28 19:13] LABS: ANION GAP 15.4 mmol/L (8-16); CALCIUM 8.1 mg/dL (8.4-10.2); CREATININE, SERUM 0.96 mg/dL (0.57-1.11); MAGNESIUM 1.9 MG/DL (1.3-2.1); POTASSIUM 3.4 mmol/L (3.5-5.1)
[2020-09-28 19:32] LABS: CREATINE KINASE MB 3.1 ng/mL (0-5.0)
[2020-09-28] MEDS: PRAVASTATIN 20 MG TAB PO SCH (20:22)
[2020-09-28] MEDS: ZOLPIDEM TARTRATE 5 MG TAB PO PRN (20:23)
[2020-09-28] MEDS: ONDANSETRON HCL INJ 2MG/ML 2ML 2 MG/ML VIAL IV PRN (20:23)
[2020-09-28] MEDS: OXCARBAZEPINE 300 MG TAB PO SCH (20:23)
[2020-09-28] MEDS ORDERED: HYDRALAZINE HCL 20 MG/ML VIAL ONE (23:12)
[2020-09-28] MEDS: HYDRALAZINE HCL 20 MG/ML VIAL IV PRN (23:15)
[2020-09-28 23:40] LABS: ANION GAP 13.3 mmol/L (8-16); BLOOD UREA NITROGEN 17 mg/dL (7-26); BUN/CREATININE RATIO 21 (6-25); CALCIUM 8.3 mg/dL (8.4-10.2); CARBON DIOXIDE 23 mmol/L (22-29); CHLORIDE 115 mmol/L (98-107); CREATININE, SERUM 0.82 mg/dL (0.57-1.11); EST GLOMERULAR FILTRATION RATE > 60 ML/MIN (60-); GLUCOSE 96 mg/dL (74-118); MAGNESIUM 1.9 MG/DL (1.3-2.1); POTASSIUM 3.3 mmol/L (3.5-5.1); SODIUM 148 mmol/L (136-145)
[2020-09-29] VITALS (23 sets, daily range): BP systolic 109–189; BP diastolic 45–79
[2020-09-29 00:06] LABS: CREATINE KINASE MB 3.2 ng/mL (0-5.0)
[2020-09-29] MEDS: AZTREONAM 1 GM/NS 50 ML 50 ML IV SCH ×2 (02:31→14:26)
[2020-09-29] MEDS: SODIUM CHLORIDE 0.9% 1000ML 1,000 ML IV SCH ×2 (02:45→06:45)
[2020-09-29] MEDS: INSULIN REGULAR, HUMAN 3ML VL 100 UNIT in SODIUM CHLORIDE 0.9% 99 ML IV SCH ×2 (03:15)
[2020-09-29 05:18] LABS: BASOPHILS # (AUTO) 0.1 (0.0-0.1); BASOPHILS % 0.3 % (0.0-1.0); HEMATOCRIT 31.1 % (34.2-44.1); HEMOGLOBIN 9.7 g/dL (12.0-16.0); LYMPHOCYTES # (AUTO) 1.1 (1.0-3.2); LYMPHOCYTES % 5.7 % (18.0-39.1); MEAN CORPUSCULAR HEMOGLOBIN 29.7 pg (28-32); MEAN CORPUSCULAR HGB CONC 31.2 g/dL (31-35); MEAN CORPUSCULAR VOLUME 95.1 fL (81-99); MONOCYTES # (AUTO) 0.3 (0.2-0.8); MONOCYTES % 1.7 % (4.4-11.3); NEUTROPHILS # (AUTO) 18.2 (2.1-6.9); NEUTROPHILS % 91.6 % (38.7-80.0); PLATELET COUNT 304 x10e3/uL (140-360); RED BLOOD COUNT 3.27 x10e6/uL (3.6-5.1); RED CELL DISTRIBUTION WIDTH 14.1 % (11.7-14.4)
[2020-09-29] MEDS: LEVOTHYROXINE SODIUM 125 MCG TAB PO SCH (05:44)
[2020-09-29] MEDS ORDERED: FUROSEMIDE INJ 10 MG/ML 2 ML VIAL ONE (06:45)
[2020-09-29] MEDS ORDERED: POTASSIUM CHLORIDE 20MEQ/100ML 200 ML IV PRN (07:00)
[2020-09-29] MEDS ORDERED: POTASSIUM CHLORIDE 20MEQ/100ML 100 ML IV PRN (07:00)
[2020-09-29] MEDS: VANCOMYCIN 1GM/NS 250 ML 250 ML IV SCH (07:22)
[2020-09-29] MEDS: PANTOPRAZOLE SOD 40 MG TABEC PO SCH ×2 (07:22→08:09)
[2020-09-29] MEDS ORDERED: FUROSEMIDE INJ 10 MG/ML 2 ML VIAL IV ONE (07:30)
[2020-09-29 08:37] LABS: CREATINE KINASE MB 3.3 ng/mL (0-5.0)
[2020-09-29 08:56] LABS: ALBUMIN 2.6 g/dL (3.5-5.0); ALBUMIN/GLOBULIN RATIO 0.6 (0.8-2.0); ANION GAP 16.5 mmol/L (8-16); CALCIUM 7.9 mg/dL (8.4-10.2); CHOL/HDL RATIO 2.1 (3.0-3.6); CREATININE, SERUM 1.11 mg/dL (0.57-1.11); MAGNESIUM 1.9 MG/DL (1.3-2.1); POTASSIUM 3.5 mmol/L (3.5-5.1)
[2020-09-29] MEDS ORDERED: LEVOTHYROXINE SODIUM 112 MCG TAB PO SCH (09:00)
[2020-09-29] MEDS: VENLAFAXINE HCL 75 MG CAPCR PO SCH (09:00)
[2020-09-29] MEDS: PANTOPRAZOLE 40 MG 10ML VIAL IV SCH (09:00)
[2020-09-29] MEDS: MESALAMINE 0.375 GM CAPCR PO SCH ×2 (09:00→17:22)
[2020-09-29] MEDS ORDERED: INSULIN REGULAR, HUMAN 3ML VL 100 UNIT in SODIUM CHLORIDE 0.9% 99 ML IV SCH ×2 (09:30)
[2020-09-29] MEDS ORDERED: REGADENOSON 0.4 MG/5 ML SYR IV ONE (12:28)
[2020-09-29 14:23] LABS: ANION GAP 11.2 mmol/L (8-16); BLOOD UREA NITROGEN 22 mg/dL (7-26); BUN/CREATININE RATIO 26 (6-25); CALCIUM 7.9 mg/dL (8.4-10.2); CARBON DIOXIDE 26 mmol/L (22-29); CHLORIDE 114 mmol/L (98-107); CREATININE, SERUM 0.86 mg/dL (0.57-1.11); EST GLOMERULAR FILTRATION RATE > 60 ML/MIN (60-); GLUCOSE 85 mg/dL (74-118); POTASSIUM 3.2 mmol/L (3.5-5.1); SODIUM 148 mmol/L (136-145)
[2020-09-29] MEDS ORDERED: INSULIN GLARGINE 100 UNITS/ML VIAL SQ NR (16:00)
[2020-09-29] MEDS: ZOLPIDEM TARTRATE 5 MG TAB PO PRN (16:19)
[2020-09-29] MEDS: ONDANSETRON HCL INJ 2MG/ML 2ML 2 MG/ML VIAL IV PRN (16:21)
[2020-09-29] MEDS ORDERED: DEXTROSE 50% SYRINGE 50 ML IV PRN (17:15)
[2020-09-29] MEDS ORDERED: INSULIN GLARGINE 100 UNITS/ML VIAL SQ ONE ×2 (17:30→18:15)
[2020-09-29] MEDS: INSULIN REGULAR, HUMAN 100 UNIT/1 ML 3ML VIAL SQ SCH (20:14)
[2020-09-29] MEDS: OXCARBAZEPINE 300 MG TAB PO SCH (20:14)
[2020-09-29] MEDS: PRAVASTATIN 20 MG TAB PO SCH (20:14)
[2020-09-29] MEDS: HYDRALAZINE HCL 20 MG/ML VIAL IV PRN (20:32)
[2020-09-29 21:06] LABS: ANION GAP 18.3 mmol/L (8-16); CALCIUM 7.8 mg/dL (8.4-10.2); CREATININE, SERUM 1.09 mg/dL (0.57-1.11); POTASSIUM 4.3 mmol/L (3.5-5.1)
[2020-09-30] VITALS (13 sets, daily range): BP systolic 141–191; BP diastolic 54–92
[2020-09-30 00:58] LABS: ANION GAP 15.3 mmol/L (8-16); CALCIUM 7.8 mg/dL (8.4-10.2); CREATININE, SERUM 1.06 mg/dL (0.57-1.11); POTASSIUM 3.3 mmol/L (3.5-5.1)
[2020-09-30] MEDS: AZTREONAM 1 GM/NS 50 ML 50 ML IV SCH ×2 (01:35→14:00)
[2020-09-30] MEDS: SODIUM CHLORIDE 0.9% 1000ML 1,000 ML IV SCH ×2 (01:38→21:53)
[2020-09-30 05:09] LABS: ANION GAP 12.9 mmol/L (8-16); BLOOD UREA NITROGEN 25 mg/dL (7-26); BUN/CREATININE RATIO 30 (6-25); CARBON DIOXIDE 26 mmol/L (22-29); CHLORIDE 112 mmol/L (98-107); CREATININE, SERUM 0.84 mg/dL (0.57-1.11); EST GLOMERULAR FILTRATION RATE > 60 ML/MIN (60-); GLUCOSE 149 mg/dL (74-118); POTASSIUM 3.9 mmol/L (3.5-5.1); SODIUM 147 mmol/L (136-145)
[2020-09-30] MEDS: LEVOTHYROXINE SODIUM 125 MCG TAB PO SCH (06:05)
[2020-09-30] MEDS ORDERED: INSULIN GLARGINE 100 UNITS/ML VIAL SQ SCH (06:30)
[2020-09-30 06:56] LABS: BASOPHILS % 0.2 % (0.0-1.0); HEMATOCRIT 31.3 % (34.2-44.1); HEMOGLOBIN 9.8 g/dL (12.0-16.0); MEAN CORPUSCULAR HEMOGLOBIN 29.6 pg (28-32); MEAN CORPUSCULAR HGB CONC 31.3 g/dL (31-35); MEAN CORPUSCULAR VOLUME 94.6 fL (81-99); MONOCYTES # (AUTO) 0.8 (0.2-0.8); MONOCYTES % 3.8 % (4.4-11.3); NEUTROPHILS # (AUTO) 17.9 (2.1-6.9); NEUTROPHILS % 90.4 % (38.7-80.0); PLATELET COUNT 322 x10e3/uL (140-360); RED BLOOD COUNT 3.31 x10e6/uL (3.6-5.1); RED CELL DISTRIBUTION WIDTH 14.6 % (11.7-14.4)
[2020-09-30 07:34] LABS: ANISOCYTOSIS SLIGHT; LYMPHOCYTES % (MANUAL) 6 % (19-48); MONOCYTES % (MANUAL) 4 % (3.4-9.0); NEUTROPHILS % (MANUAL) 90 % (40-74); PLATELET ESTIMATE ADEQUATE; PLATELET MORPHOLOGY COMMENT NORMAL; RBC MORPHOLOGY COMMENT NORMAL
[2020-09-30] MEDS ORDERED: ONDANSETRON HCL INJ 2MG/ML 2ML 2 MG/ML VIAL ONE (08:20)
[2020-09-30] MEDS: VANCOMYCIN 1GM/NS 250 ML 250 ML IV SCH (09:59)
[2020-09-30] MEDS: PANTOPRAZOLE 40 MG 10ML VIAL IV SCH (09:59)
[2020-09-30] MEDS: INSULIN REGULAR, HUMAN 100 UNIT/1 ML 3ML VIAL SQ SCH ×4 (09:59→21:20)
[2020-09-30] MEDS: MESALAMINE 0.375 GM CAPCR PO SCH ×2 (10:03→16:14)
[2020-09-30] MEDS: VENLAFAXINE HCL 75 MG CAPCR PO SCH (10:03)
[2020-09-30] MEDS: OXCARBAZEPINE 300 MG TAB PO SCH (21:03)
[2020-09-30] MEDS: PRAVASTATIN 20 MG TAB PO SCH (21:03)
[2020-09-30] MEDS: HYDRALAZINE HCL 20 MG/ML VIAL IV PRN (23:45)
[2020-10-01] VITALS (9 sets, daily range): BP systolic 101–194; BP diastolic 55–85
[2020-10-01] MEDS: AZTREONAM 1 GM/NS 50 ML 50 ML IV SCH ×2 (02:05→14:47)
[2020-10-01] MEDS: LEVOTHYROXINE SODIUM 125 MCG TAB PO SCH (05:45)
[2020-10-01 06:04] LABS: BASOPHILS % 0.2 % (0.0-1.0); HEMATOCRIT 32.5 % (34.2-44.1); HEMOGLOBIN 10.2 g/dL (12.0-16.0); LYMPHOCYTES # (AUTO) 0.9 (1.0-3.2); LYMPHOCYTES % 6.5 % (18.0-39.1); MEAN CORPUSCULAR HEMOGLOBIN 29.9 pg (28-32); MEAN CORPUSCULAR HGB CONC 31.4 g/dL (31-35); MEAN CORPUSCULAR VOLUME 95.3 fL (81-99); MONOCYTES # (AUTO) 0.6 (0.2-0.8); MONOCYTES % 4.8 % (4.4-11.3); NEUTROPHILS # (AUTO) 11.4 (2.1-6.9); PLATELET COUNT 241 x10e3/uL (140-360); RED BLOOD COUNT 3.41 x10e6/uL (3.6-5.1); RED CELL DISTRIBUTION WIDTH 14.5 % (11.7-14.4)
[2020-10-01 06:37] LABS: ALANINE AMINOTRANSFERASE 54 IU/L (0-55); ALBUMIN 2.6 g/dL (3.5-5.0); ALBUMIN/GLOBULIN RATIO 0.6 (0.8-2.0); ALKALINE PHOSPHATASE 191 IU/L (40-150); ANION GAP 13.1 mmol/L (8-16); BLOOD UREA NITROGEN 20 mg/dL (7-26); BUN/CREATININE RATIO 30 (6-25); CALCIUM 7.8 mg/dL (8.4-10.2); CARBON DIOXIDE 28 mmol/L (22-29); CHLORIDE 106 mmol/L (98-107); CREATININE, SERUM 0.67 mg/dL (0.57-1.11); EST GLOMERULAR FILTRATION RATE > 60 ML/MIN (60-); GLUCOSE 156 mg/dL (74-118); POTASSIUM 3.1 mmol/L (3.5-5.1); SODIUM 144 mmol/L (136-145)
[2020-10-01] MEDS: INSULIN REGULAR, HUMAN 100 UNIT/1 ML 3ML VIAL SQ SCH ×4 (08:22→21:11)
[2020-10-01] MEDS: VENLAFAXINE HCL 75 MG CAPCR PO SCH (09:35)
[2020-10-01] MEDS: PANTOPRAZOLE 40 MG 10ML VIAL IV SCH (09:35)
[2020-10-01] MEDS: MESALAMINE 0.375 GM CAPCR PO SCH ×2 (09:35→17:28)
[2020-10-01] MEDS: VANCOMYCIN 1GM/NS 250 ML 250 ML IV SCH ×2 (09:35→20:51)
[2020-10-01] MEDS ORDERED: POTASSIUM CHLORIDE 20 MEQ TAB CR PO ONE (09:45)
[2020-10-01] MEDS: SODIUM CHLORIDE 0.9% 1000ML 1,000 ML IV SCH (17:28)
[2020-10-01] MEDS: OXCARBAZEPINE 300 MG TAB PO SCH (20:57)
[2020-10-01] MEDS: PRAVASTATIN 20 MG TAB PO SCH (20:57)
[2020-10-01] MEDS: HYDRALAZINE HCL 20 MG/ML VIAL IV PRN (20:58)
[2020-10-02] VITALS (7 sets, daily range): BP systolic 140–167; BP diastolic 46–71
[2020-10-02] MEDS: AZTREONAM 1 GM/NS 50 ML 50 ML IV SCH ×2 (01:48→13:30)
[2020-10-02] MEDS: LEVOTHYROXINE SODIUM 125 MCG TAB PO SCH (05:35)
[2020-10-02 06:32] LABS: BASOPHILS % 0.1 % (0.0-1.0); EOSINOPHILS % 0.4 % (0.0-6.0); HEMATOCRIT 31.3 % (34.2-44.1); HEMOGLOBIN 9.5 g/dL (12.0-16.0); LYMPHOCYTES # (AUTO) 0.7 (1.0-3.2); LYMPHOCYTES % 7.2 % (18.0-39.1); MEAN CORPUSCULAR HEMOGLOBIN 29.1 pg (28-32); MEAN CORPUSCULAR HGB CONC 30.4 g/dL (31-35); MEAN CORPUSCULAR VOLUME 95.7 fL (81-99); MONOCYTES # (AUTO) 0.4 (0.2-0.8); MONOCYTES % 4.7 % (4.4-11.3); NEUTROPHILS # (AUTO) 7.9 (2.1-6.9); NEUTROPHILS % 87.3 % (38.7-80.0); PLATELET COUNT 210 x10e3/uL (140-360); RED BLOOD COUNT 3.27 x10e6/uL (3.6-5.1); RED CELL DISTRIBUTION WIDTH 14.2 % (11.7-14.4)
[2020-10-02 07:03] LABS: ALANINE AMINOTRANSFERASE 60 IU/L (0-55); ALBUMIN 2.3 g/dL (3.5-5.0); ALBUMIN/GLOBULIN RATIO 0.6 (0.8-2.0); ALKALINE PHOSPHATASE 230 IU/L (40-150); ANION GAP 12.8 mmol/L (8-16); BLOOD UREA NITROGEN 17 mg/dL (7-26); BUN/CREATININE RATIO 25 (6-25); CALCIUM 7.7 mg/dL (8.4-10.2); CARBON DIOXIDE 29 mmol/L (22-29); CHLORIDE 105 mmol/L (98-107); CREATININE, SERUM 0.67 mg/dL (0.57-1.11); EST GLOMERULAR FILTRATION RATE > 60 ML/MIN (60-); GLUCOSE 274 mg/dL (74-118); SODIUM 143 mmol/L (136-145)
[2020-10-02 07:04] LABS: POTASSIUM 3.8 mmol/L (3.5-5.1)
[2020-10-02] MEDS: VENLAFAXINE HCL 75 MG CAPCR PO SCH (09:09)
[2020-10-02] MEDS: VANCOMYCIN 1GM/NS 250 ML 250 ML IV SCH (09:09)
[2020-10-02] MEDS: PANTOPRAZOLE 40 MG 10ML VIAL IV SCH (09:09)
[2020-10-02] MEDS: MESALAMINE 0.375 GM CAPCR PO SCH ×2 (09:09→16:45)
[2020-10-02] MEDS: INSULIN REGULAR, HUMAN 100 UNIT/1 ML 3ML VIAL SQ SCH ×3 (09:10→16:46)
[2020-10-02] MEDS ORDERED: ONDANSETRON HCL 4 MG ORAL DISINTEGRATING TAB PO PRN (19:45)
[2020-10-03] MEDS ORDERED: PANTOPRAZOLE SOD 40 MG TABEC PO SCH (07:30)
== END 2020-10-02 20:32 | DRG 871 ==
LOC: ER 04:11 → ERHOLD 06:35 → ICU 19:35 → MED/SURG3 09-30 08:27
PROVIDERS: ADMIT Family Medicine; ATTEND Family Medicine
PROC: 02HV33Z Insertion of Infusion Device into Superior Vena Cava, Percutaneous Approach (ICD-10-PCS; principal; 2020-09-28)
DX: A41.9 Sepsis, unspecified organism (principal); E10.10 Type 1 diabetes mellitus with ketoacidosis without coma; L03.116 Cellulitis of left lower limb; N17.9 Acute kidney failure, unspecified; E66.9 Obesity, unspecified; Z68.31 Body mass index [BMI] 31.0-31.9, adult; R07.9 Chest pain, unspecified; R79.89 Other specified abnormal findings of blood chemistry; D64.9 Anemia, unspecified; Z79.899 Other long term (current) drug therapy; E10.40 Type 1 diabetes mellitus with diabetic neuropathy, unspecified; E10.21 Type 1 diabetes mellitus with diabetic nephropathy; E10.319 Type 1 diabetes mellitus with unspecified diabetic retinopathy without macular edema; Z20.822 Contact with and (suspected) exposure to COVID-19
CPT/HCPCS: 36415; 36600; 71045; 78452; 80048; 80053; 80061; 80202; 81001; 82550; 82553; 82805; 82948; 83036; 83605; 83735; 83880; 84484; 85025; 85610; 85730; 87040; 87086; 93005; 93017; 93306; 93926; 93971; 97139; 99285; A9502; J0360; J1815; J1817; J1940; J2405; J3370; J3480; J7030; J7050; U0002

== ENCOUNTER 2020-10-26 14:59 | Emergency (ER) | payer MEDICARE, OTHER ==
[~2020-10-26] VITALS: Ht 157.5 cm; Wt 72.6 kg
[2020-10-26] MEDS ORDERED: DEXTROSE 50% SYRINGE 50 ML IV ONE (15:19)
[2020-10-26] MEDS ORDERED: DEXTROSE 50% SYRINGE 50 ML IV STA (15:21)
[2020-10-26] MEDS ORDERED: DEXTROSE 5% 1,000 ML IV ONE (15:30)
[2020-10-26 15:34] LABS: BASOPHILS # (AUTO) 0.1 (0.0-0.1); EOSINOPHILS # (AUTO) 0.8 (0.0-0.4); EOSINOPHILS % 11.3 % (0.0-6.0); HEMOGLOBIN 11.1 g/dL (12.0-16.0); LYMPHOCYTES # (AUTO) 2.7 (1.0-3.2); LYMPHOCYTES % 37.4 % (18.0-39.1); MEAN CORPUSCULAR HEMOGLOBIN 29.1 pg (28-32); MEAN CORPUSCULAR HGB CONC 30.8 g/dL (31-35); MEAN CORPUSCULAR VOLUME 94.5 fL (81-99); MONOCYTES # (AUTO) 0.4 (0.2-0.8); MONOCYTES % 5.2 % (4.4-11.3); NEUTROPHILS # (AUTO) 3.2 (2.1-6.9); NEUTROPHILS % 44.8 % (38.7-80.0); PLATELET COUNT 339 x10e3/uL (140-360); RED BLOOD COUNT 3.81 x10e6/uL (3.6-5.1); RED CELL DISTRIBUTION WIDTH 14.8 % (11.7-14.4)
[2020-10-26 15:39] LABS: INR 0.92; PROTHROMBIN TIME 12.9 seconds (11.9-14.5)
[2020-10-26 15:47] LABS: ALANINE AMINOTRANSFERASE 28 IU/L (0-55); ALBUMIN 3.4 g/dL (3.5-5.0); ALBUMIN/GLOBULIN RATIO 0.7 (0.8-2.0); ALKALINE PHOSPHATASE 254 IU/L (40-150); ANION GAP 16.6 mmol/L (8-16); BLOOD UREA NITROGEN 16 mg/dL (7-26); BUN/CREATININE RATIO 18 (6-25); CALCIUM 8.9 mg/dL (8.4-10.2); CARBON DIOXIDE 25 mmol/L (22-29); CHLORIDE 101 mmol/L (98-107); CREATINE KINASE 20 IU/L (29-168); CREATININE, SERUM 0.91 mg/dL (0.57-1.11); EST GLOMERULAR FILTRATION RATE > 60 ML/MIN (60-); MAGNESIUM 1.7 MG/DL (1.3-2.1); POTASSIUM 3.6 mmol/L (3.5-5.1); SODIUM 139 mmol/L (136-145)
[2020-10-26 15:48] LABS: GLUCOSE 55 mg/dL (74-118)
[2020-10-26 16:16] LABS: CLARITY,URINE CLEAR (CLEAR); COLOR,URINE YELLOW (YELLOW); KETONES,URINE NEGATIVE (NEGATIVE); LEUKOCYTE ESTERASE ,URINE NEGATIVE (NEGATIVE); NITRITE,URINE NEGATIVE (NEGATIVE); PROTEIN,URINE DIPSTICK TRACE (NEGATIVE); URINE UROBILINOGEN 0.2 mg/dL (0.2 - 1)
[2020-10-26 16:27] LABS: AMORPHOUS SEDIMENT,URINE MODERATE (FEW); BACTERIA,URINE FEW /HPF; HYALINE CASTS 0-1 (0-1)
== END 2020-10-26 21:43 | disposition home or self-care (01) ==
LOC: ER 15:01
DX: E11.649 Type 2 diabetes mellitus with hypoglycemia without coma (principal); E11.40 Type 2 diabetes mellitus with diabetic neuropathy, unspecified; K21.9 Gastro-esophageal reflux disease without esophagitis; Z96.642 Presence of left artificial hip joint
CPT/HCPCS: 36415; 70450; 71045; 80053; 81001; 82550; 82553; 82948; 83735; 84484; 85025; 85610; 85730; 87086; 93005; 99284; J7070; J7799

== ENCOUNTER 2020-12-27 12:20 | Emergency (ER) | payer MEDICARE, OTHER ==
[~2020-12-27] VITALS: Ht 157.5 cm; Wt 72.6 kg
[2020-12-27] MEDS ORDERED: SODIUM CHLORIDE 0.9% 1000ML 1,000 ML IV STA (13:05)
[2020-12-27 13:39] LABS: ABG PH 7.38 (7.35-7.45)
[2020-12-27 13:40] LABS: ABG HCO3 26 mmol/L (22-26); ABG PCO2 44 mmHg (35-45); ABG PO2 79 mmHg (80-105); ABG TCO2 27
[2020-12-27 14:02] LABS: BASOPHILS % 0.1 % (0.0-1.0); HEMATOCRIT 40.9 % (34.2-44.1); HEMOGLOBIN 13.5 g/dL (12.0-16.0); LYMPHOCYTES # (AUTO) 0.7 (1.0-3.2); LYMPHOCYTES % 7.8 % (18.0-39.1); MEAN CORPUSCULAR HEMOGLOBIN 29.6 pg (28-32); MEAN CORPUSCULAR VOLUME 89.7 fL (81-99); MONOCYTES # (AUTO) 0.2 (0.2-0.8); MONOCYTES % 1.7 % (4.4-11.3); NEUTROPHILS # (AUTO) 8.4 (2.1-6.9); NEUTROPHILS % 90.2 % (38.7-80.0); PLATELET COUNT 232 x10e3/uL (140-360); RED BLOOD COUNT 4.56 x10e6/uL (3.6-5.1); RED CELL DISTRIBUTION WIDTH 13.7 % (11.7-14.4)
[2020-12-27] MEDS ORDERED: ONDANSETRON HCL INJ 2MG/ML 2ML 2 MG/ML VIAL IV STA (15:08)
[2020-12-27] MEDS ORDERED: INSULIN REGULAR, HUMAN 100 UNIT/1 ML 3ML VIAL IV ONE (15:15)
[2020-12-27 15:50] LABS: INR 0.91; PROTHROMBIN TIME 12.8 seconds (11.9-14.5)
[2020-12-27 15:51] LABS: PARTIAL THROMBOPLASTIN TIME 25.4 seconds (23.8-35.5)
[2020-12-27 15:58] LABS: MAGNESIUM 1.8 MG/DL (1.3-2.1)
[2020-12-27 16:00] LABS: ALANINE AMINOTRANSFERASE 57 IU/L (0-55); ALBUMIN 3.5 g/dL (3.5-5.0); ALBUMIN/GLOBULIN RATIO 0.8 (0.8-2.0); ALKALINE PHOSPHATASE 175 IU/L (40-150); ANION GAP 23.5 mmol/L (8-16); BLOOD UREA NITROGEN 26 mg/dL (7-26); BUN/CREATININE RATIO 30 (6-25); CALCIUM 8.8 mg/dL (8.4-10.2); CARBON DIOXIDE 22 mmol/L (22-29); CHLORIDE 94 mmol/L (98-107); CREATININE, SERUM 0.86 mg/dL (0.57-1.11); EST GLOMERULAR FILTRATION RATE > 60 ML/MIN (60-); POTASSIUM 4.5 mmol/L (3.5-5.1); SODIUM 135 mmol/L (136-145)
[2020-12-27 16:04] LABS: GLUCOSE 506 mg/dL (74-118)
[2020-12-27 16:07] LABS: CREATINE KINASE MB 1.2 ng/mL (0-5.0)
[2020-12-27 17:58] VITALS: BP 116/78
== END 2020-12-27 18:22 | disposition home or self-care (01) ==
LOC: ER 13:10
DX: R11.2 Nausea with vomiting, unspecified (principal); E11.65 Type 2 diabetes mellitus with hyperglycemia; E11.40 Type 2 diabetes mellitus with diabetic neuropathy, unspecified; K21.9 Gastro-esophageal reflux disease without esophagitis
CPT/HCPCS: 36415; 36600; 71045; 80053; 82550; 82553; 82805; 82948; 83735; 84484; 85025; 85610; 85730; 99284; J1817; J2405; J7030

== ENCOUNTER 2020-12-28 18:46 | Emergency (ER) | payer MEDICARE, OTHER ==
[~2020-12-28] VITALS: Ht 162.6 cm; Wt 78.0 kg
[2020-12-28] MEDS ORDERED: ONDANSETRON HCL INJ 2MG/ML 2ML 2 MG/ML VIAL IV STA (19:18)
[2020-12-28] MEDS ORDERED: PANTOPRAZOLE 40 MG 10ML VIAL IV STA (19:18)
[2020-12-28] MEDS ORDERED: SODIUM CHLORIDE 0.9% 50ML 0 ML ONE (19:48)
[2020-12-28] MEDS ORDERED: IOPAMIDOL 370 MG/ML 200 ML INFUS..BTL INJ ONE (19:48)
[2020-12-28 20:12] LABS: BASOPHILS % 0.1 % (0.0-1.0); HEMATOCRIT 40.1 % (34.2-44.1); HEMOGLOBIN 13.1 g/dL (12.0-16.0); LYMPHOCYTES # (AUTO) 1.4 (1.0-3.2); LYMPHOCYTES % 10.4 % (18.0-39.1); MEAN CORPUSCULAR HEMOGLOBIN 29.4 pg (28-32); MEAN CORPUSCULAR HGB CONC 32.7 g/dL (31-35); MEAN CORPUSCULAR VOLUME 89.9 fL (81-99); MONOCYTES # (AUTO) 0.6 (0.2-0.8); MONOCYTES % 4.3 % (4.4-11.3); NEUTROPHILS # (AUTO) 11.7 (2.1-6.9); NEUTROPHILS % 84.8 % (38.7-80.0); PLATELET COUNT 283 x10e3/uL (140-360); RED BLOOD COUNT 4.46 x10e6/uL (3.6-5.1); RED CELL DISTRIBUTION WIDTH 13.5 % (11.7-14.4)
[2020-12-28] MEDS ORDERED: DIATRIZOATE MEGL/DIATRIZOA SOD 30 ML BTL PO ONE (20:32)
[2020-12-28 20:34] LABS: ALBUMIN 3.6 g/dL (3.5-5.0); ALBUMIN/GLOBULIN RATIO 0.8 (0.8-2.0); AMYLASE 30 U/L (25-125); ANION GAP 16.1 mmol/L (8-16); LIPASE 14 U/L (8-78); POTASSIUM 4.1 mmol/L (3.5-5.1)
[2020-12-28] MEDS ORDERED: SODIUM CHLORIDE 0.9% 500ML 500 ML ONE (20:57)
[2020-12-28] MEDS ORDERED: SODIUM CHLORIDE 0.9% 500ML 500 ML IV ONE (21:00)
[2020-12-28 21:13] LABS: CLARITY,URINE SL CLOUDY (CLEAR); COLOR,URINE YELLOW (YELLOW); KETONES,URINE TRACE (NEGATIVE); LEUKOCYTE ESTERASE ,URINE NEGATIVE (NEGATIVE); NITRITE,URINE POSITIVE (NEGATIVE); PROTEIN,URINE DIPSTICK >=300 (NEGATIVE); URINE UROBILINOGEN 0.2 mg/dL (0.2 - 1)
[2020-12-28 21:25] LABS: BACTERIA,URINE MODERATE /HPF; EPITHELIAL CELLS,URINE MODERATE /LPF
[2020-12-28] MEDS ORDERED: CEFTRIAXONE SOD 1 GM in SODIUM CHLORIDE 0.9% 50ML 50 ML IV ONE (21:45)
[2020-12-28] MEDS ORDERED: CEFTRIAXONE SOD 1 GM VIAL IV ONE (21:45)
== END 2020-12-28 21:45 | disposition home or self-care (01) ==
LOC: ER 19:00
DX: K44.9 Diaphragmatic hernia without obstruction or gangrene (principal); K29.70 Gastritis, unspecified, without bleeding; K21.9 Gastro-esophageal reflux disease without esophagitis; E11.40 Type 2 diabetes mellitus with diabetic neuropathy, unspecified; E11.319 Type 2 diabetes mellitus with unspecified diabetic retinopathy without macular edema; Z79.84 Long term (current) use of oral hypoglycemic drugs; Z79.899 Other long term (current) drug therapy; Z90.49 Acquired absence of other specified parts of digestive tract; Z96.642 Presence of left artificial hip joint
CPT/HCPCS: 36415; 74176; 80053; 81001; 82150; 82550; 82553; 83690; 84484; 85025; 93005; 99284; C9113; J0696; J2405; J7040; Q9967